=== PATIENT | male | born 1935 | race Caucasian/White ===

== ENCOUNTER → 2018-07-06 09:28 | Outpatient (CLI) | payer MEDICARE, OTHER, SELFPAY ==
--- NOTE | 2018-07-06 | DI.RAD.S_ITS ---
PROCEDURE: XR HIP W PEL IF DONE LT MIN 4V INDICATIONS: HIP PAIN TECHNIQUE: AP pelvis with lateral view(s) of the bilateral hip(s). COMPARISON: None. FINDINGS: Bones: No fractures or dislocations. Note is made of prior bilateral posterior fixation devices placed along the lower lumbosacral spine, spanning from L4-S1. Normal alignment established. At the hip joints bilaterally there is a mild degree of hip joint osteoarthritis without subluxation. Medial symphysis pubis shows moderate degenerative change. Pelvic ring appears intact. No suspicious bony lesions. Soft tissues: The visualized bowel gas pattern is normal. No suspicious soft tissue calcifications. IMPRESSION: No trauma, pelvis mild hip joint osteoarthritis is present bilaterally without subluxation. Dictated by: Talon Collier M.D. on 07/06/2018 at 10:06 Approved by: Talon Collier M.D. on 07/06/2018 at 10:07
== END ==
PROVIDERS: PCP Internal Medicine; Visit Provider Internal Medicine
DX: M16.0 Bilateral primary osteoarthritis of hip (principal); M25.551 Pain in right hip
CPT/HCPCS: 73522

== ENCOUNTER → 2019-01-16 07:20 | Outpatient (CLI) | payer MEDICARE, OTHER, SELFPAY ==
[2019-01-16 08:11] LABS: Add Manual Diff / Slide Review NO; Basophils Absolute Auto 0 /uL (0-100); Basophils Percent Auto 0.6 % (0-2); Eosinophils Absolute Auto 300 /uL (0-450); Eosinophils Percent Auto 5.3 % (2-4); Lymphocytes Absolute Auto 1900 /uL (1100-4500); Mean Corpuscular HGB Conc 33.3 % (30-36); Mean Corpuscular Hemoglobin 32.9 PG (26-34); Mean Corpuscular Volume 98.8 fL (80-100); Monocytes Absolute Auto 400 /uL (0-900); Neutrophils Absolute Auto 2800 /uL (1500-7000); Neutrophils Percent Auto 51.1 % (50-75); Platelet Count 294 X10^3/uL (150-400); Red Blood Cell Count 3.95 X10^6/uL (4.5-5.9); Red Cell Distribution Width 13.6 % (11.6-14.8); White Blood Cell Count 5.4 X10^3/uL (4.5-11.0)
[2019-01-16 08:36] LABS: Cholesterol 161 mg/dL (140-199); HDL Cholesterol 56 mg/dL (40-60); LDL Cholesterol Calculated 79 mg/dL (<100); Triglycerides 129 mg/dL (35-150)
[2019-01-16 09:11] LABS: Free T3, Triiodothyronine Free 3.27 pg/mL (2.77-5.27); Free T4, Direct Thyroxine 1.18 ng/dL (0.78-2.19)
[2019-01-16 09:24] LABS: Thyroid Stimulating Hormone 0.03 uIU/mL (0.47-4.68)
[2019-01-16 13:26] LABS: Alanine Aminotransferase 28 IU/L (21-72); Albumin 4.5 g/dL (3.5-5.0); Albumin Globulin Ratio 1.5 (1.0-2.8); Alkaline Phosphatase 49 U/L (38-126); Aspartate Aminotransferase 34 IU/L (17-59); Bilirubin Total 0.6 mg/dL (0.2-1.3); Blood Urea Nitrogen 25 mg/dL (9-20); Calcium 9.4 mg/dL (8.4-10.2); Carbon Dioxide 28 mmol/L (22-32); Chloride 103 mmol/L (98-107); Estimated Glomerular Filt Rate > 60.0 mL/min (>60); Globulin 3.1 g/dL (1.7-4.1); Glucose 84 mg/dL (80-110); HEMOLYSIS < 15 (0-50); Potassium 4.8 mmol/L (3.4-5.1); Sodium 139 mmol/L (137-145); Total Protein 7.6 g/dL (6.3-8.2)
== END ==
PROVIDERS: PCP Internal Medicine; Visit Provider Internal Medicine
DX: E78.00 Pure hypercholesterolemia, unspecified (principal); I10 Essential (primary) hypertension; E03.9 Hypothyroidism, unspecified; K22.70 Barrett's esophagus without dysplasia
CPT/HCPCS: 36415; 80053; 80061; 84439; 84443; 84481; 85025

== ENCOUNTER → 2019-09-10 10:28 | Outpatient (CLI) | payer MEDICARE, OTHER, SELFPAY ==
[2019-09-10 12:02] LABS: Alanine Aminotransferase 18 IU/L (21-72); Albumin 4.1 g/dL (3.5-5.0); Albumin Globulin Ratio 1.3 (1.0-2.8); Alkaline Phosphatase 49 U/L (38-126); Aspartate Aminotransferase 29 IU/L (17-59); BUN Creatinine Ratio 23.3 (6-22); Bilirubin Total 0.9 mg/dL (0.2-1.3); Blood Urea Nitrogen 28 mg/dL (9-20); Calcium 9.3 mg/dL (8.4-10.2); Carbon Dioxide 27 mmol/L (22-32); Chloride 101 mmol/L (98-107); Cholesterol 141 mg/dL (140-199); Estimated Glomerular Filt Rate 57.8 mL/min (>60); Globulin 3.1 g/dL (1.7-4.1); Glucose 70 mg/dL (80-110); HDL Cholesterol 38 mg/dL (40-60); HEMOLYSIS < 15 (0-50); LDL Cholesterol Calculated 82 mg/dL (<100); Sodium 134 mmol/L (137-145); Total Protein 7.2 g/dL (6.3-8.2); Triglycerides 106 mg/dL (35-150)
== END ==
PROVIDERS: PCP Internal Medicine; Visit Provider Internal Medicine
DX: E78.00 Pure hypercholesterolemia, unspecified (principal); I10 Essential (primary) hypertension
CPT/HCPCS: 36415; 80053; 80061

== ENCOUNTER 2019-12-23 13:45 | Outpatient (RCR) | payer MEDICARE, OTHER, SELFPAY ==
--- NOTE | 2019-11-29 14:30 | PT.OPPOC ---
Physical, Occupational & Speech Therapy At [facility] Current Diagnoses Unilateral primary osteoarthritis, left knee (11/29/19) Stiffness of left knee, not elsewhere classified (11/29/19) Other abnormalities of gait and mobility (11/29/19) Presence of unspecified artificial knee joint (11/29/19) Visit Care Team Role Provider Type Marino Gallegos MD Attending Provider Physician Primary Care Provider Specialty: Internal Medicine Address: [address] [place] [address], [facility] Email: [email or web address] Plan Of Care PT-OP-T Assessment and Plan Start: 11/29/19 15:22 Freq: Status: Active Protocol: Document 11/29/19 13:45 DCW (Rec: 11/29/19 15:56 DCW [id number]) Physical Therapy Assessment Rehab Potential Rehabilitation Potential Excellent Evaluation Complexity Number of Personal Factors/Comorbidities 1-2 Number of Body Systems Impaired 1-2 Clinical Presentation at Evaluation Stable Impairments Impairments Activity Tolerance,Functional Mobility,Integument,Pain,ROM, Soft Tissue Mobility,Strength Goals Three Impairment Pt post-surgical edema limits ROM Short Term Goal (STG) Pt left knee circumfrential measurements equal to right STG Duration 12/30/19 Half-Way Goal (LTG) Left knee ROM 0?-120? LTG Duration 01/28/20 Two Impairment Pt ambulates ~6 minutes at a time with a SPC Fixture Repairer Fabricator Goal (LTG) Pt to ambulate community distances for 20 minutes without the use of an assistive device LTG Duration 01/28/20 One Impairment Pt does not have an appropriate home exercise program Short Term Goal (STG) Pt to be independent and compliant with an appropriate HEP STG Duration 12/30/19 Assessment Summary Assessment Pt presents 3 days s/p left TKA. Pt is already doing exceptionally well with gait, ROM, strength, and balance. Skilled therapy should focus on improving ROM and strength, as well as reducing dependency on an assistive device. Pt shows appropriate gait pattern, no instances of toe drop, or problems with foot clearance or philippe difficulty. May benefit from modalities focused on pain and edema control. Physical Therapy Plan Frequency and Duration Frequency of Treatment 2x/Week Duration of Treatment 10 weeks Plan of Care Start Date 11/29/19 Plan of Care End Date 02/07/20 Therapeutic Interventions Therapeutic Interventions Balance Training,Gait Training ,Home Exercise Program,Joint Mobilizations,Manual Therapy, Neuromuscular Re-education, Patient/Caregiver Education, Self-Care/Home Management,Soft Tissue Mobilization, Therapeutic Exercises Modalities Cold Pack/Ice Massage,Electric Stimulation,Hot Packs, Ultrasound Next Visit Focus/Plan Next Note Type Treatment Note Next Visit Plan ROM, strengthening, gait/ assistive device training, Plan of Care Dates Plan of Care Start Date 11/29/19 Plan of Care End Date 02/07/20 Electronically Signed by: Kahlil Patel, PT 11/29/19 [id number] Please Sign and Return: I have reviewed this Plan of Care and certify that the skilled therapy services above are required to meet the patient?s needs. Physician Signature Date Printed Name and Credentials Clinical Instructor Signature Printed Name and Credentials
--- NOTE | 2019-11-29 14:30 | PT.OIE ---
Current Diagnoses Unilateral primary osteoarthritis, left knee (11/29/19) Stiffness of left knee, not elsewhere classified (11/29/19) Other abnormalities of gait and mobility (11/29/19) Presence of unspecified artificial knee joint (11/29/19) Visit Care Team Role Provider Type Marino Gallegos MD Attending Provider Physician Primary Care Provider Specialty: Internal Medicine Address: [address] [place] [address], [facility] Email: [email or web address] Physical Therapy Initial Evaluation PT-OP-A Visit Information Start: 11/29/19 15:22 Freq: Status: Active Protocol: Document 11/29/19 13:45 DCW (Rec: 11/29/19 15:40 DCW [id number]) Out-Patient Physical Therapy Visit Information Visit Information Visit Type Initial Evaluation Visit Start Time 13:45 Visit Stop Time 14:30 Total Visit Minutes 45 Visit Number 1 Number of CENTRAL STORES ATTENDANT Visits 0 Evaluation Information Evaluation Date 11/29/19 PT-OP-B Current Condition Start: 11/29/19 15:22 Freq: Status: Active Protocol: Document 11/29/19 13:45 DCW (Rec: 11/29/19 15:40 DCW [id number]) Current Condition History of Current Condition Onset Date 11/26/19 Current Complaints s/p L TKA History of Current Condition Pt is an 84 year old male three days s/p L TKA. Pt underwent surgical intervention after failure of conservative treatment. 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 Pt has been performing his HEP, and has been walking around quite a bit. Pt has already advanced from his FWW to a SPC. Notes he has two stairs to get into his garage, doesn't need to use them, but has anyway, and does not have any difficulty with them. Treatment Goals Patient/Caregiver Goals Get the left one healed up enough that I can get my right one done in the fall. PT-OP-C Subjective Start: 11/29/19 15:22 Freq: Status: Active Protocol: Document 11/29/19 13:45 DCW (Rec: 11/29/19 15:40 DCW [id number]) OP-PT Subjective Patient Comments Patient Comments It has been feeling good, but gets a little stiff when I sit down too long. Patient Reported Progress Improving Patient Questionnaires Lower Extremity Functional Scale LEFS Score 36/80 = 45% OP-PT Pain Assessment Pain Assessment Grid Paper Pain Assessment Grid Completed Yes Location Left Knee Intensity 7 Scale Used Numeric (1 - 10) PT-OP-E Functional Tests Start: 11/29/19 15:22 Freq: Status: Active Protocol: Document 11/29/19 13:45 DCW (Rec: 11/29/19 15:40 DCW [id number]) Functional Tests 6 Minute Walk Test Distance 910 Device Used SPC Comments 2.53 ft/sec PT-OP-F Manual Assessment Start: 11/29/19 15:22 Freq: Status: Active Protocol: Document 11/29/19 13:45 DCW (Rec: 11/29/19 15:40 DCW [id number]) Manual Assessments Joint Mobility Assessment Joint Mobility Assessment Moderate joint effusion PT-OP-J Posture/Palpation/Skin Start: 11/29/19 15:40 Freq: Status: Active Protocol: Document 11/29/19 13:45 DCW (Rec: 11/29/19 15:56 DCW [id number]) Skin Assessment Circumference Measurement 3 Location 10 cm inferior L joint line Measurement (Centimeters) 43.3 Comments 10 cm inferior R joint line= 40.6 2 Location 10 cm superior L joint line Measurement (Centimeters) 47.4 Comments 10 cm superior R joint line = 44.0 1 Location L knee Joint line Measurement (Centimeters) 45.6 Comments R knee joint line = 40.9 cm PT-OP-K Range of Motion Start: 11/29/19 15:22 Freq: Status: Active Protocol: Document 11/29/19 13:45 DCW (Rec: 11/29/19 15:40 DCW [id number]) Knee Goniometric Range of Motion Knee Right Patient Position Supine Flexion Active (degrees) 124 Flexion Passive (degrees) 132 Extension Active (degrees) 0 Extension Passive (degrees) 0 Left Patient Position Supine Flexion Active (degrees) 99 Flexion Passive (degrees) 102 Extension Active (degrees) 14 Extension Passive (degrees) 11 Knee ROM Limitations Knee ROM Limitations Muscle Weakness,Pain,Swelling PT-OP-M Strength Start: 11/29/19 15:22 Freq: Status: Active Protocol: Document 11/29/19 13:45 DCW (Rec: 11/29/19 15:40 DCW [id number]) Knee Strength Knee Manual Muscle Testing Right Flexion (S2) 4 Good Extension (L3) 4 Good Left Flexion (S2) 4+ Good+ Extension (L3) 4 Good PT-OP-Q Treatments Start: 11/29/19 15:22 Freq: Status: Active Protocol: Document 11/29/19 13:45 DCW (Rec: 11/29/19 15:40 DCW [id number]) Cardio Equipment Recumbent Bicycle Duration (Minutes) 5 Resistance 0 Seat Position 3 PT-OP-T Assessment and Plan Start: 11/29/19 15:22 Freq: Status: Active Protocol: Document 11/29/19 13:45 DCW (Rec: 11/29/19 15:56 DCW [id number]) Physical Therapy Assessment Rehab Potential Rehabilitation Potential Excellent Evaluation Complexity Number of Personal Factors/Comorbidities 1-2 Number of Body Systems Impaired 1-2 Clinical Presentation at Evaluation Stable Impairments Impairments Activity Tolerance,Functional Mobility,Integument,Pain,ROM, Soft Tissue Mobility,Strength Goals Three Impairment Pt post-surgical edema limits ROM Short Term Goal (STG) Pt left knee circumfrential measurements equal to right STG Duration 12/30/19 Fabric Worker Supervisor Goal (LTG) Left knee ROM 0?-120? LTG Duration 01/28/20 Two Impairment Pt ambulates ~6 minutes at a time with a SPC Correction Goal (LTG) Pt to ambulate community distances for 20 minutes without the use of an assistive device LTG Duration 01/28/20 One Impairment Pt does not have an appropriate home exercise program Short Term Goal (STG) Pt to be independent and compliant with an appropriate HEP STG Duration 12/30/19 Assessment Summary Assessment Pt presents 3 days s/p left TKA. Pt is already doing exceptionally well with gait, ROM, strength, and balance. Skilled therapy should focus on improving ROM and strength, as well as reducing dependency on an assistive device. Pt shows appropriate gait pattern, no instances of toe drop, or problems with foot clearance or philippe difficulty. May benefit from modalities focused on pain and edema control. Physical Therapy Plan Frequency and Duration Frequency of Treatment 2x/Week Duration of Treatment 10 weeks Plan of Care Start Date 11/29/19 Plan of Care End Date 02/07/20 Therapeutic Interventions Therapeutic Interventions Balance Training,Gait Training ,Home Exercise Program,Joint Mobilizations,Manual Therapy, Neuromuscular Re-education, Patient/Caregiver Education, Self-Care/Home Management,Soft Tissue Mobilization, Therapeutic Exercises Modalities Cold Pack/Ice Massage,Electric Stimulation,Hot Packs, Ultrasound Next Visit Focus/Plan Next Note Type Treatment Note Next Visit Plan ROM, strengthening, gait/ assistive device training,
--- NOTE | 2019-12-02 14:25 | PT.OTN ---
Current Diagnoses Unilateral primary osteoarthritis, left knee (12/02/19) Stiffness of left knee, not elsewhere classified (12/02/19) Other abnormalities of gait and mobility (12/02/19) Presence of unspecified artificial knee joint (12/02/19) Physical Therapy Treatment Note PT-OP-A Visit Information Start: 11/29/19 15:22 Freq: Status: Active Protocol: Document 12/02/19 13:45 DCW (Rec: 12/02/19 14:25 DCW [id number]) Out-Patient Physical Therapy Visit Information Visit Information Visit Type Treatment Note Visit Start Time 13:45 Visit Stop Time 14:30 Total Visit Minutes 45 Visit Number 2 Number of KEYSMITH Visits 0 Evaluation Information Evaluation Date 11/29/19 PT-OP-B Current Condition Start: 11/29/19 15:22 Freq: Status: Active Protocol: Document 11/29/19 13:45 DCW (Rec: 11/29/19 15:40 DCW [id number]) Current Condition History of Current Condition Onset Date 11/26/19 Current Complaints s/p L TKA History of Current Condition Pt is an 84 year old male three days s/p L TKA. Pt underwent surgical intervention after failure of conservative treatment. 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 Pt has been performing his HEP, and has been walking around quite a bit. Pt has already advanced from his FWW to a SPC. Notes he has two stairs to get into his garage, doesn't need to use them, but has anyway, and does not have any difficulty with them. Treatment Goals Patient/Caregiver Goals Get the left one healed up enough that I can get my right one done in the fall. PT-OP-C Subjective Start: 11/29/19 15:22 Freq: Status: Active Protocol: Document 12/02/19 13:45 DCW (Rec: 12/02/19 14:25 DCW [id number]) OP-PT Subjective Patient Comments Patient Comments Pt reports that he has been feeling more sore recently, believes that his swelling has been worse, which is limiting his ROM, but overall is still doing well. PT-OP-E Functional Tests Start: 11/29/19 15:22 Freq: Status: Active Protocol: Document 11/29/19 13:45 DCW (Rec: 11/29/19 15:40 DCW [id number]) Functional Tests 6 Minute Walk Test Distance 910 Device Used SPC Comments 2.53 ft/sec PT-OP-F Manual Assessment Start: 11/29/19 15:22 Freq: Status: Active Protocol: Document 11/29/19 13:45 DCW (Rec: 11/29/19 15:40 DCW [id number]) Manual Assessments Joint Mobility Assessment Joint Mobility Assessment Moderate joint effusion PT-OP-J Posture/Palpation/Skin Start: 11/29/19 15:40 Freq: Status: Active Protocol: Document 11/29/19 13:45 DCW (Rec: 11/29/19 15:56 DCW [id number]) Skin Assessment Circumference Measurement 3 Location 10 cm inferior L joint line Measurement (Centimeters) 43.3 Comments 10 cm inferior R joint line= 40.6 2 Location 10 cm superior L joint line Measurement (Centimeters) 47.4 Comments 10 cm superior R joint line = 44.0 1 Location L knee Joint line Measurement (Centimeters) 45.6 Comments R knee joint line = 40.9 cm PT-OP-K Range of Motion Start: 11/29/19 15:22 Freq: Status: Active Protocol: Document 11/29/19 13:45 DCW (Rec: 11/29/19 15:40 DCW [id number]) Knee Goniometric Range of Motion Knee Right Patient Position Supine Flexion Active (degrees) 124 Flexion Passive (degrees) 132 Extension Active (degrees) 0 Extension Passive (degrees) 0 Left Patient Position Supine Flexion Active (degrees) 99 Flexion Passive (degrees) 102 Extension Active (degrees) 14 Extension Passive (degrees) 11 Knee ROM Limitations Knee ROM Limitations Muscle Weakness,Pain,Swelling PT-OP-M Strength Start: 11/29/19 15:22 Freq: Status: Active Protocol: Document 11/29/19 13:45 DCW (Rec: 11/29/19 15:40 DCW [id number]) Knee Strength Knee Manual Muscle Testing Right Flexion (S2) 4 Good Extension (L3) 4 Good Left Flexion (S2) 4+ Good+ Extension (L3) 4 Good PT-OP-Q Treatments Start: 11/29/19 15:22 Freq: Status: Active Protocol: Document 12/02/19 13:45 DCW (Rec: 12/02/19 14:25 DCW [id number]) Cardio Equipment Recumbent Bicycle Duration (Minutes) 5 Resistance 0 Seat Position 3 Other multiple full rotations forward/backward Gym Equipment Shuttle Recovery Unilateral Squats Resistance 37# Bilateral Squats Resistance 75# Therapeutic Exercises Supine Exercises 2 Supine Exercise Name SLR Side bilateral Resistance 2# 1 Supine Exercise Name SAQ Side left Resistance 2# Standing Exercises 3 Standing Exercise Name Step Flexion stretch Side left Reps/Minutes 10 hold x10 2 Standing Exercise Name Hip Extension Side bilateral Resistance Lv 2 Equipment Used T-band 1 Standing Exercise Name TKE Side left Resistance Lv 2 Equipment Used T-band Other Exercises 1 Other Exercise Name Resisted side-stepping Resistance Yellow Equipment Used T-band PT-OP-T Assessment and Plan Start: 11/29/19 15:22 Freq: Status: Active Protocol: Document 12/02/19 13:45 DCW (Rec: 12/02/19 14:25 DCW [id number]) Physical Therapy Assessment Impairments Impairments Activity Tolerance,Functional Mobility,Integument,Pain,ROM, Soft Tissue Mobility,Strength Goals Three Impairment Pt post-surgical edema limits ROM Short Term Goal (STG) Pt left knee circumfrential measurements equal to right STG Duration 12/30/19 Security Services Manager Goal (LTG) Left knee ROM 0?-120? LTG Duration 01/28/20 Two Impairment Pt ambulates ~6 minutes at a time with a SPC Mcfp Goal (LTG) Pt to ambulate community distances for 20 minutes without the use of an assistive device LTG Duration 01/28/20 One Impairment Pt does not have an appropriate home exercise program Short Term Goal (STG) Pt to be independent and compliant with an appropriate HEP STG Duration 12/30/19 Assessment Summary Assessment Pt still doing well today, although noticeably more sore and swollen coming in to the clinic today. Pt tolerated new exercises well, but did note some increased soreness using leg press. Physical Therapy Plan Frequency and Duration Frequency of Treatment 2x/Week Duration of Treatment 10 weeks Plan of Care Start Date 11/29/19 Plan of Care End Date 02/07/20 Therapeutic Interventions Therapeutic Interventions Balance Training,Gait Training ,Home Exercise Program,Joint Mobilizations,Manual Therapy, Neuromuscular Re-education, Patient/Caregiver Education, Self-Care/Home Management,Soft Tissue Mobilization, Therapeutic Exercises Modalities Cold Pack/Ice Massage,Electric Stimulation,Hot Packs, Ultrasound Next Visit Focus/Plan Next Note Type Treatment Note Next Visit Plan ROM, strengthening, gait/ assistive device training,
--- NOTE | 2019-12-09 14:25 | PT.OTN ---
Current Diagnoses Unilateral primary osteoarthritis, left knee (12/09/19) Stiffness of left knee, not elsewhere classified (12/09/19) Other abnormalities of gait and mobility (12/09/19) Presence of unspecified artificial knee joint (12/09/19) Physical Therapy Treatment Note PT-OP-A Visit Information Start: 11/29/19 15:22 Freq: Status: Active Protocol: Document 12/09/19 13:45 DCW (Rec: 12/09/19 14:25 DCW [id number]) Out-Patient Physical Therapy Visit Information Visit Information Visit Type Treatment Note Visit Start Time 13:45 Visit Stop Time 14:35 Total Visit Minutes 50 Visit Number 3 Number of PACKAGE YARNS DRYING MACHINE OPERATOR Visits 0 Evaluation Information Evaluation Date 11/29/19 PT-OP-B Current Condition Start: 11/29/19 15:22 Freq: Status: Active Protocol: Document 11/29/19 13:45 DCW (Rec: 11/29/19 15:40 DCW [id number]) Current Condition History of Current Condition Onset Date 11/26/19 Current Complaints s/p L TKA History of Current Condition Pt is an 84 year old male three days s/p L TKA. Pt underwent surgical intervention after failure of conservative treatment. 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 Pt has been performing his HEP, and has been walking around quite a bit. Pt has already advanced from his FWW to a SPC. Notes he has two stairs to get into his garage, doesn't need to use them, but has anyway, and does not have any difficulty with them. Treatment Goals Patient/Caregiver Goals Get the left one healed up enough that I can get my right one done in the fall. PT-OP-C Subjective Start: 11/29/19 15:22 Freq: Status: Active Protocol: Document 12/09/19 13:45 DCW (Rec: 12/09/19 14:25 DCW [id number]) OP-PT Subjective Patient Comments Patient Comments I'm doing alright today. I had a bit of a relapse yesterday. I picked up something I probably shouldn't have, and carried it farther than I probably should have. I was pretty sore afterward. PT-OP-E Functional Tests Start: 11/29/19 15:22 Freq: Status: Active Protocol: Document 11/29/19 13:45 DCW (Rec: 11/29/19 15:40 DCW [id number]) Functional Tests 6 Minute Walk Test Distance 910 Device Used SPC Comments 2.53 ft/sec PT-OP-F Manual Assessment Start: 11/29/19 15:22 Freq: Status: Active Protocol: Document 11/29/19 13:45 DCW (Rec: 11/29/19 15:40 DCW [id number]) Manual Assessments Joint Mobility Assessment Joint Mobility Assessment Moderate joint effusion PT-OP-J Posture/Palpation/Skin Start: 11/29/19 15:40 Freq: Status: Active Protocol: Document 11/29/19 13:45 DCW (Rec: 11/29/19 15:56 DCW [id number]) Skin Assessment Circumference Measurement 3 Location 10 cm inferior L joint line Measurement (Centimeters) 43.3 Comments 10 cm inferior R joint line= 40.6 2 Location 10 cm superior L joint line Measurement (Centimeters) 47.4 Comments 10 cm superior R joint line = 44.0 1 Location L knee Joint line Measurement (Centimeters) 45.6 Comments R knee joint line = 40.9 cm PT-OP-K Range of Motion Start: 11/29/19 15:22 Freq: Status: Active Protocol: Document 11/29/19 13:45 DCW (Rec: 11/29/19 15:40 DCW [id number]) Knee Goniometric Range of Motion Knee Right Patient Position Supine Flexion Active (degrees) 124 Flexion Passive (degrees) 132 Extension Active (degrees) 0 Extension Passive (degrees) 0 Left Patient Position Supine Flexion Active (degrees) 99 Flexion Passive (degrees) 102 Extension Active (degrees) 14 Extension Passive (degrees) 11 Knee ROM Limitations Knee ROM Limitations Muscle Weakness,Pain,Swelling PT-OP-M Strength Start: 11/29/19 15:22 Freq: Status: Active Protocol: Document 11/29/19 13:45 DCW (Rec: 11/29/19 15:40 DCW [id number]) Knee Strength Knee Manual Muscle Testing Right Flexion (S2) 4 Good Extension (L3) 4 Good Left Flexion (S2) 4+ Good+ Extension (L3) 4 Good PT-OP-Q Treatments Start: 11/29/19 15:22 Freq: Status: Active Protocol: Document 12/09/19 13:45 DCW (Rec: 12/09/19 14:25 DCW [id number]) Cardio Equipment Recumbent Bicycle Duration (Minutes) 5 Resistance 2 Seat Position 3 Gym Equipment Shuttle Recovery Unilateral Squats Resistance 37# Bilateral Squats Resistance 87# Therapeutic Exercises Supine Exercises 4 Supine Exercise Name Bridging 3 Supine Exercise Name Knee extension stretch Side left Resistance 5# 2 Supine Exercise Name SLR Side bilateral Resistance 3# 1 Supine Exercise Name SAQ Side left Resistance 5# Sitting Exercises 2 Sitting Exercise Name Hamstring curls Side bilateral Resistance Lv 2 Equipment Used T-band 1 Sitting Exercise Name LAQ Side bilateral Resistance 5# Standing Exercises 3 Standing Exercise Name Step Flexion stretch Side left Reps/Minutes 10 hold x10 2 Standing Exercise Name Hip Extension Side bilateral Resistance Yellow Equipment Used T-band 1 Standing Exercise Name TKE Side left Resistance Lv 3 Equipment Used T-band Other Exercises 1 Other Exercise Name Resisted side-stepping Resistance Yellow Equipment Used T-band Manual Therapy Treatment Other Other Manual Treatments PROM Flexion/Extension PT-OP-T Assessment and Plan Start: 11/29/19 15:22 Freq: Status: Active Protocol: Document 12/09/19 13:45 DCW (Rec: 12/09/19 14:25 DCW [id number]) Physical Therapy Assessment Impairments Impairments Activity Tolerance,Functional Mobility,Integument,Pain,ROM, Soft Tissue Mobility,Strength Goals Three Impairment Pt post-surgical edema limits ROM Short Term Goal (STG) Pt left knee circumfrential measurements equal to right STG Duration 12/30/19 Skilled Nursing Goal (LTG) Left knee ROM 0?-120? LTG Duration 01/28/20 Two Impairment Pt ambulates ~6 minutes at a time with a SPC Skilled Nursing Goal (LTG) Pt to ambulate community distances for 20 minutes without the use of an assistive device LTG Duration 01/28/20 One Impairment Pt does not have an appropriate home exercise program Short Term Goal (STG) Pt to be independent and compliant with an appropriate HEP STG Duration 12/30/19 Assessment Summary Assessment Pt continuing to progress well , improved ROM, flexion increased from 102->110. Physical Therapy Plan Frequency and Duration Frequency of Treatment 2x/Week Duration of Treatment 10 weeks Plan of Care Start Date 11/29/19 Plan of Care End Date 02/07/20 Therapeutic Interventions Therapeutic Interventions Balance Training,Gait Training ,Home Exercise Program,Joint Mobilizations,Manual Therapy, Neuromuscular Re-education, Patient/Caregiver Education, Self-Care/Home Management,Soft Tissue Mobilization, Therapeutic Exercises Modalities Cold Pack/Ice Massage,Electric Stimulation,Hot Packs, Ultrasound Next Visit Focus/Plan Next Note Type Treatment Note Next Visit Plan ROM, strengthening, gait/ assistive device training,
--- NOTE | 2019-12-11 14:37 | PT.OTN ---
Current Diagnoses Unilateral primary osteoarthritis, left knee (12/11/19) Stiffness of left knee, not elsewhere classified (12/11/19) Other abnormalities of gait and mobility (12/11/19) Presence of unspecified artificial knee joint (12/11/19) Physical Therapy Treatment Note PT-OP-A Visit Information Start: 11/29/19 15:22 Freq: Status: Active Protocol: Document 12/11/19 13:45 DCW (Rec: 12/11/19 14:36 DCW [id number]) Out-Patient Physical Therapy Visit Information Visit Information Visit Type Treatment Note Visit Start Time 13:45 Visit Stop Time 14:35 Total Visit Minutes 50 Visit Number 3 Number of GUILLOTINE OPERATOR Visits 0 Evaluation Information Evaluation Date 11/29/19 PT-OP-B Current Condition Start: 11/29/19 15:22 Freq: Status: Active Protocol: Document 11/29/19 13:45 DCW (Rec: 11/29/19 15:40 DCW [id number]) Current Condition History of Current Condition Onset Date 11/26/19 Current Complaints s/p L TKA History of Current Condition Pt is an 84 year old male three days s/p L TKA. Pt underwent surgical intervention after failure of conservative treatment. 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 Pt has been performing his HEP, and has been walking around quite a bit. Pt has already advanced from his FWW to a SPC. Notes he has two stairs to get into his garage, doesn't need to use them, but has anyway, and does not have any difficulty with them. Treatment Goals Patient/Caregiver Goals Get the left one healed up enough that I can get my right one done in the fall. PT-OP-C Subjective Start: 11/29/19 15:22 Freq: Status: Active Protocol: Document 12/11/19 13:45 DCW (Rec: 12/11/19 14:36 DCW [id number]) OP-PT Subjective Patient Comments Patient Comments Pt reports his knee has been pretty sore since last Monday, right under the knee cap. Pt thinks he may have strainded something. PT-OP-E Functional Tests Start: 11/29/19 15:22 Freq: Status: Active Protocol: Document 11/29/19 13:45 DCW (Rec: 11/29/19 15:40 DCW [id number]) Functional Tests 6 Minute Walk Test Distance 910 Device Used SPC Comments 2.53 ft/sec PT-OP-F Manual Assessment Start: 11/29/19 15:22 Freq: Status: Active Protocol: Document 11/29/19 13:45 DCW (Rec: 11/29/19 15:40 DCW [id number]) Manual Assessments Joint Mobility Assessment Joint Mobility Assessment Moderate joint effusion PT-OP-J Posture/Palpation/Skin Start: 11/29/19 15:40 Freq: Status: Active Protocol: Document 11/29/19 13:45 DCW (Rec: 11/29/19 15:56 DCW [id number]) Skin Assessment Circumference Measurement 3 Location 10 cm inferior L joint line Measurement (Centimeters) 43.3 Comments 10 cm inferior R joint line= 40.6 2 Location 10 cm superior L joint line Measurement (Centimeters) 47.4 Comments 10 cm superior R joint line = 44.0 1 Location L knee Joint line Measurement (Centimeters) 45.6 Comments R knee joint line = 40.9 cm PT-OP-K Range of Motion Start: 11/29/19 15:22 Freq: Status: Active Protocol: Document 11/29/19 13:45 DCW (Rec: 11/29/19 15:40 DCW [id number]) Knee Goniometric Range of Motion Knee Right Patient Position Supine Flexion Active (degrees) 124 Flexion Passive (degrees) 132 Extension Active (degrees) 0 Extension Passive (degrees) 0 Left Patient Position Supine Flexion Active (degrees) 99 Flexion Passive (degrees) 102 Extension Active (degrees) 14 Extension Passive (degrees) 11 Knee ROM Limitations Knee ROM Limitations Muscle Weakness,Pain,Swelling PT-OP-M Strength Start: 11/29/19 15:22 Freq: Status: Active Protocol: Document 11/29/19 13:45 DCW (Rec: 11/29/19 15:40 DCW [id number]) Knee Strength Knee Manual Muscle Testing Right Flexion (S2) 4 Good Extension (L3) 4 Good Left Flexion (S2) 4+ Good+ Extension (L3) 4 Good PT-OP-Q Treatments Start: 11/29/19 15:22 Freq: Status: Active Protocol: Document 12/11/19 13:45 DCW (Rec: 12/11/19 14:36 DCW [id number]) Cardio Equipment Recumbent Bicycle Duration (Minutes) 5 Resistance 3 Seat Position 3 Gym Equipment Shuttle Recovery Unilateral Squats Resistance 50# Bilateral Squats Resistance 87# Therapeutic Ball Resisted hip flexion Exercise Details Resisted hip/knee flexion with foot on ball Ball Size/Color Blue - 45 cm Lv 3 T-band Body Position Supine Therapeutic Exercises Supine Exercises 3 Supine Exercise Name Knee extension stretch Side left Resistance 5# 2 Supine Exercise Name SLR Side bilateral Resistance 5# Sitting Exercises 2 Sitting Exercise Name Hamstring curls Side bilateral Resistance Lv 2 Equipment Used T-band 1 Sitting Exercise Name LAQ Side bilateral Resistance 5# Standing Exercises 4 Standing Exercise Name Step-ups Equipment Used 6 step, railing 3 Standing Exercise Name Step Flexion stretch Side left Reps/Minutes 10 hold x10 2 Standing Exercise Name Hip Extension Side bilateral Resistance Yellow Equipment Used T-band Other Exercises 1 Other Exercise Name Resisted side-stepping Resistance Yellow Equipment Used T-band Manual Therapy Treatment Other Other Manual Treatments PROM Flexion/Extension PT-OP-R Modalities Start: 11/29/19 15:22 Freq: Status: Active Protocol: Document 12/11/19 13:45 DCW (Rec: 12/11/19 14:37 DCW [id number]) Hot Pack/Cold Pack Treatment Cold Pack Location L knee Patient Position Hooklying Treatment Duration (minutes) 10 Patient Tolerance Good PT-OP-T Assessment and Plan Start: 11/29/19 15:22 Freq: Status: Active Protocol: Document 12/11/19 13:45 DCW (Rec: 12/11/19 14:36 DCW [id number]) Physical Therapy Assessment Impairments Impairments Activity Tolerance,Functional Mobility,Integument,Pain,ROM, Soft Tissue Mobility,Strength Goals Three Impairment Pt post-surgical edema limits ROM Short Term Goal (STG) Pt left knee circumfrential measurements equal to right STG Duration 12/30/19 Personal Lines Advisor Goal (LTG) Left knee ROM 0?-120? LTG Duration 01/28/20 Two Impairment Pt ambulates ~6 minutes at a time with a SPC Penitentiary Goal (LTG) Pt to ambulate community distances for 20 minutes without the use of an assistive device LTG Duration 01/28/20 One Impairment Pt does not have an appropriate home exercise program Short Term Goal (STG) Pt to be independent and compliant with an appropriate HEP STG Duration 12/30/19 Assessment Summary Assessment Pt showing advancement with ROM and strength, motivated to increase HEP. Pt notes he is planning to try to schedule a TKA for his R knee in June. Physical Therapy Plan Frequency and Duration Frequency of Treatment 2x/Week Duration of Treatment 10 weeks Plan of Care Start Date 11/29/19 Plan of Care End Date 02/07/20 Therapeutic Interventions Therapeutic Interventions Balance Training,Gait Training ,Home Exercise Program,Joint Mobilizations,Manual Therapy, Neuromuscular Re-education, Patient/Caregiver Education, Self-Care/Home Management,Soft Tissue Mobilization, Therapeutic Exercises Modalities Cold Pack/Ice Massage,Electric Stimulation,Hot Packs, Ultrasound Next Visit Focus/Plan Next Note Type Treatment Note Next Visit Plan ROM, strengthening, gait/ assistive device training,
--- NOTE | 2019-12-16 14:27 | PT.OTN ---
Current Diagnoses Unilateral primary osteoarthritis, left knee (12/16/19) Stiffness of left knee, not elsewhere classified (12/16/19) Other abnormalities of gait and mobility (12/16/19) Presence of unspecified artificial knee joint (12/16/19) Physical Therapy Treatment Note PT-OP-A Visit Information Start: 11/29/19 15:22 Freq: Status: Active Protocol: Document 12/16/19 13:45 DCW (Rec: 12/16/19 14:26 DCW [id number]) Out-Patient Physical Therapy Visit Information Visit Information Visit Type Treatment Note Visit Start Time 13:45 Visit Stop Time 14:35 Total Visit Minutes 50 Visit Number 5 Number of TEAM OTR TRUCK DRIVER Visits 0 Evaluation Information Evaluation Date 11/29/19 PT-OP-B Current Condition Start: 11/29/19 15:22 Freq: Status: Active Protocol: Document 11/29/19 13:45 DCW (Rec: 11/29/19 15:40 DCW [id number]) Current Condition History of Current Condition Onset Date 11/26/19 Current Complaints s/p L TKA History of Current Condition Pt is an 84 year old male three days s/p L TKA. Pt underwent surgical intervention after failure of conservative treatment. 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 Pt has been performing his HEP, and has been walking around quite a bit. Pt has already advanced from his FWW to a SPC. Notes he has two stairs to get into his garage, doesn't need to use them, but has anyway, and does not have any difficulty with them. Treatment Goals Patient/Caregiver Goals Get the left one healed up enough that I can get my right one done in the fall. PT-OP-C Subjective Start: 11/29/19 15:22 Freq: Status: Active Protocol: Document 12/16/19 13:45 DCW (Rec: 12/16/19 14:26 DCW [id number]) OP-PT Subjective Patient Comments Patient Comments I feel great. I walked the two and a half mile loop around [place]. My knees are a little sore after that, but I've really been working them hard. PT-OP-E Functional Tests Start: 11/29/19 15:22 Freq: Status: Active Protocol: Document 11/29/19 13:45 DCW (Rec: 11/29/19 15:40 DCW [id number]) Functional Tests 6 Minute Walk Test Distance 910 Device Used SPC Comments 2.53 ft/sec PT-OP-F Manual Assessment Start: 11/29/19 15:22 Freq: Status: Active Protocol: Document 11/29/19 13:45 DCW (Rec: 11/29/19 15:40 DCW [id number]) Manual Assessments Joint Mobility Assessment Joint Mobility Assessment Moderate joint effusion PT-OP-J Posture/Palpation/Skin Start: 11/29/19 15:40 Freq: Status: Active Protocol: Document 11/29/19 13:45 DCW (Rec: 11/29/19 15:56 DCW [id number]) Skin Assessment Circumference Measurement 3 Location 10 cm inferior L joint line Measurement (Centimeters) 43.3 Comments 10 cm inferior R joint line= 40.6 2 Location 10 cm superior L joint line Measurement (Centimeters) 47.4 Comments 10 cm superior R joint line = 44.0 1 Location L knee Joint line Measurement (Centimeters) 45.6 Comments R knee joint line = 40.9 cm PT-OP-K Range of Motion Start: 11/29/19 15:22 Freq: Status: Active Protocol: Document 11/29/19 13:45 DCW (Rec: 11/29/19 15:40 DCW [id number]) Knee Goniometric Range of Motion Knee Right Patient Position Supine Flexion Active (degrees) 124 Flexion Passive (degrees) 132 Extension Active (degrees) 0 Extension Passive (degrees) 0 Left Patient Position Supine Flexion Active (degrees) 99 Flexion Passive (degrees) 102 Extension Active (degrees) 14 Extension Passive (degrees) 11 Knee ROM Limitations Knee ROM Limitations Muscle Weakness,Pain,Swelling PT-OP-M Strength Start: 11/29/19 15:22 Freq: Status: Active Protocol: Document 11/29/19 13:45 DCW (Rec: 11/29/19 15:40 DCW [id number]) Knee Strength Knee Manual Muscle Testing Right Flexion (S2) 4 Good Extension (L3) 4 Good Left Flexion (S2) 4+ Good+ Extension (L3) 4 Good PT-OP-Q Treatments Start: 01/10/20 15:22 Freq: Status: Active Protocol: Document 12/16/19 13:45 DCW (Rec: 12/16/19 14:26 DCW [id number]) Cardio Equipment Recumbent Bicycle Duration (Minutes) 5 Resistance 4 Seat Position 3 Gym Equipment Shuttle Recovery Unilateral Squats Resistance 50# Bilateral Squats Resistance 100# Therapeutic Exercises Supine Exercises 3 Supine Exercise Name Knee extension stretch Side left Resistance 5# 2 Supine Exercise Name SLR Side bilateral Resistance 5# 1 Supine Exercise Name SAQ Side left Resistance 5# Sitting Exercises 2 Sitting Exercise Name Hamstring curls Side bilateral Resistance Lv 3 Equipment Used T-band 1 Sitting Exercise Name LAQ Side bilateral Resistance 5# Standing Exercises 4 Standing Exercise Name Step-ups/step-downs Equipment Used 6 step, railing 3 Standing Exercise Name Step Flexion stretch Side left Reps/Minutes 10 hold x10 2 Standing Exercise Name Hip Extension Side bilateral Resistance Yellow Equipment Used T-band Other Exercises 1 Other Exercise Name Resisted side-stepping Resistance Green Equipment Used T-band Manual Therapy Treatment Joint Mobilizations 1 Joint Left knee Direction P->A Grade III Other Other Manual Treatments PROM Flexion/Extension PT-OP-R Modalities Start: 11/29/19 15:22 Freq: Status: Active Protocol: Document 12/16/19 13:45 DCW (Rec: 12/16/19 14:26 DCW [id number]) Hot Pack/Cold Pack Treatment Cold Pack Location L knee Patient Position Hooklying Treatment Duration (minutes) 10 Patient Tolerance Good PT-OP-T Assessment and Plan Start: 11/29/19 15:22 Freq: Status: Active Protocol: Document 12/16/19 13:45 DCW (Rec: 12/16/19 14:26 DCW [id number]) Physical Therapy Assessment Impairments Impairments Activity Tolerance,Functional Mobility,Integument,Pain,ROM, Soft Tissue Mobility,Strength Goals Three Impairment Pt post-surgical edema limits ROM Short Term Goal (STG) Pt left knee circumfrential measurements equal to right STG Duration 12/30/19 Systems Navigator Goal (LTG) Left knee ROM 0?-120? LTG Duration 01/28/20 Two Impairment Pt ambulates ~6 minutes at a time with a SPC Systems Navigator Goal (LTG) Pt to ambulate community distances for 20 minutes without the use of an assistive device LTG Duration 01/28/20 One Impairment Pt does not have an appropriate home exercise program Short Term Goal (STG) Pt to be independent and compliant with an appropriate HEP STG Duration 12/30/19 Assessment Summary Assessment Pt improving his community ambulation and activity tolerance, getting up to 2.5 miles this morning. Pt has decreased pain response, and should continue to progress well with continued therapy. Physical Therapy Plan Frequency and Duration Frequency of Treatment 2x/Week Duration of Treatment 10 weeks Plan of Care Start Date 11/29/19 Plan of Care End Date 02/07/20 Therapeutic Interventions Therapeutic Interventions Balance Training,Gait Training ,Home Exercise Program,Joint Mobilizations,Manual Therapy, Neuromuscular Re-education, Patient/Caregiver Education, Self-Care/Home Management,Soft Tissue Mobilization, Therapeutic Exercises Modalities Cold Pack/Ice Massage,Electric Stimulation,Hot Packs, Ultrasound Next Visit Focus/Plan Next Note Type Treatment Note Next Visit Plan ROM, strengthening, gait training,
--- NOTE | 2019-12-18 14:35 | PT.OTN ---
Current Diagnoses Unilateral primary osteoarthritis, left knee (12/18/19) Stiffness of left knee, not elsewhere classified (12/18/19) Other abnormalities of gait and mobility (12/18/19) Presence of unspecified artificial knee joint (12/18/19) Physical Therapy Treatment Note PT-OP-A Visit Information Start: 11/29/19 15:22 Freq: Status: Active Protocol: Document 12/18/19 13:45 DCW (Rec: 12/18/19 14:35 DCW [id number]) Out-Patient Physical Therapy Visit Information Visit Information Visit Type Treatment Note Visit Start Time 13:45 Visit Stop Time 14:35 Total Visit Minutes 50 Visit Number 6 Number of INTERMEDIATE CARD TENDER Visits 0 Evaluation Information Evaluation Date 11/29/19 PT-OP-B Current Condition Start: 11/29/19 15:22 Freq: Status: Active Protocol: Document 11/29/19 13:45 DCW (Rec: 11/29/19 15:40 DCW [id number]) Current Condition History of Current Condition Onset Date 11/26/19 Current Complaints s/p L TKA History of Current Condition Pt is an 84 year old male three days s/p L TKA. Pt underwent surgical intervention after failure of conservative treatment. 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 Pt has been performing his HEP, and has been walking around quite a bit. Pt has already advanced from his FWW to a SPC. Notes he has two stairs to get into his garage, doesn't need to use them, but has anyway, and does not have any difficulty with them. Treatment Goals Patient/Caregiver Goals Get the left one healed up enough that I can get my right one done in the fall. PT-OP-C Subjective Start: 11/29/19 15:22 Freq: Status: Active Protocol: Document 12/18/19 13:45 DCW (Rec: 12/18/19 14:35 DCW [id number]) OP-PT Subjective Patient Comments Patient Comments Pt reports he has been having some left hip pain since his appointment Monday. Unsure of the cause, but thinks it may have been from the le ress Monday during therapy. PT-OP-E Functional Tests Start: 11/29/19 15:22 Freq: Status: Active Protocol: Document 11/29/19 13:45 DCW (Rec: 11/29/19 15:40 DCW [id number]) Functional Tests 6 Minute Walk Test Distance 910 Device Used SPC Comments 2.53 ft/sec PT-OP-F Manual Assessment Start: 11/29/19 15:22 Freq: Status: Active Protocol: Document 11/29/19 13:45 DCW (Rec: 11/29/19 15:40 DCW [id number]) Manual Assessments Joint Mobility Assessment Joint Mobility Assessment Moderate joint effusion PT-OP-J Posture/Palpation/Skin Start: 11/29/19 15:40 Freq: Status: Active Protocol: Document 11/29/19 13:45 DCW (Rec: 11/29/19 15:56 DCW [id number]) Skin Assessment Circumference Measurement 3 Location 10 cm inferior L joint line Measurement (Centimeters) 43.3 Comments 10 cm inferior R joint line= 40.6 2 Location 10 cm superior L joint line Measurement (Centimeters) 47.4 Comments 10 cm superior R joint line = 44.0 1 Location L knee Joint line Measurement (Centimeters) 45.6 Comments R knee joint line = 40.9 cm PT-OP-K Range of Motion Start: 11/29/19 15:22 Freq: Status: Active Protocol: Document 11/29/19 13:45 DCW (Rec: 11/29/19 15:40 DCW [id number]) Knee Goniometric Range of Motion Knee Right Patient Position Supine Flexion Active (degrees) 124 Flexion Passive (degrees) 132 Extension Active (degrees) 0 Extension Passive (degrees) 0 Left Patient Position Supine Flexion Active (degrees) 99 Flexion Passive (degrees) 102 Extension Active (degrees) 14 Extension Passive (degrees) 11 Knee ROM Limitations Knee ROM Limitations Muscle Weakness,Pain,Swelling PT-OP-M Strength Start: 11/29/19 15:22 Freq: Status: Active Protocol: Document 11/29/19 13:45 DCW (Rec: 11/29/19 15:40 DCW [id number]) Knee Strength Knee Manual Muscle Testing Right Flexion (S2) 4 Good Extension (L3) 4 Good Left Flexion (S2) 4+ Good+ Extension (L3) 4 Good PT-OP-Q Treatments Start: 01/10/20 15:22 Freq: Status: Active Protocol: Document 12/18/19 13:45 DCW (Rec: 12/18/19 14:35 DCW [id number]) Cardio Equipment Recumbent Bicycle Duration (Minutes) 5 Resistance 4 Seat Position 3 Gym Equipment Shuttle Recovery Unilateral Squats Resistance 50# Reps/Time Stopped L d/t knee pain Bilateral Squats Resistance 75# Therapeutic Exercises Supine Exercises 4 Supine Exercise Name Piriformis Stretch Side left Comments Fig-4, [id number] shoulder 3 Supine Exercise Name Knee extension stretch Side left Standing Exercises 3 Standing Exercise Name Step Flexion stretch Side left Reps/Minutes 10 hold x10 2 Standing Exercise Name Hip Extension Side bilateral Resistance Yellow Equipment Used T-band Other Exercises 1 Other Exercise Name Resisted fwd amb, side- stepping Resistance Green Equipment Used T-band Manual Therapy Treatment Joint Mobilizations 1 Joint Left knee Direction P->A Grade III Other Other Manual Treatments PROM Flexion/Extension PT-OP-R Modalities Start: 11/29/19 15:22 Freq: Status: Active Protocol: Document 12/18/19 13:45 DCW (Rec: 12/18/19 14:35 DCW [id number]) Hot Pack/Cold Pack Treatment Cold Pack Location L knee Patient Position Hooklying Treatment Duration (minutes) 10 Patient Tolerance Good PT-OP-T Assessment and Plan Start: 11/29/19 15:22 Freq: Status: Active Protocol: Document 12/18/19 13:45 DCW (Rec: 12/18/19 14:35 DCW [id number]) Physical Therapy Assessment Impairments Impairments Activity Tolerance,Functional Mobility,Integument,Pain,ROM, Soft Tissue Mobility,Strength Goals Three Impairment Pt post-surgical edema limits ROM Short Term Goal (STG) Pt left knee circumfrential measurements equal to right STG Duration 12/30/19 Snf Goal (LTG) Left knee ROM 0?-120? LTG Duration 01/28/20 Two Impairment Pt ambulates ~6 minutes at a time with a SPC Manager Track Goal (LTG) Pt to ambulate community distances for 20 minutes without the use of an assistive device LTG Duration 01/28/20 One Impairment Pt does not have an appropriate home exercise program Short Term Goal (STG) Pt to be independent and compliant with an appropriate HEP STG Duration 12/30/19 Assessment Summary Assessment Took it a little easier in therapy today due to pt's reported left hip and lateral knee pain. Pt felt much better following gentle hip stretching, tolerated activities with lowered resistance. Physical Therapy Plan Frequency and Duration Frequency of Treatment 2x/Week Duration of Treatment 10 weeks Plan of Care Start Date 11/29/19 Plan of Care End Date 02/07/20 Therapeutic Interventions Therapeutic Interventions Balance Training,Gait Training ,Home Exercise Program,Joint Mobilizations,Manual Therapy, Neuromuscular Re-education, Patient/Caregiver Education, Self-Care/Home Management,Soft Tissue Mobilization, Therapeutic Exercises Modalities Cold Pack/Ice Massage,Electric Stimulation,Hot Packs, Ultrasound Next Visit Focus/Plan Next Note Type Treatment Note Next Visit Plan ROM, strengthening, gait training,
--- NOTE | 2019-12-23 14:21 | PT.OTN ---
Current Diagnoses Unilateral primary osteoarthritis, left knee (12/23/19) Stiffness of left knee, not elsewhere classified (12/23/19) Other abnormalities of gait and mobility (12/23/19) Presence of unspecified artificial knee joint (12/23/19) Physical Therapy Treatment Note PT-OP-A Visit Information Start: 11/29/19 15:22 Freq: Status: Active Protocol: Document 12/23/19 13:45 DCW (Rec: 12/23/19 14:18 DCW [id number]) Out-Patient Physical Therapy Visit Information Visit Information Visit Type Discharge Summary Visit Start Time 13:45 Visit Stop Time 14:15 Total Visit Minutes 30 Visit Number 7 Number of FINANCIAL SYSTEMS ADMINISTRATOR Visits 0 Evaluation Information Evaluation Date 11/29/19 PT-OP-B Current Condition Start: 11/29/19 15:22 Freq: Status: Active Protocol: Document 11/29/19 13:45 DCW (Rec: 11/29/19 15:40 DCW [id number]) Current Condition History of Current Condition Onset Date 11/26/19 Current Complaints s/p L TKA History of Current Condition Pt is an 84 year old male three days s/p L TKA. Pt underwent surgical intervention after failure of conservative treatment. 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 Pt has been performing his HEP, and has been walking around quite a bit. Pt has already advanced from his FWW to a SPC. Notes he has two stairs to get into his garage, doesn't need to use them, but has anyway, and does not have any difficulty with them. Treatment Goals Patient/Caregiver Goals Get the left one healed up enough that I can get my right one done in the fall. 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 Pt notes that unfortunately, this means that he will be too bust for the next six weeks to attend therapy, and requests discharge at this time. PT-OP-E Functional Tests Start: 11/29/19 15:22 Freq: Status: Active Protocol: Document 12/23/19 13:45 DCW (Rec: 12/23/19 14:13 DCW [id number]) Functional Tests 6 Minute Walk Test Distance 1455 Device Used none Comments 4.04 ft/sec PT-OP-F Manual Assessment Start: 11/29/19 15:22 Freq: Status: Active Protocol: Document 12/23/19 13:45 DCW (Rec: 12/23/19 14:13 DCW [id number]) Manual Assessments Joint Mobility Assessment Joint Mobility Assessment Joint effusion WNL PT-OP-J Posture/Palpation/Skin Start: 11/29/19 15:40 Freq: Status: Active Protocol: Document 12/23/19 13:45 DCW (Rec: 12/23/19 14:13 DCW [id number]) Skin Assessment Circumference Measurement 3 Location 10 cm inferior L joint line Measurement (Centimeters) 37.9 Comments 10 cm inferior R joint line= 40.6 2 Location 10 cm superior L joint line Measurement (Centimeters) 43.6 Comments 10 cm superior R joint line = 44.0 1 Location L knee Joint line Measurement (Centimeters) 41.1 Comments R knee joint line = 40.9 cm PT-OP-K Range of Motion Start: 11/29/19 15:22 Freq: Status: Active Protocol: Document 12/23/19 13:45 DCW (Rec: 12/23/19 14:13 DCW [id number]) Knee Goniometric Range of Motion Knee Left Patient Position Supine Flexion Active (degrees) 119 Flexion Passive (degrees) 122 Extension Active (degrees) 2 Extension Passive (degrees) 0 PT-OP-M Strength Start: 11/29/19 15:22 Freq: Status: Active Protocol: Document 12/23/19 13:45 DCW (Rec: 12/23/19 14:13 DCW [id number]) Knee Strength Knee Manual Muscle Testing Right Flexion (S2) 4 Good Extension (L3) 4 Good Left Flexion (S2) 5 Normal Extension (L3) 5 Normal PT-OP-Q Treatments Start: 11/29/19 15:22 Freq: Status: Active Protocol: Document 12/23/19 13:45 DCW (Rec: 12/23/19 14:18 DCW [id number]) Cardio Equipment Recumbent Bicycle Duration (Minutes) 5 Resistance 4 Seat Position 3 Manual Therapy Treatment Other Other Manual Treatments Testing: ROM, MMT, 6MWT, Circumfrential measurements PT-OP-R Modalities Start: 11/29/19 15:22 Freq: Status: Active Protocol: Document 12/18/19 13:45 DCW (Rec: 12/18/19 14:35 DCW [id number]) Hot Pack/Cold Pack Treatment Cold Pack Location L knee Patient Position Hooklying Treatment Duration (minutes) 10 Patient Tolerance Good PT-OP-T Assessment and Plan Start: 11/29/19 15:22 Freq: Status: Active Protocol: Document 12/23/19 13:45 DCW (Rec: 12/23/19 14:21 DCW [id number]) Physical Therapy Assessment Impairments Impairments Activity Tolerance,Functional Mobility,Integument,Pain,ROM, Soft Tissue Mobility,Strength Goals Three Impairment Pt post-surgical edema limits ROM Short Term Goal (STG) Pt left knee circumfrential measurements equal to right STG Duration Met Manager Plan Goal (LTG) Left knee ROM 0?-120? LTG Duration 01/28/20 - Close, 2-119 AROM Two Impairment Pt ambulates ~6 minutes at a time with a SPC Fpc Goal (LTG) Pt to ambulate community distances for 20 minutes without the use of an assistive device LTG Duration Met One Impairment Pt does not have an appropriate home exercise program Short Term Goal (STG) Pt to be independent and compliant with an appropriate HEP STG Duration Met Progress Towards Goals Progress Towards Goals Progressing Toward Goals,Goals Met Assessment Summary Assessment Pt goals largely met, only 2 degrees lacking extension and 1 degree lacking flexion from goal. Pt requests discharge at this time due to change in work schedule. Pt doing very well, will likely adjust to independent HEP with no issues . Pt planning to return to therapy following a R TKA, whenever this happens to be. Physical Therapy Plan Frequency and Duration Frequency of Treatment 2x/Week Duration of Treatment 10 weeks Plan of Care Start Date 11/29/19 Plan of Care End Date 02/07/20 Therapeutic Interventions Therapeutic Interventions Balance Training,Gait Training ,Home Exercise Program,Joint Mobilizations,Manual Therapy, Neuromuscular Re-education, Patient/Caregiver Education, Self-Care/Home Management,Soft Tissue Mobilization, Therapeutic Exercises Modalities Cold Pack/Ice Massage,Electric Stimulation,Hot Packs, Ultrasound Discharge Physical Therapy Discharge Reasons Patient Request Next Visit Focus/Plan Next Note Type Discharge Summary
== END 2019-12-25 13:39 ==
LOC: PHYS 13:45
PROVIDERS: PCP Internal Medicine; Visit Provider Internal Medicine
DX: M17.12 Unilateral primary osteoarthritis, left knee (principal); Z96.659 Presence of unspecified artificial knee joint; M25.662 Stiffness of left knee, not elsewhere classified; R26.89 Other abnormalities of gait and mobility
CPT/HCPCS: 97110; 97140; 97161

== ENCOUNTER → 2020-01-23 07:24 | Outpatient (CLI) | payer MEDICARE, OTHER, SELFPAY ==
[2020-01-23 08:17] LABS: Add Manual Diff / Slide Review NO; Basophils Absolute Auto 100 /uL (0-100); Basophils Percent Auto 1.4 % (0-2); Eosinophils Absolute Auto 300 /uL (0-450); Eosinophils Percent Auto 4.2 % (2-4); Hematocrit 35.2 % (41-53); Hemoglobin 12.3 g/dL (13.5-17.5); Lymphocytes Absolute Auto 1700 /uL (1100-4500); Lymphocytes Percent Auto 26.7 % (25-40); Mean Corpuscular HGB Conc 34.9 % (30-36); Mean Corpuscular Hemoglobin 33.3 PG (26-34); Mean Corpuscular Volume 95.5 fL (80-100); Monocytes Absolute Auto 400 /uL (0-900); Monocytes Percent Auto 6.1 % (3-14); Neutrophils Absolute Auto 3800 /uL (1500-7000); Neutrophils Percent Auto 61.6 % (50-75); Platelet Count 331 X10^3/uL (150-400); Red Blood Cell Count 3.68 X10^6/uL (4.5-5.9); Red Cell Distribution Width 14.3 % (11.6-14.8); White Blood Cell Count 6.2 X10^3/uL (4.5-11.0)
[2020-01-23 08:30] LABS: Alanine Aminotransferase 18 IU/L (<50); Albumin 4.4 g/dL (3.5-5.0); Albumin Globulin Ratio 1.4 (1.0-2.8); Alkaline Phosphatase 59 U/L (38-126); Aspartate Aminotransferase 34 IU/L (17-59); BUN Creatinine Ratio 28.8 (6-22); Bilirubin Total 0.6 mg/dL (0.2-1.3); Blood Urea Nitrogen 23 mg/dL (9-20); Calcium 9.7 mg/dL (8.4-10.2); Carbon Dioxide 28 mmol/L (22-32); Chloride 101 mmol/L (98-107); Estimated Glomerular Filt Rate > 60.0 mL/min (>60); Globulin 3.1 g/dL (1.7-4.1); Glucose 91 mg/dL (80-110); HEMOLYSIS < 15 (0-50); Potassium 4.8 mmol/L (3.4-5.1); Sodium 139 mmol/L (137-145); Total Protein 7.5 g/dL (6.3-8.2)
[2020-01-23 08:59] LABS: TSH w/ Reflex to FT4 0.08 uIU/mL (0.47-4.68)
[2020-01-23 10:01] LABS: Free T4, Direct Thyroxine 1.35 ng/dL (0.78-2.19)
== END ==
PROVIDERS: PCP Internal Medicine; Referring Provider Internal Medicine; Visit Provider Internal Medicine
DX: E03.9 Hypothyroidism, unspecified (principal); K22.70 Barrett's esophagus without dysplasia; I70.8 Atherosclerosis of other arteries
CPT/HCPCS: 36415; 80053; 84439; 84443; 85025

== ENCOUNTER → 2020-01-27 14:02 | Outpatient (CLI) | payer MEDICARE, OTHER, SELFPAY | PROVIDERS: PCP Internal Medicine; Referring Provider Internal Medicine; Visit Provider Internal Medicine | DX: M85.852 Other specified disorders of bone density and structure, left thigh (principal); E07.9 Disorder of thyroid, unspecified | CPT/HCPCS: 77080 ==

== ENCOUNTER → 2020-03-09 07:24 | Outpatient (CLI) | payer MEDICARE, OTHER, SELFPAY ==
[2020-03-09 09:21] LABS: Add Manual Diff / Slide Review NO; Basophils Absolute Auto 0 /uL (0-100); Basophils Percent Auto 0.5 % (0-2); Eosinophils Absolute Auto 300 /uL (0-450); Eosinophils Percent Auto 4.5 % (2-4); Hematocrit 36.4 % (41-53); Hemoglobin 12.3 g/dL (13.5-17.5); Lymphocytes Absolute Auto 2000 /uL (1100-4500); Lymphocytes Percent Auto 36.6 % (25-40); Mean Corpuscular HGB Conc 33.7 % (30-36); Mean Corpuscular Hemoglobin 32.6 PG (26-34); Mean Corpuscular Volume 96.6 fL (80-100); Monocytes Absolute Auto 500 /uL (0-900); Monocytes Percent Auto 8.3 % (3-14); Neutrophils Absolute Auto 2800 /uL (1500-7000); Neutrophils Percent Auto 50.1 % (50-75); Platelet Count 293 X10^3/uL (150-400); Red Blood Cell Count 3.77 X10^6/uL (4.5-5.9); Red Cell Distribution Width 14.5 % (11.6-14.8); White Blood Cell Count 5.5 X10^3/uL (4.5-11.0)
[2020-03-09 09:56] LABS: Alanine Aminotransferase 19 IU/L (<50); Albumin 4.3 g/dL (3.5-5.0); Albumin Globulin Ratio 1.4 (1.0-2.8); Alkaline Phosphatase 48 U/L (38-126); Aspartate Aminotransferase 35 IU/L (17-59); BUN Creatinine Ratio 33.3 (6-22); Bilirubin Total 0.6 mg/dL (0.2-1.3); Blood Urea Nitrogen 34 mg/dL (9-20); Calcium 9.5 mg/dL (8.4-10.2); Carbon Dioxide 28 mmol/L (22-32); Chloride 104 mmol/L (98-107); Cholesterol 190 mg/dL (140-199); Estimated Glomerular Filt Rate > 60.0 mL/min (>60); Globulin 3.1 g/dL (1.7-4.1); Glucose 77 mg/dL (80-110); HDL Cholesterol 49 mg/dL (40-60); HEMOLYSIS < 15 (0-50); LDL Cholesterol Calculated 121 mg/dL (<100); Potassium 4.9 mmol/L (3.4-5.1); Sodium 138 mmol/L (137-145); Total Protein 7.4 g/dL (6.3-8.2); Triglycerides 98 mg/dL (35-150)
== END ==
PROVIDERS: PCP Internal Medicine; Referring Provider Internal Medicine Cardiovascular Disease; Visit Provider Internal Medicine Cardiovascular Disease
DX: I42.9 Cardiomyopathy, unspecified (principal); I10 Essential (primary) hypertension; I44.1 Atrioventricular block, second degree; E78.5 Hyperlipidemia, unspecified; E03.9 Hypothyroidism, unspecified; I49.5 Sick sinus syndrome
CPT/HCPCS: 36415; 80053; 80061; 84439; 84443; 85025

== ENCOUNTER → 2020-03-15 08:59 | Outpatient (CLI) | payer MEDICARE, OTHER, SELFPAY ==
[2020-03-16 03:21] LABS: COVID19 Sendout Not Detected (Not Detect)
== END ==
PROVIDERS: PCP Internal Medicine; Visit Provider Registered Nurse
DX: Z01.812 Encounter for preprocedural laboratory examination (principal)
CPT/HCPCS: 87635

== ENCOUNTER 2020-05-18 10:30 | Outpatient (RCR) | payer MEDICARE, OTHER, SELFPAY ==
--- NOTE | 2020-04-22 10:30 | PT.OIE ---
Current Diagnoses Pain in right knee (04/22/20) Pain in left knee (04/22/20) Stiffness of right hip, not elsewhere classified (04/22/20) Weakness (04/22/20) Strain of left quadriceps muscle, fascia and tendon, subsequent encounter (04/22/20) Past Medical History (Last Updated 12/08/19 @ 18:54 by INDY Henson) Fatigue (Chronic) Obstructive sleep apnea (Chronic) Pacemaker (Acute) Restless legs syndrome (RLS) (Suspected) Snoring (Chronic) Past Surgical History (Last Updated 12/08/19 @ 18:50 by INDY Henson) History of total left knee replacement (TKR) (Acute) Visit Care Team Role Provider Type Marino Gallegos MD Primary Care Provider Physician Specialty: Internal Medicine Address: [address] [place] [address], [facility] Email: [email or web address] Dar Suazo MD Attending Provider Non-Staff Referring Provider Specialty: Orthopedics Address: [address] [place] [address], [facility] Email: Physical Therapy Initial Evaluation PT-OP-A Visit Information Start: 04/24/20 11:11 Freq: Status: Active Protocol: Document 04/22/20 09:45 DCW (Rec: 04/24/20 11:54 [facility] [id number]) Out-Patient Physical Therapy Visit Information Visit Information Visit Type Initial Evaluation Visit Start Time 09:45 Visit Stop Time 10:30 Total Visit Minutes 45 Visit Number 1 Number of CUP SETTER LOCKSTITCH Visits 0 Evaluation Information Evaluation Date 04/22/20 PT-OP-B Current Condition Start: 04/24/20 11:11 Freq: Status: Active Protocol: Document 04/22/20 09:45 DCW (Rec: 04/24/20 11:54 [facility] [id number]) Current Condition History of Current Condition Onset Date 01/01/20 Current Complaints Left knee pain, right hip pain , deconditioning, weakness, fatigue History of Current Condition Pt is an 84 year old male presenting to skilled PT four month s/p fall onto his left knee. Pt had previously been seen at this clinic in November and February of this year following a L TKA, and pt responded very well to therapy , and was incredibly happy with his level of function. Unfortunately, 9 days after discharge, pt caught his foot on a shelving unit at a grocery store, tripped, and fell, which resulted in a patella fracture and required a surgical debridement of the quad tendon to remove a bone chip. Pt notes that now he has done pretty much no exercise for the last 15 weeks, but recently returned to walking the [place] (2 miles) with his . Pt had previously been doing this in ~42 minutes, however this morning was the first time he has been able to do it in under an hour since his fall. Pt also reports that either from the fall, the lack of exercise, or the change in his gait pattern, his posterior right hip has been spasming, which makes his right leg feel like it's shorter, and this also affects his ability to walk. Prior Treatments and Tests PT following TKA Nov-Dec 2019 Surgical debridement of Quadricep tendon 03/11/20 Treatment Goals Patient/Caregiver Goals Pt's goal is to strengthen his legs and loosen up his back PT-OP-C Subjective Start: 04/24/20 11:11 Freq: Status: Active Protocol: Document 04/22/20 09:45 DCW (Rec: 04/24/20 11:54 DCW [id number]) OP-PT Subjective Patient Comments Patient Comments My hates walking with me right now, because if it's not my knee slowing us down, it's my back tightening up. I carry a cane with me just so I can use it to try to loosen up my back while I walk. Patient Reported Progress Improving PT-OP-D Balance Start: 04/24/20 11:11 Freq: Status: Active Protocol: Document 04/22/20 09:45 DCW (Rec: 04/24/20 11:54 DCW [id number]) Balance Tests Single Limb Standing Single Limb- Right 3 seconds Single Limb- Left 2 seconds PT-OP-E Functional Tests Start: 04/24/20 11:11 Freq: Status: Active Protocol: Document 04/22/20 09:45 DCW (Rec: 04/24/20 11:54 DCW [id number]) Functional Tests 6 Minute Walk Test Distance 1192 Device Used none Comments 3.31 ft/sec PT-OP-F Manual Assessment Start: 04/24/20 11:11 Freq: Status: Active Protocol: Document 04/22/20 09:45 DCW (Rec: 04/24/20 11:54 DCW [id number]) Manual Assessments Soft Tissue Assessment Soft Tissue Mobility Assessment Edema and tenderness 2/4: pain with wincing along lateral L knee. 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 PT-OP-K Range of Motion Start: 04/24/20 11:54 Freq: Status: Active Protocol: Document 04/22/20 09:45 DCW (Rec: 04/24/20 11:55 DCW [id number]) Knee Goniometric Range of Motion Knee Right Patient Position Supine Flexion Active (degrees) 123 Extension Active (degrees) 0 Left Patient Position Supine Flexion Active (degrees) 124 Extension Active (degrees) 4 PT-OP-M Strength Start: 04/24/20 11:11 Freq: Status: Active Protocol: Document 04/22/20 09:45 DCW (Rec: 04/24/20 11:54 DCW [id number]) Hip Strength Hip Manual Muscle Testing Right Flexion (L2) 4 Good Abduction 4 Good Adduction 4 Good Left Flexion (L2) 4 Good Abduction 4 Good Adduction 4 Good Knee Strength Knee Manual Muscle Testing Right Flexion (S2) 4+ Good+ Extension (L3) 4+ Good+ Left Flexion (S2) 4- Good- Extension (L3) 4- Good- Comments Pain with resisted extension PT-OP-Q Treatments Start: 04/24/20 11:11 Freq: Status: Active Protocol: Document 04/22/20 09:45 DCW (Rec: 04/24/20 11:54 DCW [id number]) Gym Equipment Shuttle Recovery Unilateral Squats Resistance 50# Shuttle Recovery Platform Stable Reps/Time Stopped R d/t knee pain Bilateral Squats Resistance 100# Shuttle Recovery Platform Stable PT-OP-T Assessment and Plan Start: 04/24/20 11:11 Freq: Status: Active Protocol: Document 04/22/20 09:45 DCW (Rec: 04/24/20 11:54 DCW [id number]) Physical Therapy Assessment Rehab Potential Rehabilitation Potential Good Evaluation Complexity Number of Personal Factors/Comorbidities 1-2 Number of Body Systems Impaired 3 Clinical Presentation at Evaluation Stable Impairments Impairments Activity Tolerance,Balance, Functional Activities, Functional Mobility,Gait,Pain, ROM,Strength Goals Four Impairment 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 Snf Goal (LTG) Pt to present with no mechanical leg length discrepancy LTG Duration 06/22/20 Three Impairment Pt demonstrates poor SLS (2 seconds L, 3 seconds R) Snf Goal (LTG) Pt to perform SLS for 10 seconds bilaterally LTG Duration 06/22/20 Two Impairment Pt walks [place] loop in 1 hour Snf Goal (LTG) Pt to ambulate around [place] loop in 45 minutes LTG Duration 06/22/20 One Impairment Pt does not have an appropriate home exercise program Short Term Goal (STG) Pt to be independent and compliant with an appropriate HEP STG Duration 05/22/20 Assessment Summary Assessment Pt presents 15 weeks s/p fall onto left knee, which resulted in a patellar fracture and required surgical debriedment of the left quadricep tendon. Pt displays mild loss of ROM, left knee weakness, decreased activity tolerance, pain and hypertonia in right low back, and a mechanical LLD. Skilled physical therapy should be helpful in addressing these functional limitations, and should focus on improving strength, ROM, and mobility of his knee, as well as using STM and manual therapy to address the dysfunction of his right QL. Pt should also benefit from balance training, and work on activity tolerance to achieve his goal of walking the [place] loop in the same amount of time he used to be able to do it, which was ~42 minutes. Physical Therapy Plan Frequency and Duration Frequency of Treatment 2x/Week Duration of Treatment 10 weeks Plan of Care Start Date 04/22/20 Plan of Care End Date 07/01/20 Therapeutic Interventions Therapeutic Interventions Aquatic Therapy,Balance Training,Gait Training,Home Exercise Program,Joint Mobilizations,Manual Therapy, Neuromuscular Re-education, Patient/Caregiver Education, Self-Care/Home Management,Soft Tissue Mobilization, Therapeutic Exercises, Vestibular Rehabilitation Modalities Cold Pack/Ice Massage,Electric Stimulation,Hot Packs, Ultrasound Next Visit Focus/Plan Next Note Type Treatment Note Next Visit Plan STM to R QL, flexibility, ROM, strengthening of left knee
--- NOTE | 2020-04-22 10:30 | PT.OPPOC ---
Physical, Occupational & Speech Therapy At [facility] Current Diagnoses Pain in right knee (04/22/20) Pain in left knee (04/22/20) Stiffness of right hip, not elsewhere classified (04/22/20) Weakness (04/22/20) Strain of left quadriceps muscle, fascia and tendon, subsequent encounter (04/22/20) Visit Care Team Role Provider Type Marino Gallegos MD Primary Care Provider Physician Specialty: Internal Medicine Address: [address] [place] [address], [facility] Email: [email or web address] Dar Suazo MD Attending Provider Non-Staff Referring Provider Specialty: Orthopedics Address: [address] [place] [address], [facility] Email: Plan Of Care PT-OP-T Assessment and Plan Start: 04/24/20 11:11 Freq: Status: Active Protocol: Document 04/22/20 09:45 DCW (Rec: 04/24/20 11:54 DCW [id number]) Physical Therapy Assessment Rehab Potential Rehabilitation Potential Good Evaluation Complexity Number of Personal Factors/Comorbidities 1-2 Number of Body Systems Impaired 3 Clinical Presentation at Evaluation Stable Impairments Impairments Activity Tolerance,Balance, Functional Activities, Functional Mobility,Gait,Pain, ROM,Strength Goals Four Impairment 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 in 45 minutes LTG Duration 06/22/20 One Impairment Pt does not have an appropriate home exercise program Short Term Goal (STG) Pt to be independent and compliant with an appropriate HEP STG Duration 05/22/20 Assessment Summary Assessment Pt presents 15 weeks s/p fall onto left knee, which resulted in a patellar fracture and required surgical debriedment of the left quadricep tendon. Pt displays mild loss of ROM, left knee weakness, decreased activity tolerance, pain and hypertonia in right low back, and a mechanical LLD. Skilled thysical therapy should be helpful in addressing these functional limitations, and should focus on improving strength, ROM, and mobility of his knee, as well as using STM and manual therapy to address the dysfunction of his right QL. Pt should also benefit from balance training, and work on activity tolerance to achieve his goal of walking the [employer] loop in the same amount of time he used to be able to do it, which was ~42 minutes. Physical Therapy Plan Frequency and Duration Frequency of Treatment 2x/Week Duration of Treatment 10 weeks Plan of Care Start Date 04/22/20 Plan of Care End Date 07/01/20 Therapeutic Interventions Therapeutic Interventions Aquatic Therapy,Balance Training,Gait Training,Home Exercise Program,Joint Mobilizations,Manual Therapy, Neuromuscular Re-education, Patient/Caregiver Education, Self-Care/Home Management,Soft Tissue Mobilization, Therapeutic Exercises, Vestibular Rehabilitation Modalities Cold Pack/Ice Massage,Electric Stimulation,Hot Packs, Ultrasound Next Visit Focus/Plan Next Note Type Treatment Note Next Visit Plan STM to R QL, flexibility, ROM, strengthening of left knee Plan of Care Dates Plan of Care Start Date 04/22/20 Plan of Care End Date 07/01/20 Electronically Signed by: Kahlil Patel, PT 04/24/20 5172 Please Sign and Return: I have reviewed this Plan of Care and certify that the skilled therapy services above are required to meet the patient?s needs. Physician Signature Date Printed Name and Credentials Clinical Instructor Signature Printed Name and Credentials
--- NOTE | 2020-04-27 17:27 | PT.OTN ---
Current Diagnoses Pain in right knee (04/27/20) Pain in left knee (04/27/20) Stiffness of right hip, not elsewhere classified (04/27/20) Weakness (04/27/20) Strain of left quadriceps muscle, fascia and tendon, subsequent encounter (04/27/20) Physical Therapy Treatment Note PT-OP-A Visit Information Start: 04/24/20 11:11 Freq: Status: Active Protocol: Document 04/27/20 16:45 DCW (Rec: 04/27/20 17:27 DCW [id number]) Out-Patient Physical Therapy Visit Information Visit Information Visit Type Treatment Note Visit Start Time 16:45 Visit Stop Time 17:25 Total Visit Minutes 40 Visit Number 2 Number of ENDOSCOPY TECH Visits 0 Evaluation Information Evaluation Date 04/22/20 PT-OP-B Current Condition Start: 04/24/20 11:11 Freq: Status: Active Protocol: Document 04/22/20 09:45 DCW (Rec: 04/24/20 11:54 DCW [id number]) Current Condition History of Current Condition Onset Date 01/01/20 Current Complaints Left knee pain, right hip pain , deconditioning, weakness, fatigue History of Current Condition Pt is an 84 year old male presenting to skilled PT four month s/p fall onto his left knee. Pt had previously been seen at this clinic in November and December of this year following a L TKA, and pt responded very well to therapy , and was incredibly happy with his level of function. Unfortunately, 9 days after discharge, pt caught his foot on a shelving unit at a grocery store, tripped, and fell, which resulted in a patella fracture and required a surgical debridement of the quad tendon to remove a bone chip. Pt notes that now he has done pretty much no exercise for the last 15 weeks, but recently returned to walking the [employer] (2 miles) with his . Pt had previously been doing this in ~42 minutes, however this morning was the first time he has been able to do it in under an hour since his fall. Pt also reports that either from the fall, the lack of exercise, or the change in his gait pattern, his posterior right hip has been spasming, which makes his right leg feel like it's shorter, and this also affects his ability to walk. Prior Treatments and Tests PT following TKA Nov-Dec 2019 Surgical debridement of Quadricep tendon 03/11/20 Treatment Goals Patient/Caregiver Goals Pt's goal is to strengthen his legs and loosen up his back PT-OP-C Subjective Start: 04/24/20 11:11 Freq: Status: Active Protocol: Document 04/27/20 16:45 DCW (Rec: 04/27/20 17:27 DCW [id number]) OP-PT Subjective Patient Comments Patient Comments I feel better today than I have since my fall. I set a new personal best time around [facility] (since injury) of 54 minutes. PT-OP-D Balance Start: 04/24/20 11:11 Freq: Status: Active Protocol: Document 04/22/20 09:45 DCW (Rec: 04/24/20 11:54 DCW [id number]) Balance Tests Single Limb Standing Single Limb- Right 3 seconds Single Limb- Left 2 seconds PT-OP-E Functional Tests Start: 04/24/20 11:11 Freq: Status: Active Protocol: Document 04/22/20 09:45 DCW (Rec: 04/24/20 11:54 DCW [id number]) Functional Tests 6 Minute Walk Test Distance 1192 Device Used none Comments 3.31 ft/sec PT-OP-F Manual Assessment Start: 04/24/20 11:11 Freq: Status: Active Protocol: Document 04/22/20 09:45 DCW (Rec: 04/24/20 11:54 DCW [id number]) Manual Assessments Soft Tissue Assessment Soft Tissue Mobility Assessment Edema and tenderness 2/4: pain with wincing along lateral L knee. 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 PT-OP-K Range of Motion Start: 04/24/20 11:54 Freq: Status: Active Protocol: Document 04/22/20 09:45 DCW (Rec: 04/24/20 11:55 DCW [id number]) Knee Goniometric Range of Motion Knee Right Patient Position Supine Flexion Active (degrees) 123 Extension Active (degrees) 0 Left Patient Position Supine Flexion Active (degrees) 124 Extension Active (degrees) 4 PT-OP-M Strength Start: 04/24/20 11:11 Freq: Status: Active Protocol: Document 04/22/20 09:45 DCW (Rec: 04/24/20 11:54 DCW [id number]) Hip Strength Hip Manual Muscle Testing Right Flexion (L2) 4 Good Abduction 4 Good Adduction 4 Good Left Flexion (L2) 4 Good Abduction 4 Good Adduction 4 Good Knee Strength Knee Manual Muscle Testing Right Flexion (S2) 4+ Good+ Extension (L3) 4+ Good+ Left Flexion (S2) 4- Good- Extension (L3) 4- Good- Comments Pain with resisted extension PT-OP-Q Treatments Start: 04/24/20 11:11 Freq: Status: Active Protocol: Document 04/27/20 16:45 DCW (Rec: 04/27/20 17:27 DCW [id number]) Cardio Equipment Recumbent Bicycle Duration (Minutes) 5 Resistance 5 Seat Position 5 Gym Equipment Cable Column (Body Solid) Leg Extension Details L Resistance 10# Reps/Time Stopped d/t pain Leg Curl Details L Resistance 30# Reps/Time x15 Shuttle Recovery Unilateral Squats Resistance 50# Shuttle Recovery Platform Stable Reps/Time x15 Bilateral Squats Resistance 100# Shuttle Recovery Platform Stable Reps/Time x15 Therapeutic Exercises Supine Exercises 3 Supine Exercise Name PROM knee extension stretch 2 Supine Exercise Name HS stretch 1 Supine Exercise Name PROM Knee flexion stretch Sitting Exercises 1 Sitting Exercise Name Seated forward flexion Manual Therapy Treatment Soft Tissue Mobilization 1 Body Location R QL Mobilization Type Sustained Pressure,Trigger Point Release Intensity/Depth Moderate Body Position Sidelying Joint Mobilizations 1 Joint Patellar mobilization Direction Superior<->Inferior Grade III PT-OP-T Assessment and Plan Start: 04/24/20 11:11 Freq: Status: Active Protocol: Document 04/27/20 16:45 DCW (Rec: 04/27/20 17:27 DCW [id number]) Physical Therapy Assessment Impairments Impairments Activity Tolerance,Balance, Functional Activities, Functional Mobility,Gait,Pain, ROM,Strength Goals Four Impairment 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 in 45 minutes LTG Duration 06/22/20 One Impairment Pt does not have an appropriate home exercise program Short Term Goal (STG) Pt to be independent and compliant with an appropriate HEP STG Duration 05/22/20 Assessment Summary Assessment Pt tolerated treatment very well today, already showing progress from last week's initial evaluation. Skilled PT should continue to work on decreasing tone of QL and improving knee mobility. 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 Physical Therapy Plan Frequency and Duration Frequency of Treatment 2x/Week Duration of Treatment 10 weeks Plan of Care Start Date 04/22/20 Plan of Care End Date 07/01/20 Therapeutic Interventions Therapeutic Interventions Aquatic Therapy,Balance Training,Gait Training,Home Exercise Program,Joint Mobilizations,Manual Therapy, Neuromuscular Re-education, Patient/Caregiver Education, Self-Care/Home Management,Soft Tissue Mobilization, Therapeutic Exercises, Vestibular Rehabilitation Modalities Cold Pack/Ice Massage,Electric Stimulation,Hot Packs, Ultrasound Next Visit Focus/Plan Next Note Type Treatment Note Next Visit Plan STM to R QL, flexibility, ROM, strengthening of left knee
--- NOTE | 2020-05-05 10:30 | PT.OTN ---
Current Diagnoses Pain in right knee (05/05/20) Pain in left knee (05/05/20) Stiffness of right hip, not elsewhere classified (05/05/20) Weakness (05/05/20) Strain of left quadriceps muscle, fascia and tendon, subsequent encounter (05/05/20) Physical Therapy Treatment Note PT-OP-A Visit Information Start: 04/24/20 11:11 Freq: Status: Active Protocol: Document 05/05/20 09:47 DCW (Rec: 05/05/20 10:29 DCW [id number]) Out-Patient Physical Therapy Visit Information Visit Information Visit Type Treatment Note Visit Start Time 09:47 Visit Stop Time 10:30 Total Visit Minutes 43 Visit Number 3 Number of CLIPPER OPERATOR Visits 0 Evaluation Information Evaluation Date 04/22/20 PT-OP-B Current Condition Start: 04/24/20 11:11 Freq: Status: Active Protocol: Document 04/22/20 09:45 DCW (Rec: 04/24/20 11:54 DCW [id number]) Current Condition History of Current Condition Onset Date 01/01/20 Current Complaints Left knee pain, right hip pain , deconditioning, weakness, fatigue History of Current Condition Pt is an 84 year old male presenting to skilled PT four month s/p fall onto his left knee. Pt had previously been seen at this clinic in November and December of this year following a L TKA, and pt responded very well to therapy , and was incredibly happy with his level of function. Unfortunately, 9 days after discharge, pt caught his foot on a shelving unit at a grocery store, tripped, and fell, which resulted in a patella fracture and required a surgical debridement of the quad tendon to remove a bone chip. Pt notes that now he has done pretty much no exercise for the last 15 weeks, but recently returned to walking the [employer] (2 miles) with his . Pt had previously been doing this in ~42 minutes, however this morning was the first time he has been able to do it in under an hour since his fall. Pt also reports that either from the fall, the lack of exercise, or the change in his gait pattern, his posterior right hip has been spasming, which makes his right leg feel like it's shorter, and this also affects his ability to walk. Prior Treatments and Tests PT following TKA Nov-Dec 2019 Surgical debridement of Quadricep tendon 03/11/20 Treatment Goals Patient/Caregiver Goals Pt's goal is to strengthen his legs and loosen up his back PT-OP-C Subjective Start: 04/24/20 11:11 Freq: Status: Active Protocol: Document 05/05/20 09:47 DCW (Rec: 05/05/20 10:29 DCW [id number]) OP-PT Subjective Patient Comments Patient Comments Pt notes both his knee and back have been feeling better, and he hasn't gotten any spasm walking since his last visit following the manual therapy. PT-OP-D Balance Start: 04/24/20 11:11 Freq: Status: Active Protocol: Document 04/22/20 09:45 DCW (Rec: 04/24/20 11:54 DCW [id number]) Balance Tests Single Limb Standing Single Limb- Right 3 seconds Single Limb- Left 2 seconds PT-OP-E Functional Tests Start: 04/24/20 11:11 Freq: Status: Active Protocol: Document 04/22/20 09:45 DCW (Rec: 04/24/20 11:54 DCW [id number]) Functional Tests 6 Minute Walk Test Distance 1192 Device Used none Comments 3.31 ft/sec PT-OP-F Manual Assessment Start: 04/24/20 11:11 Freq: Status: Active Protocol: Document 04/22/20 09:45 DCW (Rec: 04/24/20 11:54 DCW [id number]) Manual Assessments Soft Tissue Assessment Soft Tissue Mobility Assessment Edema and tenderness 2/4: pain with wincing along lateral L knee. 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 PT-OP-K Range of Motion Start: 04/24/20 11:54 Freq: Status: Active Protocol: Document 04/22/20 09:45 DCW (Rec: 04/24/20 11:55 DCW [id number]) Knee Goniometric Range of Motion Knee Right Patient Position Supine Flexion Active (degrees) 123 Extension Active (degrees) 0 Left Patient Position Supine Flexion Active (degrees) 124 Extension Active (degrees) 4 PT-OP-M Strength Start: 04/24/20 11:11 Freq: Status: Active Protocol: Document 04/22/20 09:45 DCW (Rec: 04/24/20 11:54 DCW [id number]) Hip Strength Hip Manual Muscle Testing Right Flexion (L2) 4 Good Abduction 4 Good Adduction 4 Good Left Flexion (L2) 4 Good Abduction 4 Good Adduction 4 Good Knee Strength Knee Manual Muscle Testing Right Flexion (S2) 4+ Good+ Extension (L3) 4+ Good+ Left Flexion (S2) 4- Good- Extension (L3) 4- Good- Comments Pain with resisted extension PT-OP-Q Treatments Start: 04/24/20 11:11 Freq: Status: Active Protocol: Document 05/05/20 09:47 DCW (Rec: 05/05/20 10:29 DCW [id number]) Cardio Equipment Recumbent Bicycle Duration (Minutes) 5 Resistance 6 Seat Position 5 Gym Equipment Shuttle Recovery Unilateral Squats Resistance 50# Shuttle Recovery Platform Stable Reps/Time x15 Bilateral Squats Details decreased weight secondary to R knee pain Resistance 87# Shuttle Recovery Platform Stable Reps/Time x15 Therapeutic Exercises Supine Exercises 3 Supine Exercise Name PROM knee extension stretch 2 Supine Exercise Name HS stretch 1 Supine Exercise Name PROM Knee flexion stretch Standing Exercises 1 Standing Exercise Name Step up/down Side bilateral Equipment Used 6 step Reps/Minutes x10 each Manual Therapy Treatment Soft Tissue Mobilization 1 Body Location R QL Mobilization Type Sustained Pressure,Trigger Point Release Intensity/Depth Moderate Body Position Sidelying Joint Mobilizations 1 Joint Patellar mobilization Direction Superior<->Inferior Grade III Neuro Re-Education Treatment Balance Activities 1 Details SLS Surface firm PT-OP-T Assessment and Plan Start: 04/24/20 11:11 Freq: Status: Active Protocol: Document 05/05/20 09:47 DCW (Rec: 05/05/20 10:29 VAW [id number]) Physical Therapy Assessment Goals Four Impairment 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 in 45 minutes LTG Duration 06/22/20 One Impairment Pt does not have an appropriate home exercise program Short Term Goal (STG) Pt to be independent and compliant with an appropriate HEP STG Duration 05/22/20 Assessment Summary Assessment Pt doing well, showing improvement in strength and ROM. Some increased complaints of knee pain today, almost exclusively on R side. Physical Therapy Plan Frequency and Duration Frequency of Treatment 2x/Week Duration of Treatment 10 weeks Plan of Care Start Date 04/22/20 Plan of Care End Date 07/01/20 Therapeutic Interventions Therapeutic Interventions Aquatic Therapy,Balance Training,Gait Training,Home Exercise Program,Joint Mobilizations,Manual Therapy, Neuromuscular Re-education, Patient/Caregiver Education, Self-Care/Home Management,Soft Tissue Mobilization, Therapeutic Exercises, Vestibular Rehabilitation Modalities Cold Pack/Ice Massage,Electric Stimulation,Hot Packs, Ultrasound Next Visit Focus/Plan Next Note Type Treatment Note Next Visit Plan STM to R QL, flexibility, ROM, strengthening of left knee
--- NOTE | 2020-05-11 14:49 | PT-OP ANOTE ---
Pt appeared to no show to his appointment today, therapist called to check in, and pt reported he requested a cancellation in response to the [employer] text last Monday.
--- NOTE | 2020-05-13 11:10 | PT.OTN ---
Current Diagnoses Pain in right knee (05/13/20) Pain in left knee (05/13/20) Stiffness of right hip, not elsewhere classified (05/13/20) Weakness (05/13/20) Strain of left quadriceps muscle, fascia and tendon, subsequent encounter (05/13/20) Physical Therapy Treatment Note PT-OP-A Visit Information Start: 04/24/20 11:11 Freq: Status: Active Protocol: Document 05/13/20 10:30 DCW (Rec: 05/13/20 11:10 DCW [id number]) Out-Patient Physical Therapy Visit Information Visit Information Visit Type Treatment Note Visit Start Time 10:30 Visit Stop Time 11:15 Total Visit Minutes 45 Visit Number 4 Number of BAGGAGE PORTER Visits 0 Evaluation Information Evaluation Date 04/22/20 PT-OP-B Current Condition Start: 04/24/20 11:11 Freq: Status: Active Protocol: Document 04/22/20 09:45 DCW (Rec: 04/24/20 11:54 DCW [id number]) Current Condition History of Current Condition Onset Date 01/01/20 Current Complaints Left knee pain, right hip pain , deconditioning, weakness, fatigue History of Current Condition Pt is an 84 year old male presenting to skilled PT four month s/p fall onto his left knee. Pt had previously been seen at this clinic in November and December of this year following a L TKA, and pt responded very well to therapy , and was incredibly happy with his level of function. Unfortunately, 9 days after discharge, pt caught his foot on a shelving unit at a grocery store, tripped, and fell, which resulted in a patella fracture and required a surgical debridement of the quad tendon to remove a bone chip. Pt notes that now he has done pretty much no exercise for the last 15 weeks, but recently returned to walking the [employer] (2 miles) with his . Pt had previously been doing this in ~42 minutes, however this morning was the first time he has been able to do it in under an hour since his fall. Pt also reports that either from the fall, the lack of exercise, or the change in his gait pattern, his posterior right hip has been spasming, which makes his right leg feel like it's shorter, and this also affects his ability to walk. Prior Treatments and Tests PT following TKA Nov-Dec 2019 Surgical debridement of Quadricep tendon 03/11/20 Treatment Goals Patient/Caregiver Goals Pt's goal is to strengthen his legs and loosen up his back PT-OP-C Subjective Start: 04/24/20 11:11 Freq: Status: Active Protocol: Document 05/13/20 10:30 DCW (Rec: 05/13/20 11:10 DCW [id number]) OP-PT Subjective Patient Comments Patient Comments I'm feeling pretty good today . I think I'm to the point where my right knee is the only thing limiting me. PT-OP-D Balance Start: 04/24/20 11:11 Freq: Status: Active Protocol: Document 04/22/20 09:45 DCW (Rec: 04/24/20 11:54 DCW [id number]) Balance Tests Single Limb Standing Single Limb- Right 3 seconds Single Limb- Left 2 seconds PT-OP-E Functional Tests Start: 04/24/20 11:11 Freq: Status: Active Protocol: Document 04/22/20 09:45 DCW (Rec: 04/24/20 11:54 DCW [id number]) Functional Tests 6 Minute Walk Test Distance 1192 Device Used none Comments 3.31 ft/sec PT-OP-F Manual Assessment Start: 04/24/20 11:11 Freq: Status: Active Protocol: Document 04/22/20 09:45 DCW (Rec: 04/24/20 11:54 DCW [id number]) Manual Assessments Soft Tissue Assessment Soft Tissue Mobility Assessment Edema and tenderness 2/4: pain with wincing along lateral L knee. 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 PT-OP-K Range of Motion Start: 04/24/20 11:54 Freq: Status: Active Protocol: Document 04/22/20 09:45 DCW (Rec: 04/24/20 11:55 DCW [id number]) Knee Goniometric Range of Motion Knee Right Patient Position Supine Flexion Active (degrees) 123 Extension Active (degrees) 0 Left Patient Position Supine Flexion Active (degrees) 124 Extension Active (degrees) 4 PT-OP-M Strength Start: 04/24/20 11:11 Freq: Status: Active Protocol: Document 04/22/20 09:45 DCW (Rec: 04/24/20 11:54 DCW [id number]) Hip Strength Hip Manual Muscle Testing Right Flexion (L2) 4 Good Abduction 4 Good Adduction 4 Good Left Flexion (L2) 4 Good Abduction 4 Good Adduction 4 Good Knee Strength Knee Manual Muscle Testing Right Flexion (S2) 4+ Good+ Extension (L3) 4+ Good+ Left Flexion (S2) 4- Good- Extension (L3) 4- Good- Comments Pain with resisted extension PT-OP-Q Treatments Start: 04/24/20 11:11 Freq: Status: Active Protocol: Document 05/13/20 10:30 DCW (Rec: 05/13/20 11:10 DCW [id number]) Cardio Equipment Recumbent Bicycle Duration (Minutes) 5 Resistance 8 Seat Position 5 Gym Equipment Shuttle Recovery Unilateral Squats Details L only Resistance 50# Shuttle Recovery Platform Stable Reps/Time x15 Bilateral Squats Resistance 87# Shuttle Recovery Platform Stable Reps/Time 2x15 Therapeutic Exercises Supine Exercises 1 Supine Exercise Name PROM Knee flexion stretch Standing Exercises 3 Standing Exercise Name BOSU lunge Side left 2 Standing Exercise Name Mini-squats Comments Limited by R knee pain Manual Therapy Treatment Soft Tissue Mobilization 1 Body Location R QL Mobilization Type Sustained Pressure,Trigger Point Release Intensity/Depth Moderate Body Position Sidelying Joint Mobilizations 1 Joint Patellar mobilization Direction Superior<->Inferior Grade III PT-OP-T Assessment and Plan Start: 04/24/20 11:11 Freq: Status: Active Protocol: Document 05/13/20 10:30 DCW (Rec: 05/13/20 11:10 DCW [id number]) Physical Therapy Assessment Impairments Impairments Activity Tolerance,Balance, Functional Activities, Functional Mobility,Gait,Pain, ROM,Strength Goals Four Impairment 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 Esthetician/Owner Goal (LTG) Pt to present with no mechanical leg length discrepancy LTG Duration 06/22/20 Three Impairment Pt demonstrates poor SLS (2 seconds L, 3 seconds R) Esthetician/Owner Goal (LTG) Pt to perform SLS for 10 seconds bilaterally LTG Duration 06/22/20 Two Impairment Pt walks [facility] in 1 hour Esthetician/Owner Goal (LTG) Pt to ambulate around [facility] in 45 minutes LTG Duration 06/22/20 One Impairment Pt does not have an appropriate home exercise program Short Term Goal (STG) Pt to be independent and compliant with an appropriate HEP STG Duration 05/22/20 Assessment Summary Assessment Pt continues to show improvement, has reduced his Luke loop to 52 minutes, down from 60 at the time of his eval. Pt mainly limited due to decreased activity tolerance, notes his legs both still feel weak. Physical Therapy Plan Frequency and Duration Frequency of Treatment 2x/Week Duration of Treatment 10 weeks Plan of Care Start Date 04/22/20 Plan of Care End Date 07/01/20 Therapeutic Interventions Therapeutic Interventions Aquatic Therapy,Balance Training,Gait Training,Home Exercise Program,Joint Mobilizations,Manual Therapy, Neuromuscular Re-education, Patient/Caregiver Education, Self-Care/Home Management,Soft Tissue Mobilization, Therapeutic Exercises, Vestibular Rehabilitation Modalities Cold Pack/Ice Massage,Electric Stimulation,Hot Packs, Ultrasound Next Visit Focus/Plan Next Note Type Treatment Note Next Visit Plan STM to R QL, flexibility, ROM, strengthening of left knee
--- NOTE | 2020-05-18 11:11 | PT.OTN ---
Current Diagnoses Pain in right knee (05/18/20) Pain in left knee (05/18/20) Stiffness of right hip, not elsewhere classified (05/18/20) Weakness (05/18/20) Strain of left quadriceps muscle, fascia and tendon, subsequent encounter (05/18/20) Physical Therapy Treatment Note PT-OP-A Visit Information Start: 04/24/20 11:11 Freq: Status: Active Protocol: Document 05/18/20 10:30 DCW (Rec: 05/18/20 11:08 DCW [id number]) Out-Patient Physical Therapy Visit Information Visit Information Visit Type Treatment Note Visit Start Time 10:30 Visit Stop Time 11:10 Total Visit Minutes 40 Visit Number 5 Number of PRODUCT SUPPORT ENGINEER Visits 0 Evaluation Information Evaluation Date 04/22/20 PT-OP-B Current Condition Start: 04/24/20 11:11 Freq: Status: Active Protocol: Document 04/22/20 09:45 DCW (Rec: 04/24/20 11:54 DCW [id number]) Current Condition History of Current Condition Onset Date 01/01/20 Current Complaints Left knee pain, right hip pain , deconditioning, weakness, fatigue History of Current Condition Pt is an 84 year old male presenting to skilled PT four month s/p fall onto his left knee. Pt had previously been seen at this clinic in November and December of this year following a L TKA, and pt responded very well to therapy , and was incredibly happy with his level of function. Unfortunately, 9 days after discharge, pt caught his foot on a shelving unit at a grocery store, tripped, and fell, which resulted in a patella fracture and required a surgical debridement of the quad tendon to remove a bone chip. Pt notes that now he has done pretty much no exercise for the last 15 weeks, but recently returned to walking the [place] (2 miles) with his . Pt had previously been doing this in ~42 minutes, however this morning was the first time he has been able to do it in under an hour since his fall. Pt also reports that either from the fall, the lack of exercise, or the change in his gait pattern, his posterior right hip has been spasming, which makes his right leg feel like it's shorter, and this also affects his ability to walk. Prior Treatments and Tests PT following TKA Nov-Dec 2019 Surgical debridement of Quadricep tendon 03/11/20 Treatment Goals Patient/Caregiver Goals Pt's goal is to strengthen his legs and loosen up his back PT-OP-C Subjective Start: 04/24/20 11:11 Freq: Status: Active Protocol: Document 05/18/20 10:30 DCW (Rec: 05/18/20 11:08 DCW [id number]) OP-PT Subjective Patient Comments Patient Comments I did [place] in 40 minutes, two days in a row, so I'm feeling great. The only thing I got going on now is my right knee. PT-OP-D Balance Start: 04/24/20 11:11 Freq: Status: Active Protocol: Document 04/22/20 09:45 DCW (Rec: 04/24/20 11:54 DCW [id number]) Balance Tests Single Limb Standing Single Limb- Right 3 seconds Single Limb- Left 2 seconds PT-OP-E Functional Tests Start: 04/24/20 11:11 Freq: Status: Active Protocol: Document 04/22/20 09:45 DCW (Rec: 04/24/20 11:54 DCW [id number]) Functional Tests 6 Minute Walk Test Distance 1192 Device Used none Comments 3.31 ft/sec PT-OP-F Manual Assessment Start: 04/24/20 11:11 Freq: Status: Active Protocol: Document 04/22/20 09:45 DCW (Rec: 04/24/20 11:54 DCW [id number]) Manual Assessments Soft Tissue Assessment Soft Tissue Mobility Assessment Edema and tenderness 2/4: pain with wincing along lateral L knee. 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 PT-OP-K Range of Motion Start: 04/24/20 11:54 Freq: Status: Active Protocol: Document 04/22/20 09:45 DCW (Rec: 04/24/20 11:55 DCW [id number]) Knee Goniometric Range of Motion Knee Right Patient Position Supine Flexion Active (degrees) 123 Extension Active (degrees) 0 Left Patient Position Supine Flexion Active (degrees) 124 Extension Active (degrees) 4 PT-OP-M Strength Start: 04/24/20 11:11 Freq: Status: Active Protocol: Document 04/22/20 09:45 DCW (Rec: 04/24/20 11:54 DCW [id number]) Hip Strength Hip Manual Muscle Testing Right Flexion (L2) 4 Good Abduction 4 Good Adduction 4 Good Left Flexion (L2) 4 Good Abduction 4 Good Adduction 4 Good Knee Strength Knee Manual Muscle Testing Right Flexion (S2) 4+ Good+ Extension (L3) 4+ Good+ Left Flexion (S2) 4- Good- Extension (L3) 4- Good- Comments Pain with resisted extension PT-OP-Q Treatments Start: 04/24/20 11:11 Freq: Status: Active Protocol: Document 05/18/20 10:30 DCW (Rec: 05/18/20 11:08 DCW [id number]) Cardio Equipment Recumbent Bicycle Duration (Minutes) 5 Resistance 6 Seat Position 5 Gym Equipment Shuttle Recovery Unilateral Squats Details L only Resistance 62# Shuttle Recovery Platform Stable Reps/Time x15 Bilateral Squats Resistance 87# Shuttle Recovery Platform Stable Reps/Time 2x15 Therapeutic Exercises Supine Exercises 3 Supine Exercise Name PROM knee extension stretch 1 Supine Exercise Name PROM Knee flexion stretch Standing Exercises 3 Standing Exercise Name BOSU lunge Side left 1 Standing Exercise Name Step up Side left Equipment Used 6 step Reps/Minutes x15 Manual Therapy Treatment Soft Tissue Mobilization 1 Body Location R QL Mobilization Type Sustained Pressure,Trigger Point Release Intensity/Depth Moderate Body Position Sidelying Joint Mobilizations 1 Joint Patellar mobilization Direction Superior<->Inferior Grade III Neuro Re-Education Treatment Balance Activities 1 Details SLS Surface firm Comments 10 sec R 12 sec L PT-OP-T Assessment and Plan Start: 04/24/20 11:11 Freq: Status: Active Protocol: Document 05/18/20 10:30 DCW (Rec: 05/18/20 11:08 DCW [id number]) Physical Therapy Assessment Impairments Impairments Activity Tolerance,Balance, Functional Activities, Functional Mobility,Gait,Pain, ROM,Strength Goals Four Impairment 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 [facility] Goal (LTG) Pt to present with no mechanical leg length discrepancy LTG Duration Met Three Impairment Pt demonstrates poor SLS (2 seconds L, 3 seconds R) Bag Machine Operator Helper Goal (LTG) Pt to perform SLS for 10 seconds bilaterally LTG Duration Met Two Impairment Pt walks [facility] in 1 hour [facility] Goal (LTG) Pt to ambulate around [facility] in 45 minutes LTG Duration Met - 40 minutes One Impairment Pt does not have an appropriate home exercise program Short Term Goal (STG) Pt to be independent and compliant with an appropriate HEP STG Duration Met Progress Towards Goals Progress Towards Goals Goals Met Assessment Summary Assessment Pt has met all goals at this time. Pt feeling good with current progress, feels biggest obstacle to improving at this time is waiting for R TKA. Pt should continue independent HEP, and is appropriate for discharge from skilled therapy. Physical Therapy Plan Frequency and Duration Frequency of Treatment 2x/Week Duration of Treatment 10 weeks Plan of Care Start Date 04/22/20 Plan of Care End Date 07/01/20 Therapeutic Interventions Therapeutic Interventions Aquatic Therapy,Balance Training,Gait Training,Home Exercise Program,Joint Mobilizations,Manual Therapy, Neuromuscular Re-education, Patient/Caregiver Education, Self-Care/Home Management,Soft Tissue Mobilization, Therapeutic Exercises, Vestibular Rehabilitation Modalities Cold Pack/Ice Massage,Electric Stimulation,Hot Packs, Ultrasound Discharge Physical Therapy Discharge Reasons Goals Met Next Visit Focus/Plan Next Note Type Discharge Summary
== END 2020-05-26 09:00 ==
LOC: PHYS 10:30
PROVIDERS: PCP Internal Medicine; Referring Provider Orthopaedic Surgery; Visit Provider Orthopaedic Surgery
DX: S76.112D Strain of left quadriceps muscle, fascia and tendon, subsequent encounter (principal); R53.1 Weakness; M25.562 Pain in left knee; M25.561 Pain in right knee; M25.651 Stiffness of right hip, not elsewhere classified
CPT/HCPCS: 97110; 97140; 97161

== ENCOUNTER → 2020-07-15 08:44 | Outpatient (CLI) | payer MEDICARE, OTHER, SELFPAY ==
[2020-07-15 09:52] LABS: Add Manual Diff / Slide Review NO; Basophils Absolute Auto 0 /uL (0-100); Basophils Percent Auto 0.5 % (0-2); Eosinophils Absolute Auto 300 /uL (0-450); Eosinophils Percent Auto 5.4 % (2-4); Hemoglobin 12.4 g/dL (13.5-17.5); Lymphocytes Absolute Auto 2400 /uL (1100-4500); Lymphocytes Percent Auto 38.4 % (25-40); Mean Corpuscular HGB Conc 33.5 % (30-36); Mean Corpuscular Hemoglobin 32.7 PG (26-34); Mean Corpuscular Volume 97.5 fL (80-100); Monocytes Absolute Auto 600 /uL (0-900); Monocytes Percent Auto 9.5 % (3-14); Neutrophils Absolute Auto 2900 /uL (1500-7000); Neutrophils Percent Auto 46.2 % (50-75); Platelet Count 278 X10^3/uL (150-400); White Blood Cell Count 6.3 X10^3/uL (4.5-11.0)
[2020-07-15 10:19] LABS: Alanine Aminotransferase 21 IU/L (<50); Albumin 4.4 g/dL (3.5-5.0); Albumin Globulin Ratio 1.6 (1.0-2.8); Alkaline Phosphatase 50 U/L (38-126); Aspartate Aminotransferase 32 IU/L (17-59); BUN Creatinine Ratio 23.8 (6-22); Bilirubin Total 0.7 mg/dL (0.2-1.3); Blood Urea Nitrogen 24 mg/dL (9-20); Calcium 9.8 mg/dL (8.4-10.2); Carbon Dioxide 29 mmol/L (22-32); Chloride 101 mmol/L (98-107); Cholesterol 170 mg/dL (140-199); Estimated Glomerular Filt Rate > 60.0 mL/min (>60); Globulin 2.7 g/dL (1.7-4.1); Glucose 83 mg/dL (80-110); HDL Cholesterol 58 mg/dL (40-60); HEMOLYSIS < 15 (0-50); LDL Cholesterol Calculated 79 mg/dL (<100); Potassium 5.4 mmol/L (3.4-5.1); Sodium 137 mmol/L (137-145); Total Protein 7.1 g/dL (6.3-8.2); Triglycerides 164 mg/dL (35-150)
[2020-07-15 10:42] LABS: Thyroid Stimulating Hormone 0.051 uIU/mL (0.47-4.68)
== END ==
PROVIDERS: PCP Internal Medicine; Referring Provider Internal Medicine; Visit Provider Internal Medicine
DX: E03.9 Hypothyroidism, unspecified (principal); I10 Essential (primary) hypertension; E78.00 Pure hypercholesterolemia, unspecified; D64.9 Anemia, unspecified
CPT/HCPCS: 36415; 80053; 80061; 84443; 85025

== ENCOUNTER → 2020-08-17 14:35 | Outpatient (CLI) | payer MEDICARE, OTHER, SELFPAY ==
[2020-08-17 16:42] LABS: BUN Creatinine Ratio 25.2 (6-22); Blood Urea Nitrogen 26 mg/dL (9-20); Calcium 9.2 mg/dL (8.4-10.2); Carbon Dioxide 28 mmol/L (22-32); Chloride 99 mmol/L (98-107); Estimated Glomerular Filt Rate > 60.0 mL/min (>60); Glucose 85 mg/dL (80-110); HEMOLYSIS < 15 (0-50); Potassium 4.9 mmol/L (3.4-5.1); Sodium 135 mmol/L (137-145)
[2020-08-17 16:55] LABS: Free T3, Triiodothyronine Free 3.24 pg/mL (2.77-5.27); Free T4, Direct Thyroxine 1.42 ng/dL (0.78-2.19)
[2020-08-17 17:08] LABS: Thyroid Stimulating Hormone 0.105 uIU/mL (0.47-4.68)
== END ==
PROVIDERS: PCP Internal Medicine; Referring Provider Internal Medicine; Visit Provider Internal Medicine
DX: I10 Essential (primary) hypertension (principal); E03.9 Hypothyroidism, unspecified
CPT/HCPCS: 36415; 80048; 84439; 84443; 84481

== ENCOUNTER → 2020-12-17 12:51 | Outpatient (CLI) | payer MEDICARE, OTHER, SELFPAY ==
[2020-12-17] MEDS: COVID-19 VACC #1, MRNA(MOD) 100 MCG/0.5 ML VIAL IM (12:58)
== END ==
PROVIDERS: PCP Internal Medicine; Visit Provider Internal Medicine
DX: Z23 Encounter for immunization (principal)
CPT/HCPCS: 0011A; 91301

== ENCOUNTER → 2021-01-14 12:40 | Outpatient (CLI) | payer MEDICARE, OTHER, SELFPAY ==
[2021-01-14] MEDS: COVID-19 VACC #2, MRNA(MOD) 100 MCG/0.5 ML VIAL IM (12:50)
== END ==
PROVIDERS: PCP Internal Medicine; Visit Provider Internal Medicine
DX: Z23 Encounter for immunization (principal)
CPT/HCPCS: 0012A; 91301

== ENCOUNTER → 2021-01-27 07:13 | Outpatient (CLI) | payer MEDICARE, OTHER, SELFPAY ==
[2021-01-27 08:26] LABS: Alanine Aminotransferase 17 IU/L (<50); Albumin 4.2 g/dL (3.5-5.0); Albumin Globulin Ratio 1.4 (1.0-2.8); Alkaline Phosphatase 46 U/L (38-126); Aspartate Aminotransferase 36 IU/L (17-59); BUN Creatinine Ratio 29.5 (6-22); Bilirubin Total 0.5 mg/dL (0.2-1.3); Bilirubin Unconjugated 0.5 mg/dL (0.0-1.1); Blood Urea Nitrogen 31 mg/dL (9-20); Calcium 9.5 mg/dL (8.4-10.2); Carbon Dioxide 30 mmol/L (22-32); Chloride 103 mmol/L (98-107); Cholesterol 175 mg/dL (140-199); Estimated Glomerular Filt Rate > 60.0 mL/min (>60); Globulin 3.1 g/dL (1.7-4.1); Glucose 87 mg/dL (80-110); HDL Cholesterol 45 mg/dL (40-60); HEMOLYSIS < 15 (0-50); LDL Cholesterol Calculated 109 mg/dL (<100); Sodium 138 mmol/L (137-145); Total Protein 7.3 g/dL (6.3-8.2); Triglycerides 106 mg/dL (35-150)
[2021-01-27 08:55] LABS: TSH w/ Reflex to FT4 0.07 uIU/mL (0.47-4.68)
[2021-01-27 09:23] LABS: Free T4, Direct Thyroxine 1.29 ng/dL (0.78-2.19)
== END ==
PROVIDERS: PCP Internal Medicine; Referring Provider Internal Medicine Cardiovascular Disease; Visit Provider Internal Medicine
DX: I10 Essential (primary) hypertension (principal); E03.9 Hypothyroidism, unspecified; E78.5 Hyperlipidemia, unspecified; I42.9 Cardiomyopathy, unspecified
CPT/HCPCS: 36415; 80048; 80061; 80076; 84439; 84443

== ENCOUNTER → 2021-04-16 06:58 | Outpatient (CLI) | payer MEDICARE, OTHER, SELFPAY ==
[2021-04-16 08:07] LABS: Blood Urea Nitrogen 32 mg/dL (9-20); Calcium 9.7 mg/dL (8.4-10.2); Carbon Dioxide 30 mmol/L (22-32); Chloride 103 mmol/L (98-107); Estimated Glomerular Filt Rate > 60.0 mL/min (>60); Glucose 84 mg/dL (80-110); HEMOLYSIS < 15 (0-50); Potassium 4.6 mmol/L (3.4-5.1); Sodium 138 mmol/L (137-145)
[2021-04-16 08:24] LABS: Prolactin 28.1 ng/mL (3.7-17.9)
[2021-04-16 08:35] LABS: Follicle Stimulating Hormone 2.68 mIU/mL; Free T4, Direct Thyroxine 1.21 ng/dL (0.78-2.19); Luteinizing Hormone 1.58 mIU/mL
[2021-04-16 08:37] LABS: Cortisol Random 15.4 ug/dL
[2021-04-16 08:41] LABS: Testosterone 79.3 ng/dL (71.8-623)
[2021-04-16 08:49] LABS: Thyroid Stimulating Hormone 0.343 uIU/mL (0.47-4.68)
[2021-04-20 12:33] LABS: IGF-1 46 ng/mL (40-194)
== END ==
PROVIDERS: PCP Internal Medicine; Referring Provider Neurological Surgery; Visit Provider Neurological Surgery
DX: D49.7 Neoplasm of unspecified behavior of endocrine glands and other parts of nervous system (principal)
CPT/HCPCS: 36415; 80048; 82533; 83001; 83002; 84146; 84305; 84403; 84439; 84443

== ENCOUNTER → 2021-07-02 14:13 | Outpatient (CLI) | payer MEDICARE, OTHER, SELFPAY ==
[2021-07-02 15:41] LABS: Add Manual Diff / Slide Review NO; Basophils Absolute Auto 0 /uL (0-100); Basophils Percent Auto 0.4 % (0-2); Eosinophils Absolute Auto 200 /uL (0-450); Eosinophils Percent Auto 2.3 % (2-4); Hematocrit 34.5 % (41-53); Hemoglobin 11.5 g/dL (13.5-17.5); Lymphocytes Absolute Auto 2200 /uL (1100-4500); Mean Corpuscular HGB Conc 33.5 % (30-36); Mean Corpuscular Hemoglobin 32.8 PG (26-34); Monocytes Absolute Auto 400 /uL (0-900); Monocytes Percent Auto 6.2 % (3-14); Neutrophils Absolute Auto 4200 /uL (1500-7000); Neutrophils Percent Auto 60.1 % (50-75); Platelet Count 292 X10^3/uL (150-400); Red Blood Cell Count 3.52 X10^6/uL (4.5-5.9); Red Cell Distribution Width 14.3 % (11.6-14.8)
[2021-07-02 15:55] LABS: BUN Creatinine Ratio 34.7 (6-22); Blood Urea Nitrogen 34 mg/dL (9-20); Calcium 9.5 mg/dL (8.4-10.2); Carbon Dioxide 27 mmol/L (22-32); Chloride 103 mmol/L (98-107); Estimated Glomerular Filt Rate > 60.0 mL/min (>60); Glucose 95 mg/dL (80-110); HEMOLYSIS < 15 (0-50); Potassium 4.5 mmol/L (3.4-5.1); Sodium 136 mmol/L (137-145)
== END ==
PROVIDERS: PCP Internal Medicine; Referring Provider Physician Assistant; Visit Provider Physician Assistant
DX: Z01.818 Encounter for other preprocedural examination (principal); R68.89 Other general symptoms and signs
CPT/HCPCS: 36415; 80048; 85025; 93005

== ENCOUNTER → 2021-09-06 08:13 | Outpatient (CLI) | payer MEDICARE, OTHER, SELFPAY ==
[2021-09-06 11:41] LABS: COVID-19 CEPHEID PCR (VTM/NP) Negative (Negative)
== END ==
PROVIDERS: PCP Internal Medicine; Visit Provider Physician Assistant
DX: Z20.822 Contact with and (suspected) exposure to COVID-19 (principal)
CPT/HCPCS: C9803; U0003

== ENCOUNTER 2021-09-30 14:30 | Outpatient (RCR) | payer MEDICARE, OTHER, SELFPAY ==
--- NOTE | 2021-09-10 15:29 | PT.OIE ---
Current Diagnoses Stiffness of right knee, not elsewhere classified (09/10/21) Muscle weakness (generalized) (09/10/21) Presence of right artificial knee joint (09/10/21) Past Medical History (Last Updated 12/08/19 @ 18:54 by INDY Henson) Fatigue History of total left knee replacement (TKR) Obstructive sleep apnea Pacemaker Restless legs syndrome (RLS) Snoring Past Surgical History (Last Updated 12/08/19 @ 18:50 by INDY Henson) History of total left knee replacement (TKR) Visit Care Team Role Provider Type Marino Gallegos MD Primary Care Provider Physician Specialty: Internal Medicine Address: [address] [place] [address], [facility] Email: [email or web address] Dar Suazo MD Attending Provider Non-Staff Referring Provider Specialty: Orthopedics Address: [address] [place] [address], [facility] Email: Physical Therapy Initial Evaluation PT-OP-A Visit Information Start: 09/10/21 15:09 Freq: Status: Active Protocol: Document 09/10/21 13:45 DCW (Rec: 09/10/21 15:28 DCW [id number]) Out-Patient Physical Therapy Visit Information Visit Information Visit Type Initial Evaluation Visit Start Time 13:45 Visit Stop Time 14:20 Total Visit Minutes 35 Visit Number 1 Number of MACHINE TRACER Visits 0 Evaluation Information Evaluation Date 09/10/21 PT-OP-B Current Condition Start: 09/10/21 15:09 Freq: Status: Active Protocol: Document 09/10/21 13:45 DCW (Rec: 09/10/21 15:28 DCW [id number]) Current Condition History of Current Condition Onset Date 09/07/21 Current Complaints s/p R TKA History of Current Condition Pt is an 85 year old male presenting three day s/p R TKA . Pt reports he is having minimal pain, at most 4/10, and is walking well with his FWW. Pt notes he has been performing his post-op HEP regularly since getting home. Pt has no real concerns, feels his left leg has gotten weak after prior rehab at this facility last year following a TKA in November 2019, and then a fractured patella following a fall in April 2020. Notes he has not been able to exercise his left knee due to right knee pain, but is now looking forward to getting both legs stronger. PT-OP-C Subjective Start: 09/10/21 15:09 Freq: Status: Active Protocol: Document 09/10/21 13:45 DCW (Rec: 09/10/21 15:28 DCW [id number]) OP-PT Subjective Patient Comments Patient Comments I actually think I'm doing pretty good for just waking up in the recovery room 72 hours ago. Patient Reported Progress Improving PT-OP-E Functional Tests Start: 09/10/21 15:09 Freq: Status: Active Protocol: Document 09/10/21 13:45 DCW (Rec: 09/10/21 15:28 DCW [id number]) Functional Tests 6 Minute Walk Test Distance 1030' Device Used FWW Comments 2.86 ft/sec PT-OP-J Posture/Palpation/Skin Start: 09/10/21 15:09 Freq: Status: Active Protocol: Document 09/10/21 13:45 DCW (Rec: 09/10/21 15:28 DCW [id number]) Skin Assessment Circumference Measurement 3 Location 10 cm superior to R joint line Measurement (Centimeters) 49.4 Comments L = 39.5 2 Location R joint line Measurement (Centimeters) 47.5 Comments L = 40.6 1 Location 10 cm inferior to R joint line Measurement (Centimeters) 41.9 Comments L = 36.6 PT-OP-K Range of Motion Start: 09/10/21 15:09 Freq: Status: Active Protocol: Document 09/10/21 13:45 DCW (Rec: 09/10/21 15:28 DCW [id number]) Knee Goniometric Range of Motion Knee Right Patient Position Supine Flexion Active (degrees) 96 Extension Active (degrees) 8 Left Patient Position Supine Flexion Active (degrees) 124 Extension Active (degrees) 2 PT-OP-M Strength Start: 09/10/21 15:09 Freq: Status: Active Protocol: Document 09/10/21 13:45 DCW (Rec: 09/10/21 15:28 DCW [id number]) Knee Strength Knee Manual Muscle Testing Left Flexion (S2) 4+ Good+ Extension (L3) 4 Good Right Flexion (S2) 4- Good- Extension (L3) 4- Good- PT-OP-Q Treatments Start: 09/10/21 15:09 Freq: Status: Active Protocol: Document 09/10/21 13:45 DCW (Rec: 09/10/21 15:28 DCW [id number]) Cardio Equipment Recumbent Bicycle Duration (Minutes) 6 Resistance 0 Seat Position 4 Therapeutic Exercises Sitting Exercises 1 Sitting Exercise Name Ankle pumps Side bilateral PT-OP-T Assessment and Plan Start: 09/10/21 15:09 Freq: Status: Active Protocol: Document 09/10/21 13:45 DCW (Rec: 09/10/21 15:28 DCW [id number]) Physical Therapy Assessment Rehab Potential Rehabilitation Potential Excellent Evaluation Complexity Number of Personal Factors/Comorbidities 1-2 Number of Body Systems Impaired 1-2 Clinical Presentation at Evaluation Stable Impairments Impairments Edema,Functional Activities, Functional Mobility,Gait, Integument,Pain,ROM,Soft Tissue Mobility,Strength Goals Three Impairment Pt requires FWW during gait for safety and stability Foreign Service Teacher Goal (LTG) Pt to demonstrate ability to ambulate at least 800' without an assistive device during a 6MWT to display independence and safety with community ambulation LTG Duration 11/10/21 Two Impairment Pt presents with limited right knee ROM Custodial Goal (LTG) Increase right knee ROM to 0- 120? to improve ability to ascend/descend steps LTG Duration 11/10/21 One Impairment Pt does not have an appropriate home exercise program Short Term Goal (STG) Pt to be independent and compliant with an appropriate HEP STG Duration 10/11/21 Assessment Summary Assessment Pt presents better than expected only three days s/p R TKA. Pt has already undergone L TKA in November of 2019, and did very well with recovery on that, until a fall resulting in a patella fracture. Pt demonstrates good knowledge of his functional limitations, and appears safe with his mobility. Pt presents with joint effusion, knee weakness, limited ROM, and increased reliance on his FWW during gait. Pt should benefit from skilled therapy focusing on improving mobility and strength to increase independence and return to prior level of function. Physical Therapy Plan Frequency and Duration Frequency of Treatment 2x/Week Duration of Treatment Two months Plan of Care Start Date 09/10/21 Plan of Care End Date 11/10/21 Therapeutic Interventions Therapeutic Interventions Aquatic Therapy,Gait Training, Home Exercise Program,Joint Mobilizations,Manual Therapy, Neuromuscular Re-education, Patient/Caregiver Education, Self-Care/Home Management,Soft Tissue Mobilization, Therapeutic Activities, Therapeutic Exercises Modalities Cold Pack/Ice Massage,Electric Stimulation,Hot Packs Next Visit Focus/Plan Next Note Type Treatment Note Next Visit Plan Knee ROM, strengthening, pain- control modalities as needed
--- NOTE | 2021-09-10 15:29 | PT.OPPOC ---
Physical, Occupational & Speech Therapy At [facility] Current Diagnoses Stiffness of right knee, not elsewhere classified (09/10/21) Muscle weakness (generalized) (09/10/21) Presence of right artificial knee joint (09/10/21) Visit Care Team Role Provider Type Marino Gallegos MD Primary Care Provider Physician Specialty: Internal Medicine Address: [address] [place] [address], [id number] Email: [email or web address] Dar Suazo MD Attending Provider Non-Staff Referring Provider Specialty: Orthopedics Address: [address] [place] [address], [id number] Email: Plan Of Care PT-OP-T Assessment and Plan Start: 09/10/21 15:09 Freq: Status: Active Protocol: Document 09/10/21 13:45 DCW (Rec: 09/10/21 15:28 DCW [id number]) Physical Therapy Assessment Rehab Potential Rehabilitation Potential Excellent Evaluation Complexity Number of Personal Factors/Comorbidities 1-2 Number of Body Systems Impaired 1-2 Clinical Presentation at Evaluation Stable Impairments Impairments Edema,Functional Activities, Functional Mobility,Gait, Integument,Pain,ROM,Soft Tissue Mobility,Strength Goals Three Impairment Pt requires FWW during gait for safety and stability Iron Miner Goal (LTG) Pt to demonstrate ability to ambulate at least 800' without an assistive device during a 6MWT to display independence and safety with community ambulation LTG Duration 11/10/21 Two Impairment Pt presents with limited right knee ROM Alf Goal (LTG) Increase right knee ROM to 0- 120? to improve ability to ascend/descend steps LTG Duration 11/10/21 One Impairment Pt does not have an appropriate home exercise program Short Term Goal (STG) Pt to be independent and compliant with an appropriate HEP STG Duration 10/11/21 Assessment Summary Assessment Pt presents better than expected only three days s/p R TKA. Pt has already undergone L TKA in November of 2019, and did very well with recovery on that, until a fall resulting in a patella fracture. Pt demonstrates good knowledge of his functional limitations, and appears safe with his mobility. Pt presents with joint effusion, knee weakness, limited ROM, and increased reliance on his FWW during gait. Pt should benefit from skilled therapy focusing on improving mobility and strength to increase independence and return to prior level of function. Physical Therapy Plan Frequency and Duration Frequency of Treatment 2x/Week Duration of Treatment Two months Plan of Care Start Date 09/10/21 Plan of Care End Date 11/10/21 Therapeutic Interventions Therapeutic Interventions Aquatic Therapy,Gait Training, Home Exercise Program,Joint Mobilizations,Manual Therapy, Neuromuscular Re-education, Patient/Caregiver Education, Self-Care/Home Management,Soft Tissue Mobilization, Therapeutic Activities, Therapeutic Exercises Modalities Cold Pack/Ice Massage,Electric Stimulation,Hot Packs Next Visit Focus/Plan Next Note Type Treatment Note Next Visit Plan Knee ROM, strengthening, pain- control modalities as needed Plan of Care Dates Plan of Care Start Date 09/10/21 Plan of Care End Date 11/10/21 Electronically Signed by: Kahlil Patel, PT 09/10/21 [id number] Please Sign and Return: I have reviewed this Plan of Care and certify that the skilled therapy services above are required to meet the patient?s needs. Physician Signature Date Printed Name and Credentials Clinical Instructor Signature Printed Name and Credentials
--- NOTE | 2021-09-13 15:24 | PT.OTN ---
Current Diagnoses Stiffness of right knee, not elsewhere classified (09/13/21) Muscle weakness (generalized) (09/13/21) Presence of right artificial knee joint (09/13/21) Physical Therapy Treatment Note PT-OP-A Visit Information Start: 09/10/21 15:09 Freq: Status: Active Protocol: Document 09/13/21 14:30 DCW (Rec: 09/13/21 15:24 DCW [id number]) Out-Patient Physical Therapy Visit Information Visit Information Visit Type Treatment Note Visit Start Time 14:30 Visit Stop Time 15:20 Total Visit Minutes 50 Visit Number 2 Number of BATH ATTENDANT Visits 0 Evaluation Information Evaluation Date 09/10/21 PT-OP-B Current Condition Start: 09/10/21 15:09 Freq: Status: Active Protocol: Document 09/10/21 13:45 DCW (Rec: 09/10/21 15:28 DCW [id number]) Current Condition History of Current Condition Onset Date 09/07/21 Current Complaints s/p R TKA History of Current Condition Pt is an 85 year old male presenting three day s/p R TKA . Pt reports he is having minimal pain, at most 4/10, and is walking well with his FWW. Pt notes he has been performing his post-op HEP regularly since getting home. Pt has no real concerns, feels his left leg has gotten weak after prior rehab at this facility last year following a TKA in November 2019, and then a fractured patella following a fall in April 2020. Notes he has not been able to exercise his left knee due to right knee pain, but is now looking forward to getting both legs stronger. PT-OP-C Subjective Start: 09/10/21 15:09 Freq: Status: Active Protocol: Document 09/13/21 14:30 DCW (Rec: 09/13/21 15:24 DCW [id number]) OP-PT Subjective Patient Comments Patient Comments It had been getting more and more sore, all the drugs from surgery have been wearing off, but it seems to be a bit better today, or I probably would have called out sick. PT-OP-E Functional Tests Start: 09/10/21 15:09 Freq: Status: Active Protocol: Document 09/10/21 13:45 DCW (Rec: 09/10/21 15:28 DCW [id number]) Functional Tests 6 Minute Walk Test Distance 1030' Device Used FWW Comments 2.86 ft/sec PT-OP-J Posture/Palpation/Skin Start: 09/10/21 15:09 Freq: Status: Active Protocol: Document 09/10/21 13:45 DCW (Rec: 09/10/21 15:28 DCW [id number]) Skin Assessment Circumference Measurement 3 Location 10 cm superior to R joint line Measurement (Centimeters) 49.4 Comments L = 39.5 2 Location R joint line Measurement (Centimeters) 47.5 Comments L = 40.6 1 Location 10 cm inferior to R joint line Measurement (Centimeters) 41.9 Comments L = 36.6 PT-OP-K Range of Motion Start: 09/10/21 15:09 Freq: Status: Active Protocol: Document 09/10/21 13:45 DCW (Rec: 09/10/21 15:28 DCW [id number]) Knee Goniometric Range of Motion Knee Right Patient Position Supine Flexion Active (degrees) 96 Extension Active (degrees) 8 Left Patient Position Supine Flexion Active (degrees) 124 Extension Active (degrees) 2 PT-OP-M Strength Start: 09/10/21 15:09 Freq: Status: Active Protocol: Document 09/10/21 13:45 DCW (Rec: 09/10/21 15:28 DCW [id number]) Knee Strength Knee Manual Muscle Testing Left Flexion (S2) 4+ Good+ Extension (L3) 4 Good Right Flexion (S2) 4- Good- Extension (L3) 4- Good- PT-OP-Q Treatments Start: 09/10/21 15:09 Freq: Status: Active Protocol: Document 09/13/21 14:30 DCW (Rec: 09/13/21 15:24 DCW [id number]) Cardio Equipment Recumbent Bicycle Duration (Minutes) 6 Resistance 0 Seat Position 4 Other a few full rotations both directions Gym Equipment Shuttle Recovery Bilateral Squats Resistance 75# Reps/Time Pause at max flexion Therapeutic Exercises Supine Exercises 3 Supine Exercise Name Extension stretch Side right 2 Supine Exercise Name Knee flexion /c strap Side right Equipment Used Blue 45 cm T-ball 1 Supine Exercise Name SAQ Side bilateral Resistance 4# Sitting Exercises 2 Sitting Exercise Name LAQ Side right Resistance 4# Standing Exercises 3 Standing Exercise Name Step-ups Side right Equipment Used 6 step 2 Standing Exercise Name Step flexion stretch Side right Equipment Used 6 step Reps/Minutes 10 hold 1 Standing Exercise Name TKE Side right Resistance Lv 1 PT-OP-R Modalities Start: 09/10/21 15:09 Freq: Status: Active Protocol: Document 09/13/21 14:30 DCW (Rec: 09/13/21 15:24 DCW [id number]) Hot Pack/Cold Pack Treatment Cold Pack Location R Knee Patient Position Hooklying Treatment Duration (minutes) 10 PT-OP-T Assessment and Plan Start: 09/10/21 15:09 Freq: Status: Active Protocol: Document 09/13/21 14:30 DCW (Rec: 09/13/21 15:24 DCW [id number]) Physical Therapy Assessment Impairments Impairments Edema,Functional Activities, Functional Mobility,Gait, Integument,Pain,ROM,Soft Tissue Mobility,Strength Goals Three Impairment Pt requires FWW during gait for safety and stability Hand Rigger Goal (LTG) Pt to demonstrate ability to ambulate at least 800' without an assistive device during a 6MWT to display independence and safety with community ambulation LTG Duration 11/10/21 Two Impairment Pt presents with limited right knee ROM Hand Rigger Goal (LTG) Increase right knee ROM to 0- 120? to improve ability to ascend/descend steps LTG Duration 11/10/21 One Impairment Pt does not have an appropriate home exercise program Short Term Goal (STG) Pt to be independent and compliant with an appropriate HEP STG Duration 10/11/21 Assessment Summary Assessment Pt tolerating treatment well today, noted some soreness with forced flexion, but did well overall with strength and mobility. Physical Therapy Plan Frequency and Duration Frequency of Treatment 2x/Week Duration of Treatment Two months Plan of Care Start Date 09/10/21 Plan of Care End Date 11/10/21 Therapeutic Interventions Therapeutic Interventions Aquatic Therapy,Gait Training, Home Exercise Program,Joint Mobilizations,Manual Therapy, Neuromuscular Re-education, Patient/Caregiver Education, Self-Care/Home Management,Soft Tissue Mobilization, Therapeutic Activities, Therapeutic Exercises Modalities Cold Pack/Ice Massage,Electric Stimulation,Hot Packs Next Visit Focus/Plan Next Note Type Treatment Note Next Visit Plan Knee ROM, strengthening, pain- control modalities as needed
--- NOTE | 2021-09-16 15:14 | PT.OTN ---
Current Diagnoses Stiffness of right knee, not elsewhere classified (09/16/21) Muscle weakness (generalized) (09/16/21) Presence of right artificial knee joint (09/16/21) Physical Therapy Treatment Note PT-OP-A Visit Information Start: 09/10/21 15:09 Freq: Status: Active Protocol: Document 09/16/21 14:30 DCW (Rec: 09/16/21 15:14 DCW [id number]) Out-Patient Physical Therapy Visit Information Visit Information Visit Type Treatment Note Visit Start Time 14:30 Visit Stop Time 15:15 Total Visit Minutes 45 Visit Number 3 Number of ASSOCIATE PARTNER Visits 0 Evaluation Information Evaluation Date 09/10/21 PT-OP-B Current Condition Start: 09/10/21 15:09 Freq: Status: Active Protocol: Document 09/10/21 13:45 DCW (Rec: 09/10/21 15:28 DCW [id number]) Current Condition History of Current Condition Onset Date 09/07/21 Current Complaints s/p R TKA History of Current Condition Pt is an 85 year old male presenting three day s/p R TKA . Pt reports he is having minimal pain, at most 4/10, and is walking well with his FWW. Pt notes he has been performing his post-op HEP regularly since getting home. Pt has no real concerns, feels his left leg has gotten weak after prior rehab at this facility last year following a TKA in November 2019, and then a fractured patella following a fall in April 2020. Notes he has not been able to exercise his left knee due to right knee pain, but is now looking forward to getting both legs stronger. PT-OP-C Subjective Start: 09/10/21 15:09 Freq: Status: Active Protocol: Document 09/16/21 14:30 DCW (Rec: 09/16/21 15:14 DCW [id number]) OP-PT Subjective Patient Comments Patient Comments Pt comes in today without any assistive device, states well I'm nine days out from surgery, I better be walking normally. PT-OP-E Functional Tests Start: 09/10/21 15:09 Freq: Status: Active Protocol: Document 09/10/21 13:45 DCW (Rec: 09/10/21 15:28 DCW [id number]) Functional Tests 6 Minute Walk Test Distance 1030' Device Used FWW Comments 2.86 ft/sec PT-OP-J Posture/Palpation/Skin Start: 09/10/21 15:09 Freq: Status: Active Protocol: Document 09/10/21 13:45 DCW (Rec: 09/10/21 15:28 DCW [id number]) Skin Assessment Circumference Measurement 3 Location 10 cm superior to R joint line Measurement (Centimeters) 49.4 Comments L = 39.5 2 Location R joint line Measurement (Centimeters) 47.5 Comments L = 40.6 1 Location 10 cm inferior to R joint line Measurement (Centimeters) 41.9 Comments L = 36.6 PT-OP-K Range of Motion Start: 09/10/21 15:09 Freq: Status: Active Protocol: Document 09/10/21 13:45 DCW (Rec: 09/10/21 15:28 DCW [id number]) Knee Goniometric Range of Motion Knee Right Patient Position Supine Flexion Active (degrees) 96 Extension Active (degrees) 8 Left Patient Position Supine Flexion Active (degrees) 124 Extension Active (degrees) 2 PT-OP-M Strength Start: 09/10/21 15:09 Freq: Status: Active Protocol: Document 09/10/21 13:45 DCW (Rec: 09/10/21 15:28 DCW [id number]) Knee Strength Knee Manual Muscle Testing Left Flexion (S2) 4+ Good+ Extension (L3) 4 Good Right Flexion (S2) 4- Good- Extension (L3) 4- Good- PT-OP-Q Treatments Start: 09/10/21 15:09 Freq: Status: Active Protocol: Document 09/16/21 14:30 DCW (Rec: 09/16/21 15:14 DCW [id number]) Cardio Equipment Recumbent Bicycle Duration (Minutes) 6 Resistance 0 Seat Position 4 Other a few full rotations both directions Gym Equipment Shuttle Recovery Unilateral Squats Resistance 37# Bilateral Squats Resistance 100# Reps/Time Pause at max flexion Therapeutic Exercises Supine Exercises 4 Supine Exercise Name SLR Side bilateral Resistance 5# 3 Supine Exercise Name Extension stretch Side right 2 Supine Exercise Name Knee flexion /c strap Side right Equipment Used Blue 45 cm T-ball 1 Supine Exercise Name SAQ Side bilateral Resistance 5# Sitting Exercises 2 Sitting Exercise Name LAQ Side right Resistance 5# Standing Exercises 4 Standing Exercise Name Hip Extension Side bilateral Resistance Yellow Equipment Used T-band 2 Standing Exercise Name Step flexion stretch Side right Equipment Used 6 step Reps/Minutes 10 hold 1 Standing Exercise Name TKE Side bilateral Resistance Lv 2 Other Exercises 1 Other Exercise Name Resisted Side-stepping PT-OP-R Modalities Start: 09/10/21 15:09 Freq: Status: Active Protocol: Document 09/13/21 14:30 DCW (Rec: 09/13/21 15:24 DCW [id number]) Hot Pack/Cold Pack Treatment Cold Pack Location R Knee Patient Position Hooklying Treatment Duration (minutes) 10 PT-OP-T Assessment and Plan Start: 09/10/21 15:09 Freq: Status: Active Protocol: Document 09/16/21 14:30 DCW (Rec: 09/16/21 15:14 DCW [id number]) Physical Therapy Assessment Impairments Impairments Edema,Functional Activities, Functional Mobility,Gait, Integument,Pain,ROM,Soft Tissue Mobility,Strength Goals Three Impairment Pt requires FWW during gait for safety and stability Music Adapter Goal (LTG) Pt to demonstrate ability to ambulate at least 800' without an assistive device during a 6MWT to display independence and safety with community ambulation LTG Duration 11/10/21 Two Impairment Pt presents with limited right knee ROM Senior Living Goal (LTG) Increase right knee ROM to 0- 120? to improve ability to ascend/descend steps LTG Duration 11/10/21 One Impairment Pt does not have an appropriate home exercise program Short Term Goal (STG) Pt to be independent and compliant with an appropriate HEP STG Duration 10/11/21 Assessment Summary Assessment Pt making significant post-op progress so far, PROM improved to 110 degrees flexion, doing well with gait even after stopping use of AD. Physical Therapy Plan Frequency and Duration Frequency of Treatment 2x/Week Duration of Treatment Two months Plan of Care Start Date 09/10/21 Plan of Care End Date 11/10/21 Therapeutic Interventions Therapeutic Interventions Aquatic Therapy,Gait Training, Home Exercise Program,Joint Mobilizations,Manual Therapy, Neuromuscular Re-education, Patient/Caregiver Education, Self-Care/Home Management,Soft Tissue Mobilization, Therapeutic Activities, Therapeutic Exercises Modalities Cold Pack/Ice Massage,Electric Stimulation,Hot Packs Next Visit Focus/Plan Next Note Type Treatment Note Next Visit Plan Knee ROM, strengthening, pain- control modalities as needed
--- NOTE | 2021-09-20 14:27 | PT.OTN ---
Current Diagnoses Stiffness of right knee, not elsewhere classified (09/20/21) Muscle weakness (generalized) (09/20/21) Presence of right artificial knee joint (09/20/21) Physical Therapy Treatment Note PT-OP-A Visit Information Start: 09/10/21 15:09 Freq: Status: Active Protocol: Document 09/20/21 13:45 DCW (Rec: 09/20/21 14:27 DCW [id number]) Out-Patient Physical Therapy Visit Information Visit Information Visit Type Treatment Note Visit Start Time 13:45 Visit Stop Time 14:30 Total Visit Minutes 45 Visit Number 4 Number of VEHICLE DETAILER Visits 0 Evaluation Information Evaluation Date 09/10/21 PT-OP-B Current Condition Start: 09/10/21 15:09 Freq: Status: Active Protocol: Document 09/10/21 13:45 DCW (Rec: 09/10/21 15:28 DCW [id number]) Current Condition History of Current Condition Onset Date 09/07/21 Current Complaints s/p R TKA History of Current Condition Pt is an 85 year old male presenting three day s/p R TKA . Pt reports he is having minimal pain, at most 4/10, and is walking well with his FWW. Pt notes he has been performing his post-op HEP regularly since getting home. Pt has no real concerns, feels his left leg has gotten weak after prior rehab at this facility last year following a TKA in November 2019, and then a fractured patella following a fall in April 2020. Notes he has not been able to exercise his left knee due to right knee pain, but is now looking forward to getting both legs stronger. PT-OP-C Subjective Start: 09/10/21 15:09 Freq: Status: Active Protocol: Document 09/20/21 13:45 DCW (Rec: 09/20/21 14:27 DCW [id number]) OP-PT Subjective Patient Comments Patient Comments I'm alright. I kind of had a rough weekend, everything way just kind of sore. PT-OP-E Functional Tests Start: 09/10/21 15:09 Freq: Status: Active Protocol: Document 09/10/21 13:45 DCW (Rec: 09/10/21 15:28 DCW [id number]) Functional Tests 6 Minute Walk Test Distance 1030' Device Used FWW Comments 2.86 ft/sec PT-OP-J Posture/Palpation/Skin Start: 09/10/21 15:09 Freq: Status: Active Protocol: Document 09/10/21 13:45 DCW (Rec: 09/10/21 15:28 DCW [id number]) Skin Assessment Circumference Measurement 3 Location 10 cm superior to R joint line Measurement (Centimeters) 49.4 Comments L = 39.5 2 Location R joint line Measurement (Centimeters) 47.5 Comments L = 40.6 1 Location 10 cm inferior to R joint line Measurement (Centimeters) 41.9 Comments L = 36.6 PT-OP-K Range of Motion Start: 09/10/21 15:09 Freq: Status: Active Protocol: Document 09/10/21 13:45 DCW (Rec: 09/10/21 15:28 DCW [id number]) Knee Goniometric Range of Motion Knee Right Patient Position Supine Flexion Active (degrees) 96 Extension Active (degrees) 8 Left Patient Position Supine Flexion Active (degrees) 124 Extension Active (degrees) 2 PT-OP-M Strength Start: 09/10/21 15:09 Freq: Status: Active Protocol: Document 09/10/21 13:45 DCW (Rec: 09/10/21 15:28 DCW [id number]) Knee Strength Knee Manual Muscle Testing Left Flexion (S2) 4+ Good+ Extension (L3) 4 Good Right Flexion (S2) 4- Good- Extension (L3) 4- Good- PT-OP-Q Treatments Start: 09/10/21 15:09 Freq: Status: Active Protocol: Document 09/20/21 13:45 DCW (Rec: 09/20/21 14:27 DCW [id number]) Cardio Equipment Recumbent Bicycle Duration (Minutes) 6 Resistance 0 Seat Position 4 Other full rotations both directions Gym Equipment Shuttle Recovery Unilateral Squats Resistance 37# Bilateral Squats Resistance 100# Reps/Time Pause at max flexion Therapeutic Exercises Supine Exercises 4 Supine Exercise Name SLR Side bilateral Resistance 5# 3 Supine Exercise Name Extension stretch Side right 2 Supine Exercise Name Knee flexion /c strap Side right Equipment Used Blue 45 cm T-ball 1 Supine Exercise Name SAQ Side bilateral Resistance 5# Sitting Exercises 2 Sitting Exercise Name LAQ Side right Resistance 5# Standing Exercises 4 Standing Exercise Name Hip Extension Side bilateral Resistance Yellow Equipment Used T-band 1 Standing Exercise Name TKE Side bilateral Resistance Lv 2 Other Exercises 1 Other Exercise Name Resisted Side-stepping Resistance Yellow Equipment Used T-band PT-OP-R Modalities Start: 09/10/21 15:09 Freq: Status: Active Protocol: Document 09/13/21 14:30 DCW (Rec: 09/13/21 15:24 DCW [id number]) Hot Pack/Cold Pack Treatment Cold Pack Location R Knee Patient Position Hooklying Treatment Duration (minutes) 10 PT-OP-T Assessment and Plan Start: 09/10/21 15:09 Freq: Status: Active Protocol: Document 09/20/21 13:45 DCW (Rec: 09/20/21 14:27 DCW [id number]) Physical Therapy Assessment Impairments Impairments Edema,Functional Activities, Functional Mobility,Gait, Integument,Pain,ROM,Soft Tissue Mobility,Strength Goals Three Impairment Pt requires FWW during gait for safety and stability Vending Machine Attendant Goal (LTG) Pt to demonstrate ability to ambulate at least 800' without an assistive device during a 6MWT to display independence and safety with community ambulation LTG Duration 11/10/21 Two Impairment Pt presents with limited right knee ROM Vending Machine Attendant Goal (LTG) Increase right knee ROM to 0- 120? to improve ability to ascend/descend steps LTG Duration 11/10/21 One Impairment Pt does not have an appropriate home exercise program Short Term Goal (STG) Pt to be independent and compliant with an appropriate HEP STG Duration 10/11/21 Assessment Summary Assessment Pt continues to improve, great ambulation today, improving ROM. Still clear weakness/ atrophy with bilateral quads. Physical Therapy Plan Frequency and Duration Frequency of Treatment 2x/Week Duration of Treatment Two months Plan of Care Start Date 09/10/21 Plan of Care End Date 11/10/21 Therapeutic Interventions Therapeutic Interventions Aquatic Therapy,Gait Training, Home Exercise Program,Joint Mobilizations,Manual Therapy, Neuromuscular Re-education, Patient/Caregiver Education, Self-Care/Home Management,Soft Tissue Mobilization, Therapeutic Activities, Therapeutic Exercises Modalities Cold Pack/Ice Massage,Electric Stimulation,Hot Packs Next Visit Focus/Plan Next Note Type Treatment Note Next Visit Plan Knee ROM, strengthening, pain- control modalities as needed
--- NOTE | 2021-09-23 15:17 | PT.OTN ---
Current Diagnoses Stiffness of right knee, not elsewhere classified (09/23/21) Muscle weakness (generalized) (09/23/21) Presence of right artificial knee joint (09/23/21) Physical Therapy Treatment Note PT-OP-A Visit Information Start: 09/10/21 15:09 Freq: Status: Active Protocol: Document 09/23/21 14:30 DCW (Rec: 09/23/21 15:16 DCW [id number]) Out-Patient Physical Therapy Visit Information Visit Information Visit Type Treatment Note Visit Start Time 14:30 Visit Stop Time 15:15 Total Visit Minutes 45 Visit Number 5 Number of SPRING MAKER Visits 0 Evaluation Information Evaluation Date 09/10/21 PT-OP-B Current Condition Start: 09/10/21 15:09 Freq: Status: Active Protocol: Document 09/10/21 13:45 DCW (Rec: 09/10/21 15:28 DCW [id number]) Current Condition History of Current Condition Onset Date 09/07/21 Current Complaints s/p R TKA History of Current Condition Pt is an 85 year old male presenting three day s/p R TKA . Pt reports he is having minimal pain, at most 4/10, and is walking well with his FWW. Pt notes he has been performing his post-op HEP regularly since getting home. Pt has no real concerns, feels his left leg has gotten weak after prior rehab at this facility last year following a TKA in November 2019, and then a fractured patella following a fall in April 2020. Notes he has not been able to exercise his left knee due to right knee pain, but is now looking forward to getting both legs stronger. PT-OP-C Subjective Start: 09/10/21 15:09 Freq: Status: Active Protocol: Document 09/23/21 14:30 DCW (Rec: 09/23/21 15:16 DCW [id number]) OP-PT Subjective Patient Comments Patient Comments Pt walking with improved gait pattern, notes minimal discomfort with gait. PT-OP-E Functional Tests Start: 09/10/21 15:09 Freq: Status: Active Protocol: Document 09/10/21 13:45 DCW (Rec: 09/10/21 15:28 DCW [id number]) Functional Tests 6 Minute Walk Test Distance 1030' Device Used FWW Comments 2.86 ft/sec PT-OP-J Posture/Palpation/Skin Start: 09/10/21 15:09 Freq: Status: Active Protocol: Document 09/10/21 13:45 DCW (Rec: 09/10/21 15:28 DCW [id number]) Skin Assessment Circumference Measurement 3 Location 10 cm superior to R joint line Measurement (Centimeters) 49.4 Comments L = 39.5 2 Location R joint line Measurement (Centimeters) 47.5 Comments L = 40.6 1 Location 10 cm inferior to R joint line Measurement (Centimeters) 41.9 Comments L = 36.6 PT-OP-K Range of Motion Start: 09/10/21 15:09 Freq: Status: Active Protocol: Document 09/10/21 13:45 DCW (Rec: 09/10/21 15:28 DCW [id number]) Knee Goniometric Range of Motion Knee Right Patient Position Supine Flexion Active (degrees) 96 Extension Active (degrees) 8 Left Patient Position Supine Flexion Active (degrees) 124 Extension Active (degrees) 2 PT-OP-M Strength Start: 09/10/21 15:09 Freq: Status: Active Protocol: Document 09/10/21 13:45 DCW (Rec: 09/10/21 15:28 DCW [id number]) Knee Strength Knee Manual Muscle Testing Left Flexion (S2) 4+ Good+ Extension (L3) 4 Good Right Flexion (S2) 4- Good- Extension (L3) 4- Good- PT-OP-Q Treatments Start: 09/10/21 15:09 Freq: Status: Active Protocol: Document 09/23/21 14:30 DCW (Rec: 09/23/21 15:16 DCW [id number]) Cardio Equipment Recumbent Bicycle Duration (Minutes) 6 Resistance 3 Seat Position 4 Gym Equipment Cable Column (Body Solid) Leg Extension Resistance 15# Leg Curl Resistance 25# Shuttle Recovery Unilateral Squats Resistance 50# Bilateral Squats Resistance 100# Reps/Time Pause at max flexion Therapeutic Exercises Supine Exercises 4 Supine Exercise Name SLR Side bilateral Resistance 5# 1 Supine Exercise Name SAQ Side bilateral Resistance 5# Sitting Exercises 2 Sitting Exercise Name LAQ Side right Resistance 5# Standing Exercises 4 Standing Exercise Name Hip Extension Side bilateral Resistance Green Equipment Used T-band 1 Standing Exercise Name TKE Side bilateral Resistance Lv 2 Other Exercises 1 Other Exercise Name Resisted Side-stepping Resistance Green Equipment Used T-band Manual Therapy Treatment Joint Mobilizations 1 Joint Patellar mobilization Direction Superior<->Inferior Grade III PT-OP-R Modalities Start: 09/10/21 15:09 Freq: Status: Active Protocol: Document 09/13/21 14:30 DCW (Rec: 09/13/21 15:24 DCW [id number]) Hot Pack/Cold Pack Treatment Cold Pack Location R Knee Patient Position Hooklying Treatment Duration (minutes) 10 PT-OP-T Assessment and Plan Start: 09/10/21 15:09 Freq: Status: Active Protocol: Document 09/23/21 14:30 DCW (Rec: 09/23/21 15:16 DCW [id number]) Physical Therapy Assessment Impairments Impairments Edema,Functional Activities, Functional Mobility,Gait, Integument,Pain,ROM,Soft Tissue Mobility,Strength Goals Three Impairment Pt requires FWW during gait for safety and stability Mcc Goal (LTG) Pt to demonstrate ability to ambulate at least 800' without an assistive device during a 6MWT to display independence and safety with community ambulation LTG Duration 11/10/21 Two Impairment Pt presents with limited right knee ROM Operation Supervisor Goal (LTG) Increase right knee ROM to 0- 120? to improve ability to ascend/descend steps LTG Duration 11/10/21 One Impairment Pt does not have an appropriate home exercise program Short Term Goal (STG) Pt to be independent and compliant with an appropriate HEP STG Duration 10/11/21 Assessment Summary Assessment Pt a bit more sore today in his right leg than what he has been, pt unsure what caused this increased pain. Physical Therapy Plan Frequency and Duration Frequency of Treatment 2x/Week Duration of Treatment Two months Plan of Care Start Date 09/10/21 Plan of Care End Date 11/10/21 Therapeutic Interventions Therapeutic Interventions Aquatic Therapy,Gait Training, Home Exercise Program,Joint Mobilizations,Manual Therapy, Neuromuscular Re-education, Patient/Caregiver Education, Self-Care/Home Management,Soft Tissue Mobilization, Therapeutic Activities, Therapeutic Exercises Modalities Cold Pack/Ice Massage,Electric Stimulation,Hot Packs Next Visit Focus/Plan Next Note Type Treatment Note Next Visit Plan Knee ROM, strengthening, pain- control modalities as needed
--- NOTE | 2021-09-27 15:52 | PT.OTN ---
Current Diagnoses Stiffness of right knee, not elsewhere classified (09/27/21) Muscle weakness (generalized) (09/27/21) Presence of right artificial knee joint (09/27/21) Physical Therapy Treatment Note PT-OP-A Visit Information Start: 09/10/21 15:09 Freq: Status: Active Protocol: Document 09/27/21 15:15 DCW (Rec: 09/27/21 15:52 DCW [id number]) Out-Patient Physical Therapy Visit Information Visit Information Visit Type Treatment Note Visit Note Pt requests shortened session today. Visit Start Time 15:15 Visit Stop Time 15:45 Total Visit Minutes 30 Visit Number 6 Number of SENIOR HUMAN RESOURCES REPRESENTATIVE Visits 0 Evaluation Information Evaluation Date 09/10/21 PT-OP-B Current Condition Start: 09/10/21 15:09 Freq: Status: Active Protocol: Document 09/10/21 13:45 DCW (Rec: 09/10/21 15:28 DCW [id number]) Current Condition History of Current Condition Onset Date 09/07/21 Current Complaints s/p R TKA History of Current Condition Pt is an 85 year old male presenting three day s/p R TKA . Pt reports he is having minimal pain, at most 4/10, and is walking well with his FWW. Pt notes he has been performing his post-op HEP regularly since getting home. Pt has no real concerns, feels his left leg has gotten weak after prior rehab at this facility last year following a TKA in November 2019, and then a fractured patella following a fall in April 2020. Notes he has not been able to exercise his left knee due to right knee pain, but is now looking forward to getting both legs stronger. PT-OP-C Subjective Start: 09/10/21 15:09 Freq: Status: Active Protocol: Document 09/27/21 15:15 DCW (Rec: 09/27/21 15:52 DCW [id number]) OP-PT Subjective Patient Comments Patient Comments I had to actually take a pain pill this morning, my leg was hurting me so bad. PT-OP-E Functional Tests Start: 09/10/21 15:09 Freq: Status: Active Protocol: Document 09/10/21 13:45 DCW (Rec: 09/10/21 15:28 DCW [id number]) Functional Tests 6 Minute Walk Test Distance 1030' Device Used FWW Comments 2.86 ft/sec PT-OP-J Posture/Palpation/Skin Start: 09/10/21 15:09 Freq: Status: Active Protocol: Document 09/10/21 13:45 DCW (Rec: 09/10/21 15:28 DCW [id number]) Skin Assessment Circumference Measurement 3 Location 10 cm superior to R joint line Measurement (Centimeters) 49.4 Comments L = 39.5 2 Location R joint line Measurement (Centimeters) 47.5 Comments L = 40.6 1 Location 10 cm inferior to R joint line Measurement (Centimeters) 41.9 Comments L = 36.6 PT-OP-K Range of Motion Start: 09/10/21 15:09 Freq: Status: Active Protocol: Document 09/10/21 13:45 DCW (Rec: 09/10/21 15:28 DCW [id number]) Knee Goniometric Range of Motion Knee Right Patient Position Supine Flexion Active (degrees) 96 Extension Active (degrees) 8 Left Patient Position Supine Flexion Active (degrees) 124 Extension Active (degrees) 2 PT-OP-M Strength Start: 09/10/21 15:09 Freq: Status: Active Protocol: Document 09/10/21 13:45 DCW (Rec: 09/10/21 15:28 DCW [id number]) Knee Strength Knee Manual Muscle Testing Left Flexion (S2) 4+ Good+ Extension (L3) 4 Good Right Flexion (S2) 4- Good- Extension (L3) 4- Good- PT-OP-Q Treatments Start: 09/10/21 15:09 Freq: Status: Active Protocol: Document 09/27/21 15:15 DCW (Rec: 09/27/21 15:52 DCW [id number]) Cardio Equipment Recumbent Bicycle Duration (Minutes) 6 Resistance 4 Seat Position 4 Gym Equipment Shuttle Recovery Unilateral Squats Resistance 50# Bilateral Squats Resistance 100# Reps/Time Pause at max flexion Therapeutic Exercises Sitting Exercises 2 Sitting Exercise Name LAQ Side bilateral Resistance 5# 1 Sitting Exercise Name Hamstring curl Side bilateral Resistance Lv 3 Equipment Used T-band Standing Exercises 1 Standing Exercise Name TKE Side bilateral Resistance Lv 2 Manual Therapy Treatment Joint Mobilizations 1 Joint Patellar mobilization Direction Superior<->Inferior Grade III PT-OP-R Modalities Start: 09/10/21 15:09 Freq: Status: Active Protocol: Document 09/13/21 14:30 DCW (Rec: 09/13/21 15:24 DCW [id number]) Hot Pack/Cold Pack Treatment Cold Pack Location R Knee Patient Position Hooklying Treatment Duration (minutes) 10 PT-OP-T Assessment and Plan Start: 09/10/21 15:09 Freq: Status: Active Protocol: Document 09/27/21 15:15 DCW (Rec: 09/27/21 15:52 DCW [id number]) Physical Therapy Assessment Impairments Impairments Edema,Functional Activities, Functional Mobility,Gait, Integument,Pain,ROM,Soft Tissue Mobility,Strength Goals Three Impairment Pt requires FWW during gait for safety and stability Outreach Consultant Goal (LTG) Pt to demonstrate ability to ambulate at least 800' without an assistive device during a 6MWT to display independence and safety with community ambulation LTG Duration 11/10/21 Two Impairment Pt presents with limited right knee ROM Mcfp Goal (LTG) Increase right knee ROM to 0- 120? to improve ability to ascend/descend steps LTG Duration 11/10/21 One Impairment Pt does not have an appropriate home exercise program Short Term Goal (STG) Pt to be independent and compliant with an appropriate HEP STG Duration 10/11/21 Assessment Summary Assessment Pt noting more limitations from his left leg than his right at this time. Physical Therapy Plan Frequency and Duration Frequency of Treatment 2x/Week Duration of Treatment Two months Plan of Care Start Date 09/10/21 Plan of Care End Date 11/10/21 Therapeutic Interventions Therapeutic Interventions Aquatic Therapy,Gait Training, Home Exercise Program,Joint Mobilizations,Manual Therapy, Neuromuscular Re-education, Patient/Caregiver Education, Self-Care/Home Management,Soft Tissue Mobilization, Therapeutic Activities, Therapeutic Exercises Modalities Cold Pack/Ice Massage,Electric Stimulation,Hot Packs Next Visit Focus/Plan Next Note Type Treatment Note Next Visit Plan Knee ROM, strengthening, pain- control modalities as needed
--- NOTE | 2021-09-30 15:18 | PT.OTN ---
Current Diagnoses Stiffness of right knee, not elsewhere classified (09/30/21) Muscle weakness (generalized) (09/30/21) Presence of right artificial knee joint (09/30/21) Physical Therapy Treatment Note PT-OP-A Visit Information Start: 09/10/21 15:09 Freq: Status: Active Protocol: Document 09/30/21 14:30 DCW (Rec: 09/30/21 15:18 DCW [id number]) Out-Patient Physical Therapy Visit Information Visit Information Visit Type Treatment Note Visit Start Time 14:30 Visit Stop Time 15:15 Total Visit Minutes 45 Visit Number 7 Number of JEWEL HOLE GAUGER Visits 0 Evaluation Information Evaluation Date 09/10/21 PT-OP-B Current Condition Start: 09/10/21 15:09 Freq: Status: Active Protocol: Document 09/10/21 13:45 DCW (Rec: 09/10/21 15:28 DCW [id number]) Current Condition History of Current Condition Onset Date 09/07/21 Current Complaints s/p R TKA History of Current Condition Pt is an 85 year old male presenting three day s/p R TKA . Pt reports he is having minimal pain, at most 4/10, and is walking well with his FWW. Pt notes he has been performing his post-op HEP regularly since getting home. Pt has no real concerns, feels his left leg has gotten weak after prior rehab at this facility last year following a TKA in November 2019, and then a fractured patella following a fall in April 2020. Notes he has not been able to exercise his left knee due to right knee pain, but is now looking forward to getting both legs stronger. 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 PT-OP-E Functional Tests Start: 09/10/21 15:09 Freq: Status: Active Protocol: Document 09/10/21 13:45 DCW (Rec: 09/10/21 15:28 DCW [id number]) Functional Tests 6 Minute Walk Test Distance 1030' Device Used FWW Comments 2.86 ft/sec PT-OP-J Posture/Palpation/Skin Start: 09/10/21 15:09 Freq: Status: Active Protocol: Document 09/10/21 13:45 DCW (Rec: 09/10/21 15:28 DCW [id number]) Skin Assessment Circumference Measurement 3 Location 10 cm superior to R joint line Measurement (Centimeters) 49.4 Comments L = 39.5 2 Location R joint line Measurement (Centimeters) 47.5 Comments L = 40.6 1 Location 10 cm inferior to R joint line Measurement (Centimeters) 41.9 Comments L = 36.6 PT-OP-K Range of Motion Start: 09/10/21 15:09 Freq: Status: Active Protocol: Document 09/10/21 13:45 DCW (Rec: 09/10/21 15:28 DCW [id number]) Knee Goniometric Range of Motion Knee Right Patient Position Supine Flexion Active (degrees) 96 Extension Active (degrees) 8 Left Patient Position Supine Flexion Active (degrees) 124 Extension Active (degrees) 2 PT-OP-M Strength Start: 09/10/21 15:09 Freq: Status: Active Protocol: Document 09/10/21 13:45 DCW (Rec: 09/10/21 15:28 DCW [id number]) Knee Strength Knee Manual Muscle Testing Left Flexion (S2) 4+ Good+ Extension (L3) 4 Good Right Flexion (S2) 4- Good- Extension (L3) 4- Good- PT-OP-Q Treatments Start: 09/10/21 15:09 Freq: Status: Active Protocol: Document 09/30/21 14:30 DCW (Rec: 09/30/21 15:18 DCW [id number]) Cardio Equipment Recumbent Bicycle Duration (Minutes) 6 Resistance 4 Seat Position 4 Gym Equipment Shuttle Recovery Unilateral Squats Resistance 50# Bilateral Squats Resistance 100# Reps/Time Pause at max flexion Therapeutic Exercises Sitting Exercises 2 Sitting Exercise Name LAQ Side bilateral Resistance 5# 1 Sitting Exercise Name Hamstring curl Side bilateral Resistance Lv 3 Equipment Used T-band Standing Exercises 4 Standing Exercise Name Hip Extension Side bilateral Resistance Green Equipment Used T-band Other Exercises 1 Other Exercise Name Resisted Side-stepping Resistance Green Equipment Used T-band PT-OP-R Modalities Start: 09/10/21 15:09 Freq: Status: Active Protocol: Document 09/13/21 14:30 DCW (Rec: 09/13/21 15:24 DCW [id number]) Hot Pack/Cold Pack Treatment Cold Pack Location R Knee Patient Position Hooklying Treatment Duration (minutes) 10 PT-OP-T Assessment and Plan Start: 09/10/21 15:09 Freq: Status: Active Protocol: Document 09/30/21 14:30 DCW (Rec: 09/30/21 15:18 DCW [id number]) Physical Therapy Assessment Impairments Impairments Edema,Functional Activities, Functional Mobility,Gait, Integument,Pain,ROM,Soft Tissue Mobility,Strength Goals Three Impairment Pt requires FWW during gait for safety and stability Sample Maker Original Goal (LTG) Pt to demonstrate ability to ambulate at least 800' without an assistive device during a 6MWT to display independence and safety with community ambulation LTG Duration 11/10/21 Two Impairment Pt presents with limited right knee ROM Sample Maker Original Goal (LTG) Increase right knee ROM to 0- 120? to improve ability to ascend/descend steps LTG Duration 11/10/21 One Impairment Pt does not have an appropriate home exercise program Short Term Goal (STG) Pt to be independent and compliant with an appropriate HEP STG Duration 10/11/21 Assessment Summary Assessment Pt at this time significantly more limited with his left leg following his patellar fracture earlier this year than he is limited by his recent right TKA. Physical Therapy Plan Frequency and Duration Frequency of Treatment 2x/Week Duration of Treatment Two months Plan of Care Start Date 09/10/21 Plan of Care End Date 11/10/21 Therapeutic Interventions Therapeutic Interventions Aquatic Therapy,Gait Training, Home Exercise Program,Joint Mobilizations,Manual Therapy, Neuromuscular Re-education, Patient/Caregiver Education, Self-Care/Home Management,Soft Tissue Mobilization, Therapeutic Activities, Therapeutic Exercises Modalities Cold Pack/Ice Massage,Electric Stimulation,Hot Packs Next Visit Focus/Plan Next Note Type Treatment Note Next Visit Plan Knee ROM, strengthening, pain- control modalities as needed
--- NOTE | 2021-10-04 12:00 | PT.OPDS ---
Current Diagnoses Stiffness of right knee, not elsewhere classified (09/30/21) Muscle weakness (generalized) (09/30/21) Presence of right artificial knee joint (09/30/21) Visit Care Team Role Provider Type Marino Gallegos MD Primary Care Provider Physician Specialty: Internal Medicine Address: [address] [place] [address], [id number] Email: [email or web address] Dar Suazo MD Attending Provider Non-Staff Referring Provider Specialty: Orthopedics Address: [address] [place] [address], [id number] Email: Visit Number Visit Number 7 Discharge Summary PT-OP-B Current Condition Start: 09/10/21 15:09 Freq: Status: Active Protocol: Document 09/10/21 13:45 DCW (Rec: 09/10/21 15:28 DCW [id number]) Current Condition History of Current Condition Onset Date 09/07/21 Current Complaints s/p R TKA History of Current Condition Pt is an 85 year old male presenting three day s/p R TKA . Pt reports he is having minimal pain, at most 4/10, and is walking well with his FWW. Pt notes he has been performing his post-op HEP regularly since getting home. Pt has no real concerns, feels his left leg has gotten weak after prior rehab at this facility last year following a TKA in November 2019, and then a fractured patella following a fall in April 2020. Notes he has not been able to exercise his left knee due to right knee pain, but is now looking forward to getting both legs stronger. 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 PT-OP-E Functional Tests Start: 09/10/21 15:09 Freq: Status: Active Protocol: Document 09/10/21 13:45 DCW (Rec: 09/10/21 15:28 DCW [id number]) Functional Tests 6 Minute Walk Test Distance 1030' Device Used FWW Comments 2.86 ft/sec PT-OP-J Posture/Palpation/Skin Start: 09/10/21 15:09 Freq: Status: Active Protocol: Document 09/10/21 13:45 DCW (Rec: 09/10/21 15:28 DCW [id number]) Skin Assessment Circumference Measurement 3 Location 10 cm superior to R joint line Measurement (Centimeters) 49.4 Comments L = 39.5 2 Location R joint line Measurement (Centimeters) 47.5 Comments L = 40.6 1 Location 10 cm inferior to R joint line Measurement (Centimeters) 41.9 Comments L = 36.6 PT-OP-K Range of Motion Start: 09/10/21 15:09 Freq: Status: Active Protocol: Document 09/10/21 13:45 DCW (Rec: 09/10/21 15:28 DCW [id number]) Knee Goniometric Range of Motion Knee Right Patient Position Supine Flexion Active (degrees) 96 Extension Active (degrees) 8 Left Patient Position Supine Flexion Active (degrees) 124 Extension Active (degrees) 2 PT-OP-M Strength Start: 09/10/21 15:09 Freq: Status: Active Protocol: Document 09/10/21 13:45 DCW (Rec: 09/10/21 15:28 DCW [id number]) Knee Strength Knee Manual Muscle Testing Left Flexion (S2) 4+ Good+ Extension (L3) 4 Good Right Flexion (S2) 4- Good- Extension (L3) 4- Good- PT-OP-T Assessment and Plan Start: 09/10/21 15:09 Freq: Status: Active Protocol: Document 10/04/21 11:59 DCW (Rec: 10/04/21 12:00 DCW [id number]) Physical Therapy Assessment Assessment Summary Assessment Pt phoned clinic to cancel his remaining appointments. Feels he is good to go. Pt will be discharged at this time. Physical Therapy Plan Discharge Physical Therapy Discharge Reasons Patient Request Next Visit Focus/Plan Next Note Type Discharge Summary
== END 2021-12-21 09:46 ==
LOC: PHYS 14:30
PROVIDERS: PCP Internal Medicine; Referring Provider Orthopaedic Surgery; Visit Provider Orthopaedic Surgery
DX: Z96.651 Presence of right artificial knee joint (principal); M25.661 Stiffness of right knee, not elsewhere classified; M62.81 Muscle weakness (generalized)
CPT/HCPCS: 97110; 97140; 97161

== ENCOUNTER 2021-10-14 15:24 | Observation (INO) | payer MEDICARE, OTHER, SELFPAY ==
[2021-10-14] VITALS (10 sets, daily range): BP systolic 136–188; BP diastolic 55–85; PULSE 54–84; RESP 10–20; TEMP 36.4–36.9; O2SAT 97–100; BMI 26.6
--- NOTE | 2021-10-14 15:41 | DI.CT.S_ITS ---
PROCEDURE: CT HEAD/BRAIN WO CON INDICATIONS: fell, hit head, on plavix TECHNIQUE: Noncontrast 4.5 mm thick angled axial sections acquired from the foramen magnum to the vertex, with coronal and sagittal reformats. For radiation dose reduction, the following was used: automated exposure control, adjustment of mA and/or kV according to patient size. COMPARISON: None. FINDINGS: Image quality: Excellent. CSF spaces: Basal cisterns are patent. No extra-axial fluid collections. Ventricles are normal in size and shape. Brain: No midline shift. No intracranial masses or hemorrhage. Rehman-white matter interface is normal. Skull and face: Calvarium and visualized facial bones are intact, without suspicious lesions. Intracranial vasculature atherosclerotic calcifications. Sinuses: Visualized sinuses and mastoids are clear. IMPRESSION: No acute intracranial abnormality Dictated by: Skyler Ferguson M.D. on 10/14/2021 at 16:25 Approved by: Skyler Ferguson M.D. on 10/14/2021 at 16:27
--- NOTE | 2021-10-14 15:41 | DI.RAD.S_ITS ---
PROCEDURE: XR KNEE RT 3V INDICATIONS: fell, complete wound dehiscence, R knee, surg 09/13 TECHNIQUE: 3 views of the knee were acquired. COMPARISON: None. FINDINGS: Bones: Three views of the right knee demonstrate postoperative changes of total right knee replacement. There is no perihardware lucency or perihardware fracture. Soft tissues: No joint effusion. No suspicious soft tissue calcifications. IMPRESSION: Postoperative changes of total right replacement without acute radiographic complication. Dictated by: Skyler Ferguson M.D. on 10/14/2021 at 16:23 Approved by: Skyler Ferguson M.D. on 10/14/2021 at 16:25
--- NOTE | 2021-10-14 15:46 | ED_ITS ---
HPI - General Adult General Chief complaint: Trauma Stated complaint: fell and hit his head deep cut on rt knee Time Seen by Provider: 10/14/21 15:25 History of Present Illness HPI narrative: 86-year-old gentleman with a history hypertension, currently on Plavix status post total knee replacement right side at the [facility] with Dr. Suazo 09/13/21 who was carrying a large flatter stumbled and fell forward. He hit his head there was no loss of consciousness. Has some minor abrasions to the thenar eminence bilaterally and his total knee replacement surgical incision is completely dehisced. There was a moderate amount of bleeding that was controlled with pressure. Currently a clot is completely in place with no active bleeding. He is complaining of minimal pain. There is no other injury or trauma. He notes no headache, shortness of breath, chest pain, palpitations in complaining of very minimal musculoskeletal pain. Related Data Previous Rx's Medication Instructions Recorded gabapentin 100 mg capsule 100 mg PO BEDTIME #120 cap 11/14/19 Allergies Allergy/AdvReac Type Severity Reaction Status Date / Time No Known Drug Allergies Allergy Verified 10/14/21 15:49 Review of Systems Review of Systems Narrative: Remainder of complete review of systems is otherwise unremarkable except for that included in the HPI. Patient History Medical History (Updated 10/14/21 @ 17:04 by Cass Fernandez MD) Fatigue Obstructive sleep apnea Pacemaker Restless legs syndrome (RLS) Snoring Surgical History (Updated 10/14/21 @ 15:51 by Cass Fernandez MD) History of total left knee replacement (TKR) History of total right knee replacement Family History Other Hypertension Social History marital status: lives independently: Yes caregiver/support person: No Smoking Status: Former smoker substance use type: does not use during the past year weight has: decreased > 10 lbs well-balanced diet: daily or most days caffeine: Yes Type(s) of exercise: walking Smoking Status: Former smoker Exam Narrative Exam Narrative: General: Healthy appearing, in no acute distress. Able to give a complete and coherent history. Well-nourished well-developed HEENT: Moist mucous membranes, normal sclera with reactive pupils, Neck: No JVD, supple, no tenderness to the cervical spine, trapezius muscles or occipital insertion sites. Respiratory: Lungs are clear to auscultation, no wheezing no rales no rhonchi. Full and symmetrical air movement Cardiac: Regular rate and rhythm no murmurs no bruits Abdomen: Soft, nontender, good bowel tones, no flank pain Spine: No tenderness along the thoracic or lumbar spine, no tenderness with manipulation of pelvic ring Skin: Warm and dry, no rashes Neurologic: Grossly neurologically intact with no obvious asymmetries or abnormalities Extremities: Right total knee replacement surgical wound from September 13 has completely dehisced. There is an adherent clot and bleeding is controlled. Neurovascularly intact distally. Minor abrasions to the palmar surfaces of both hands. Psych: Cooperative, appropriate insight and affect Initial Vital Signs Initial Vital Signs: Vital Signs Temperature 98.3 F 10/14/21 15:42 Pulse Rate 84 10/14/21 15:42 Respiratory Rate 19 10/14/21 15:42 Blood Pressure 136/67 10/14/21 15:42 Pulse Oximetry 98 10/14/21 15:42 Course Orders Ordered: ED Orders 10/14/21 15:41 CT head/brain wo con Stat XR knee RT 3V Stat 10/14/21 16:15 CBC Auto Diff [Complete Blood Count AUTO DIFF] Stat CMP [Comprehensive Metabolic Panel] Stat COVID19 - ADMIT ([employer] swab/PCR) Stat Type and Screen Stat Hydromorphone HCl (Hydromorphone 0.5 Mg Inj) 0.25 mg IV Q15MIN PRN PRN Reason: Pain, Last Admin: 10/14/21 17:10 Dose: 0.25 mg Documented by: JERRY Discontinued Medications Cefazolin Sodium/Dextrose (Cefazolin 2 Gm/20 Ml Syringe) 2 gm IV NOW ONE Stop: 10/14/21 15:42 Last Admin: 10/14/21 16:26 Dose: 2 gm Documented by: JERRY Vital Signs Vital signs: Vital Signs - 8 hr 10/14/21 15:42 10/14/21 16:53 10/14/21 17:44 Temperature 98.3 F Pulse Rate 84 60 61 Respiratory Rate 19 18 Blood Pressure 136/67 171/79 H 188/85 H Pulse Oximetry 98 99 100 Medical Decision Making Lab Data Lab results narrative: Comparison H&H from July 02, 2021 is 11.5 and 34.5 Mild increasing creatinine from 0.98 up to 1.4 Result diagrams: 10/14/21 16:15 10/14/21 16:15 Labs: Lab Results 10/14/21 10/14/21 10/14/21 Range/Units 16:15 16:15 16:15 WBC 5.7 (4.5-11.0) X10^3/uL RBC 3.20 L (4.5-5.9) X10^6/uL Hgb 10.5 L (13.5-17.5) g/dL Hct 30.6 L (41-53) % MCV 95.7 (80-100) fL MCH 32.9 (26-34) PG MCHC 34.4 (30-36) % RDW 13.5 (11.6-14.8) % Plt Count 273 (150-400) X10^3/uL Neut % (Auto) 60.7 (50-75) % Lymph % (Auto) 27.7 (25-40) % [place] % (Auto) 7.3 (3-14) % Eos % (Auto) 3.6 (2-4) % Baso % (Auto) 0.7 (0-2) % Neut # (Auto) 3500 (2115-7821) /uL Lymph # (Auto) 1600 (8192-1026) /uL [place] # (Auto) 400 (0-900) /uL Eos # (Auto) 200 (0-450) /uL Baso # (Auto) 0 (0-100) /uL Sodium 135 L (137-145) mmol/L Potassium 4.4 (3.4-5.1) mmol/L Chloride 103 (98-107) mmol/L Carbon Dioxide 24 (22-32) mmol/L BUN 39 H (9-20) mg/dL Creatinine 1.41 H (0.66-1.25) mg/dL Estimated GFR 47.7 L (>60) mL/min BUN/Creatinine Ratio 27.7 H (6-22) Glucose 105 (80-110) mg/dL Calcium 9.5 (8.4-10.2) mg/dL Total Bilirubin 0.4 (0.2-1.3) mg/dL AST 30 (17-59) IU/L ALT 16 (<50) IU/L Alkaline Phosphatase 58 (38-126) U/L Total Protein 6.7 (6.3-8.2) g/dL Albumin 4.2 (3.5-5.0) g/dL Globulin 2.5 (1.7-4.1) g/dL Albumin/Globulin Ratio 1.7 (1.0-2.8) SARS-CoV-2 (PCR) (Negative) Blood Type A Negative Antibody Screen Negative 10/14/21 Range/Units 16:15 WBC (4.5-11.0) X10^3/uL RBC (4.5-5.9) X10^6/uL Hgb (13.5-17.5) g/dL Hct (41-53) % MCV (80-100) fL MCH (26-34) PG MCHC (30-36) % RDW (11.6-14.8) % Plt Count (150-400) X10^3/uL Neut % (Auto) (50-75) % Lymph % (Auto) (25-40) % [place] % (Auto) (3-14) % Eos % (Auto) (2-4) % Baso % (Auto) (0-2) % Neut # (Auto) (9581-3105) /uL Lymph # (Auto) (3407-2347) /uL [place] # (Auto) (0-900) /uL Eos # (Auto) (0-450) /uL Baso # (Auto) (0-100) /uL Sodium (137-145) mmol/L Potassium (3.4-5.1) mmol/L Chloride (98-107) mmol/L Carbon Dioxide (22-32) mmol/L BUN (9-20) mg/dL Creatinine (0.66-1.25) mg/dL Estimated GFR (>60) mL/min BUN/Creatinine Ratio (6-22) Glucose (80-110) mg/dL Calcium (8.4-10.2) mg/dL Total Bilirubin (0.2-1.3) mg/dL AST (17-59) IU/L ALT (<50) IU/L Alkaline Phosphatase (38-126) U/L Total Protein (6.3-8.2) g/dL Albumin (3.5-5.0) g/dL Globulin (1.7-4.1) g/dL Albumin/Globulin Ratio (1.0-2.8) SARS-CoV-2 (PCR) Negative (Negative) Blood Type Antibody Screen Imaging Data CT scan - head: Radiologist's Impression: FINDINGS:? Image quality:? Excellent.? ? CSF spaces:? Basal cisterns are patent.? No extra-axial fluid collections.? Ventricles are normal in size and shape.? ? Brain:? No midline shift.? No intracranial masses or hemorrhage.? Rehman-white matter interface is normal.? ? Skull and face:? Calvarium and visualized facial bones are intact, without suspicious lesions.? Intracranial vasculature atherosclerotic calcifications. ? Sinuses:? Visualized sinuses and mastoids are clear.? ? IMPRESSION:? No acute intracranial abnormality ? ? Dictated by: Skyler Ferguson M.D. on 10/14/2021 at 16:25? ?? XR knee: Radiologist's Impression: FINDINGS:? ? Bones:? Three views of the right knee demonstrate postoperative changes of total right knee replacement.? There is no perihardware lucency or perihardware fracture. ? Soft tissues:? No joint effusion.? No suspicious soft tissue calcifications.? ? ? IMPRESSION:? Postoperative changes of total right replacement without acute radiographic complication. ? ? Dictated by: Skyler Ferguson M.D. on 10/14/2021 at 16:23? ?? MDM Narrative Medical decision making narrative: 86-year-old gentleman who stumbled [facility]. He did hit his head and head CT is unremarkable. Some minor abrasions to his hands. He completely dehisced his right knee wound from his total knee replacement 1 month ago. X-rays of the knee do not show any periprosthetic fractures are additional complications. Will review with Dr. Pinto, orthopedic surgeon. His last meal was at 10:00 a.m.. She will plan on taking him to the operating room this evening. Unless there is an for seen complications anticipation will be home after sterile closure of his right knee replacement wound. Discharge Plan Departure Patient Disposition: Admitted as Observation Clinical Impression: Dehiscence of operative wound, Fall, Abrasion of hand Admit Date/Time: 10/14/21 17:48 Admit Provider: Gaviota Whipple
[2021-10-14 16:26] LABS: Add Manual Diff / Slide Review NO; Basophils Absolute Auto 0 /uL (0-100); Basophils Percent Auto 0.7 % (0-2); Eosinophils Absolute Auto 200 /uL (0-450); Eosinophils Percent Auto 3.6 % (2-4); Hematocrit 30.6 % (41-53); Hemoglobin 10.5 g/dL (13.5-17.5); Lymphocytes Absolute Auto 1600 /uL (1100-4500); Lymphocytes Percent Auto 27.7 % (25-40); Mean Corpuscular HGB Conc 34.4 % (30-36); Mean Corpuscular Hemoglobin 32.9 PG (26-34); Mean Corpuscular Volume 95.7 fL (80-100); Monocytes Absolute Auto 400 /uL (0-900); Monocytes Percent Auto 7.3 % (3-14); Neutrophils Absolute Auto 3500 /uL (1500-7000); Neutrophils Percent Auto 60.7 % (50-75); Platelet Count 273 X10^3/uL (150-400); Red Cell Distribution Width 13.5 % (11.6-14.8); White Blood Cell Count 5.7 X10^3/uL (4.5-11.0)
[2021-10-14] MEDS: CEFAZOLIN 2 GM/20 ML SYRINGE IV (16:26)
[2021-10-14 16:44] LABS: Alanine Aminotransferase 16 IU/L (<50); Albumin 4.2 g/dL (3.5-5.0); Albumin Globulin Ratio 1.7 (1.0-2.8); Alkaline Phosphatase 58 U/L (38-126); Aspartate Aminotransferase 30 IU/L (17-59); BUN Creatinine Ratio 27.7 (6-22); Bilirubin Total 0.4 mg/dL (0.2-1.3); Blood Urea Nitrogen 39 mg/dL (9-20); Calcium 9.5 mg/dL (8.4-10.2); Carbon Dioxide 24 mmol/L (22-32); Chloride 103 mmol/L (98-107); Estimated Glomerular Filt Rate 47.7 mL/min (>60); Globulin 2.5 g/dL (1.7-4.1); Glucose 105 mg/dL (80-110); HEMOLYSIS < 15 (0-50); Potassium 4.4 mmol/L (3.4-5.1); Sodium 135 mmol/L (137-145); Total Protein 6.7 g/dL (6.3-8.2)
[2021-10-14] MEDS: HYDROMORPHONE 0.5 MG INJ 0.25 MG IV (17:10)
[2021-10-14 17:36] LABS: COVID19 - ADMIT (NP swab/PCR) Negative (Negative)
--- NOTE | 2021-10-14 18:00 | P.HP_ITS ---
History of Present Illness History of Present Illness Date Patient Seen: 10/14/21 Time Patient Seen: 18:00 Date of Onset of Symptoms: 10/14/21 Chief complaint: fell and hit his head deep cut on rt knee Narrative: Patient is an 86-year-old male with a history of a right total knee replacement done by Dr. Dar hazel at [facility] approximately 4 weeks ago. Patient has a history of subclavian steal syndrome and is on Plavix. Patient was walking today caring a plate of turkey when he fell directly on his right knee also hitting his head. He sustained dehiscence of his right knee wound the entire length of the incision. Has substantial bleeding. He was brought to [facility] ER where he was evaluated. CT of the head demonstrated no intracranial abnormality. He had a complete dehiscence of his total knee arthr oplasty incision and was indicated for operative washout debridement and closure. He received 2 g of Ancef in the emergency room. Last meal was 10:00 a.m. with only a small sip of fluid after that. Reports that pain and previously been controlled at home had a small pain prescription after his total knee and then had not required any additional medication. He has a planned follow-up with Dr. hazel this coming week. His is with him in the emergency room. She works at the hospital. Patient History Medical History Fatigue Obstructive sleep apnea Pacemaker Restless legs syndrome (RLS) Snoring Surgical History History of total left knee replacement (TKR) History of total right knee replacement Family & Social History Family History Other Hypertension Social History: lives independently Yes caregiver/support person No Safety & Behavioral: Feels Safe in Current Yes Environment Been Physically Hurt or No Threatened By a Person Tobacco & Substance use: Smoking Status Former smoker alcohol intake frequency 0-2 drinks per day Substance Use Type does not use Meds Home Medications and Allergies Home Medications Medication Instructions Recorded Confirmed Type gabapentin 100 mg capsule 100 mg PO BEDTIME #120 cap 11/14/19 03/15/20 Rx Allergies Allergy/AdvReac Type Severity Reaction Status Date / Time No Known Drug Allergies Allergy Verified 10/14/21 15:49 Review of Systems Review of Systems Narrative: Moderate pain. No fevers or chills. History of subclavian steal syndrome. No blood pressures in the right upper extremity states he had a history of a TIA after his blood pressure dropped too low Exam Vital Signs (past 8 hours): - 10/14/21 15:42 10/14/21 16:53 10/14/21 17:44 Temperature 98.3 F Pulse Rate 84 60 61 Respiratory Rate 19 18 Blood Pressure 136/67 171/79 H 188/85 H Pulse Oximetry 98 99 100 Oxygen Delivery Method Room Air Narrative Exam Narrative: Alert oriented male lying on the stretcher in the ER. Answers questions appropriately. Normocephalic atraumatic. Respiratory exam unlabored on room air. Lungs clear to auscultation. Heart regular rate. Moving bilateral upper extremities without limitation. Moves left lower extremity without limitation. Healed TKA scar. Right lower extremity is wrapped in an Umer wrap with a abdomin al pad demonstrates complete dehiscence of the length of the longitudinal TKA incision on the right knee with blood clot present. Only dehisced about a cm and half. Looks like there may be intact capsule and more of a superficial dehiscence however this is the entire length of the wound and there is substantial clot present. No gross exposure of implants on ER examination. Dorsiflexion plantar flexion of the ankle. Calf is soft. Objective Imaging Right knee x-ray: My impression: AP lateral and sunrise views of the right knee with expected position total knee arthroplasty gluten resurfacing of the patella. On the sunrise view there is a lucency you consistent with a defect in the soft tissues centered along the superior medial aspect of the patella consistent with known history of wound dehiscence Radiologist's impression: Impression postoperative changes right total knee replacement without acute radiographic complication. Labs Result Diagrams: 10/14/21 16:15 10/14/21 16:15 Labs: Laboratory Results - last 24 hr 10/14/21 10/14/21 10/14/21 16:15 16:15 16:15 WBC 5.7 RBC 3.20 L Hgb 10.5 L Hct 30.6 L MCV 95.7 MCH 32.9 MCHC 34.4 RDW 13.5 Plt Count 273 Neut % (Auto) 60.7 Lymph % (Auto) 27.7 [place] % (Auto) 7.3 Eos % (Auto) 3.6 Baso % (Auto) 0.7 Neut # (Auto) 3500 Lymph # (Auto) 1600 [place] # (Auto) 400 Eos # (Auto) 200 Baso # (Auto) 0 Sodium 135 L Potassium 4.4 Chloride 103 Carbon Dioxide 24 BUN 39 H Creatinine 1.41 H Estimated GFR 47.7 L BUN/Creatinine Ratio 27.7 H Glucose 105 Calcium 9.5 Total Bilirubin 0.4 AST 30 ALT 16 Alkaline Phosphatase 58 Total Protein 6.7 Albumin 4.2 Globulin 2.5 Albumin/Globulin Ratio 1.7 SARS-CoV-2 (PCR) Blood Type A Negative Antibody Screen Negative 10/14/21 16:15 WBC RBC Hgb Hct MCV MCH MCHC RDW Plt Count Neut % (Auto) Lymph % (Auto) [place] % (Auto) Eos % (Auto) Baso % (Auto) Neut # (Auto) Lymph # (Auto) [place] # (Auto) Eos # (Auto) Baso # (Auto) Sodium Potassium Chloride Carbon Dioxide BUN Creatinine Estimated GFR BUN/Creatinine Ratio Glucose Calcium Total Bilirubin AST ALT Alkaline Phosphatase Total Protein Albumin Globulin Albumin/Globulin Ratio SARS-CoV-2 (PCR) Negative Blood Type Antibody Screen Assessment & Plan Assessment and plan (1) Dehiscence of operative wound: Status: Acute (2) History of total right knee replacement: Problem details: 08/2021 Status: Acute Plan Recent history of right total knee replacement now with dehiscence of operative wound by Trauma. Complete dehiscence of operative incision with possible extension to traumatic arthrotomy. The patient is indicated for formal operative wound debridement and irrigation to reduce the risk of developing an infection. He has received IV antibiotics in the ER. Plan to OR for formal debridement repair and closure. And will discharge on empiric oral antibiotics. Will have follow-up with his operative surgeon within 1 week. Discussed risks for developing infection in the coming weeks and may require additional surgeries debridement poly exchange or revision if that happens. He understands and agrees with the plan. The risks and benefits of the procedure have been discussed with the patient even opportunity to ask questions. The risks of surgery include but are not limited to infection, wound dehiscence, persistence of pain, damage to nerves and blood vessels, need for additional procedures, DVT, PE, cardiopulmonary complications and . The patient expressed a thorough understanding of the risks and benefits of surgery and has elected to proceed. Consent was signed. COVID-19 COVID-19 status: Negative Result date/Date tested (Pos, Neg/Pending): 10/14/21 Time Spent With Patient Critical Care time: I spent a total of [] minutes of critical care time on this patient's care today; this time is exclusive of procedural time. Quality VTE Deep Vein Thrombosis/Pulmonary Embolism Present on Admission: No
[2021-10-14] MEDS: CEFAZOLIN 1 GM VIAL IV (18:45)
--- NOTE | 2021-10-14 18:51 | SUR.OPER ---
Supine on padded OR bed, head on pillow, arms secured on padded arm boards at <90 degrees abduction, legs uncrossed, safety belt at thigh, tapeover blanket over lower legs. Rolled blanmket placed under patient's right hip
[2021-10-14] MEDS: BUPIVACAINE 0.25% (PF) VIAL 30 ML INJ (18:56)
[2021-10-14] MEDS: EPINEPHrine 1 MG/ML 0.15 MG INJ (18:58)
--- NOTE | 2021-10-14 19:37 | PM.OP.1 ---
Operative Date/Time/Diagnoses Date of procedure: 10/14/21 Time of procedure: 19:39 Pre-op diagnosis: Surgical wound dehiscence right knee total knee arthroplasty wound Post-op diagnosis: same Procedure & Clinicians Procedure: Irrigation debridement and repair and layered closure wound dehiscence right knee, total knee incision dehiscence. 12 cm wound repair CPT code 31174 Same procedure as scheduled: Yes Indications: Patient is a 86-year-old male that underwent a right total knee replacement with Dr. Dar hazel down to [facility] approximately 4 weeks ago. He fell onto his right knee earlier today and sustained a complete wound dehiscence 12 cm in length. Only about 3 cm at the very proximal aspect of the incision remained intact. This was a complete dehiscence of the epidermis and dermal layers with exposed pre patella bursa. Patient was indicated for operative debridement exploration of the wound dehiscence and repair to reduce the risks of infection. The risks and benefits of the procedure have been discussed with the patient even opportunity to ask questions. The risks of surgery include but are not limited to infection, need for additional procedures, persistence of pain, damage to nerves and blood vessels, DVT, PE, cardiopulmonary complications and . The patient expressed a thorough understanding of the risks and benefits of surgery and has elected to proceed. Consent was signed. Surgeon: Gaviota Whipple Click Yes if Unassisted: Yes Anesthesia Type: General and Local Operative Notes Findings: Complete superficial wound dehiscence involving the epidermis and dermis exposure of the patella bursa. Retinacula and capsule were intact. No violation of the joint was demonstrated. There was a large degloved lateral patellar flap with blood clot. This was evacuated. Devitalized bursa was debrided and wound was debrided with a rongeur curette and irrigated with 6 L of saline and closed in a layered fashion. Closure Type: primary Specimen(s): none sent Estimated Blood Loss (mL): 20 Tourniquet time (min): 0 Procedure in detail: Patient was seen in the preoperative area the site of surgery was marked informed consent confirmed. He was brought back to the operating room by the anesthesia team positioned supine on operative table. General anesthetic was administered. All bony prominences well padded. An SCD was placed on the contralateral lower extremity. No tourniquet was used. A small ipsilateral thigh bump was used. The right lower extremities prepped and draped in the standard sterile fashion. Betadine was used for the open wound. The patient had received 2 g of Ancef 21st rise to the ER in timing was appropriate repeat the 2 g of Ancef preoperatively at the time of surgery. Formal time-out procedure was performed confirming the operative extremity, consent appropriate antibiotics. All were in agreement. Attention turned to the right lower extremity. The dehiscence measured 12 cm and was nearly the entire index incision except for less than 3 cm the very proximal aspect. This was complete full-thickness through the skin and the capsule was exposed but there was no violation of the arthrotomy on interrogation. Devitalized bursa and clot was removed from the wound. Wound was then thoroughly irrigated with 6 L of saline using pulsatile lavage. There were few small skin bleeders that were cauterized with Bovie cautery. Wound was then closed in a layered fashion with 2-0 PDS suture deep and 3-0 nylon suture in the skin. The knee was taken through range of motion to make sure that there were no gaps or further dehiscence of the wound with the stress. This remained intact. 20 cc of 0.25% Marcaine with epinephrine were injected for local anesthetic. An Aquacel dressing was then placed followed by Umer wrap. Drapes removed. The patient was woken from anesthesia and taken to recovery room in good condition. There no immediate complications from this procedure. All counts were correct. Complications: none Post-operative Condition: stable Disposition: PACU Plan for aftercare: Weightbear as tolerated. Aquacel dressing will remain in place. May shower with Aquacel dressing. Gentle range of motion as tolerated. Will provide prophylactic oral antibiotic prescription of cephalexin. Patient already has a follow-up appointment with his surgeon in 1 week which would be appropriate timing for a wound check. He has nylon sutures in place.
[2021-10-14] MEDS: OXYCODONE/ACETAMINOPHEN 5/325 TABLET 1 TAB PO (19:56)
--- NOTE | 2021-10-14 20:26 | SUR.PHASEII ---
Pt to PACU with Anesth and RN breathing unassisted on room air. Pt awoke easily, tolerated water then apple sauce and pain pill. Pt verbalized readiness for discharge. to bedside, discharge instructions removed. Pt discharged via WC to car, able to transfer self to car and sit independently.
== END 2021-10-14 20:12 | disposition home or self-care (01) ==
LOC: ED 17:04 → AC 17:49
PROVIDERS: Admitting Provider Orthopaedic Surgery Foot and Ankle Surgery; Emergency Provider Emergency Medicine; PCP Internal Medicine; Referring Provider Emergency Medicine; Visit Provider Orthopaedic Surgery Foot and Ankle Surgery
PROC: (CPT 13121; principal; 2021-10-14 18:15)
DX: T81.31XA Disruption of external operation (surgical) wound, not elsewhere classified, initial encounter (principal); Z96.651 Presence of right artificial knee joint; W01.10XA Fall on same level from slipping, tripping and stumbling with subsequent striking against unspecified object, initial encounter; Z79.01 Long term (current) use of anticoagulants; Z95.0 Presence of cardiac pacemaker; G45.8 Other transient cerebral ischemic attacks and related syndromes; G47.33 Obstructive sleep apnea (adult) (pediatric); G25.81 Restless legs syndrome; Z20.822 Contact with and (suspected) exposure to COVID-19
CPT/HCPCS: 13121; 13122; 36415; 70450; 73562; 80053; 85025; 86850; 86900; 86901; 87635; 96374; 99284; 99285; C9803; G0378; J0171; J0690; J1100; J1170; J2405; J2704; J3010

== ENCOUNTER 2022-01-20 14:30 | Outpatient (RCR) | payer MEDICARE, OTHER, SELFPAY ==
--- NOTE | 2021-12-29 17:06 | PT.OIE ---
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 Visit Care Team Role Provider Type Oscar Tompkins MD Attending Provider Physician Family Provider Primary Care Provider Referring Provider Specialty: Family Practice Address: [address] [place] [address] [place], [place], [facility] Email: [email or web address] Physical Therapy Initial Evaluation PT-OP-A Visit Information Start: 12/29/21 16:43 Freq: Status: Active Protocol: Document 12/29/21 15:25 DCW (Rec: 12/29/21 17:06 DC [id number]) Out-Patient Physical Therapy Visit Information Visit Information Visit Type Initial Evaluation Visit Start Time 15:25 Visit Stop Time 16:00 Total Visit Minutes 35 Visit Number 1 Number of RETAIL WORKER Visits 0 Evaluation Information Evaluation Date 12/29/21 PT-OP-B Current Condition Start: 12/29/21 16:43 Freq: Status: Active Protocol: Document 12/29/21 15:25 DCW (Rec: 12/29/21 17:06 DC [id number]) Current Condition History of Current Condition Onset Date 12 year history Current Complaints Low back and right leg pain History of Current Condition Pt is an 86 year old male very well known to this clinic reporting a multi-year history of low back and right leg pain. Pt reports that 11-12 years ago, he had a lumbar fusion, he believes he had four vertebrae fused, and ever since that time, he has had fairly consistent pain in his low back and into his right leg. Pt thinks that at the time, he was told that the fusion may have resulted in there not being enough space for his nerves to exit his back. Notes he currently gets back spasms if he walks more than 100 yards. Standing straight up causes pain, but he feels better with sitting. Has recently undergone bilateral TKAs, which he was seen here for PT after both surgeries. Treatment Goals Patient/Caregiver Goals Decrease radicular right leg pain PT-OP-C Subjective Start: 12/29/21 16:43 Freq: Status: Active Protocol: Document 12/29/21 15:25 DCW (Rec: 12/29/21 17:06 DCW [id number]) OP-PT Subjective Patient Comments Patient Comments I fell on my right knee around Thanksgiving, I was worried that I fractured my right knee cap like I did my left after my knee replacement , but it seems to be alright. Patient Reported Progress Same Patient Questionnaires Oswestry Low Back Index Oswestry Score 6/50 = 12% OP-PT Pain Assessment Pain Assessment Grid Paper Pain Assessment Grid Completed Yes Location Right Posterior Leg Intensity 7 Scale Used Numeric (0 - 10) Description Radiating Radiating Location Low back to foot PT-OP-F Manual Assessment Start: 12/29/21 16:43 Freq: Status: Active Protocol: Document 12/29/21 15:25 DCW (Rec: 12/29/21 17:06 DCW [id number]) Manual Assessments Soft Tissue Assessment Soft Tissue Mobility Assessment Moderate tone in right piriformis PT-OP-K Range of Motion Start: 12/29/21 16:43 Freq: Status: Active Protocol: Document 12/29/21 15:25 DCW (Rec: 12/29/21 17:06 DCW [id number]) Hip Goniometric Range of Motion Hip ROM Limitations Hip ROM Limitations Soft Tissue Tightness Comments Right hip PROM limited during SLR and with IR due to sof tissue tightness PT-OP-L Special Tests Start: 12/29/21 16:43 Freq: Status: Active Protocol: Document 12/29/21 15:25 DCW (Rec: 12/29/21 17:06 DCW [id number]) Special Tests Lumbar Spine Special Tests ELAINE Test Results Negative Straight Leg Raise Test Results Negative Slump Test Results Negative A-P Shearing Test Results Negative Hip Special Tests Piriformis Test Results R stiffness, mild soreness PT-OP-M Strength Start: 12/29/21 16:43 Freq: Status: Active Protocol: Document 12/29/21 15:25 DCW (Rec: 12/29/21 17:06 DCW [id number]) Hip Strength Hip Manual Muscle Testing Right Flexion (L2) 4 Good Abduction 4 Good Adduction 4 Good External Rotation 4 Good Internal Rotation 4 Good PT-OP-Q Treatments Start: 12/29/21 16:43 Freq: Status: Active Protocol: Document 12/29/21 15:25 DCW (Rec: 12/29/21 17:06 DC [id number]) Therapeutic Exercises Supine Exercises 1 Supine Exercise Name Piriformis stretch Side right Comments Fig-4, knee to opposite shoulder Sitting Exercises 1 Sitting Exercise Name Piriformis stretch Comments Seated figure-4 PT-OP-T Assessment and Plan Start: 12/29/21 16:43 Freq: Status: Active Protocol: Document 12/29/21 15:25 DCW (Rec: 12/29/21 17:06 [facility] [id number]) Physical Therapy Assessment Rehab Potential Rehabilitation Potential Fair Evaluation Complexity Number of Personal Factors/Comorbidities 1-2 Number of Body Systems Impaired 3 Clinical Presentation at Evaluation Unstable Impairments Impairments Functional Activities, Functional Mobility,Pain,Soft Tissue Mobility,Strength Goals Two Impairment Pt unable to ambulate more than 300 feet without back pain [facility]cf Goal (LTG) Pt to demonstrate ability to ambulate at least 800 feet during a 6 MWT without increased low back or leg pain LTG Duration 02/26/22 One Impairment Pt does not have an appropriate home exercise program Short Term Goal (STG) Pt to be independent and compliant with an appropriate HEP STG Duration 01/26/22 Assessment Summary Assessment Pt presents with signs and symptoms consistent with R LE nerve entrapment. Pt does have some signs of increased tone in right hamstring and piriformis, which, if addressed, my improve pt's quality of pain-free ambulation. Pt's medical history is an unfortunate complicating factor, and pain may be largely due to side- effects from prior lumbar surgical intervention. Unclear at this time how beneficial physical therapy will ultimately be, however focusing on general low back, core, and hip strengthening and decreasing tone may assist at least some with radicular pain. If there is no notable change, pt may need ot return to PCP for new options. Physical Therapy Plan Frequency and Duration Frequency of Treatment 2x/Week Duration of Treatment Two months Plan of Care Start Date 12/29/21 Plan of Care End Date 02/26/22 Therapeutic Interventions Therapeutic Interventions Aquatic Therapy,Home Exercise Program,Manual Therapy, Neuromuscular Re-education, Patient/Caregiver Education, Self-Care/Home Management,Soft Tissue Mobilization, Therapeutic Activities, Therapeutic Exercises Modalities Cold Pack/Ice Massage,Hot Packs Next Visit Focus/Plan Next Note Type Treatment Note Next Visit Plan Hip strengthening, flexibility , STM
--- NOTE | 2021-12-29 17:06 | PT.OPPOC ---
Physical, Occupational & Speech Therapy At [facility] Current Diagnoses Sciatica, right side (12/29/21) Lumbago with sciatica, right side (12/29/21) Visit Care Team Role Provider Type Oscar Tompkins MD Attending Provider Physician Family Provider Primary Care Provider Referring Provider Specialty: Family Practice Address: [facility] [place], [facility] Email: Plan Of Care PT-OP-T Assessment and Plan Start: 12/29/21 16:43 Freq: Status: Active Protocol: Document 12/29/21 15:25 DCW (Rec: 12/29/21 17:06 DCW [id number]) Physical Therapy Assessment Rehab Potential Rehabilitation Potential Fair Evaluation Complexity Number of Personal Factors/Comorbidities 1-2 Number of Body Systems Impaired 3 Clinical Presentation at Evaluation Unstable Impairments Impairments Functional Activities, Functional Mobility,Pain,Soft Tissue Mobility,Strength Goals Two Impairment Pt unable to ambulate more than 300 feet without back pain Ticket Worker Goal (LTG) Pt to demonstrate ability to ambulate at least 800 feet during a 6 MWT without increased low back or leg pain LTG Duration 02/26/22 One Impairment Pt does not have an appropriate home exercise program Short Term Goal (STG) Pt to be independent and compliant with an appropriate HEP STG Duration 01/26/22 Assessment Summary Assessment Pt presents with signs and symptoms consistent with R LE nerve entrapment. Pt does have some signs of increased tone in right hamstring and piriformis, which, if addressed, my improve pt's quality of pain-free ambulation. Pt's medical history is an unfortunate complicating factor, and pain may be largely due to side- effects from prior lumbar surgical intervention. Unclear at this time how beneficial physical therapy will ultimately be, however focusing on general low back, core, and hip strengthening and decreasing tone may assist at least some with radicular pain. If there is no notable change, pt may need ot return to PCP for new options. Physical Therapy Plan Frequency and Duration Frequency of Treatment 2x/Week Duration of Treatment Two months Plan of Care Start Date 12/29/21 Plan of Care End Date 02/26/22 Therapeutic Interventions Therapeutic Interventions Aquatic Therapy,Home Exercise Program,Manual Therapy, Neuromuscular Re-education, Patient/Caregiver Education, Self-Care/Home Management,Soft Tissue Mobilization, Therapeutic Activities, Therapeutic Exercises Modalities Cold Pack/Ice Massage,Hot Packs Next Visit Focus/Plan Next Note Type Treatment Note Next Visit Plan Hip strengthening, flexibility , STM Plan of Care Dates Plan of Care Start Date 12/29/21 Plan of Care End Date 02/26/22 Electronically Signed by: Kahlil Patel, PT 12/29/21 [id number] Please Sign and Return: I have reviewed this Plan of Care and certify that the skilled therapy services above are required to meet the patient?s needs. Physician Signature Date Printed Name and Credentials Clinical Instructor Signature Printed Name and Credentials
--- NOTE | 2022-01-04 15:20 | PT.OTN ---
Current Diagnoses Sciatica, right side (01/04/22) Lumbago with sciatica, right side (01/04/22) Physical Therapy Treatment Note PT-OP-A Visit Information Start: 12/29/21 16:43 Freq: Status: Active Protocol: Document 01/04/22 14:34 DCW (Rec: 01/04/22 15:20 DCW [id number]) Out-Patient Physical Therapy Visit Information Visit Information Visit Type Treatment Note Visit Start Time 14:34 Visit Stop Time 15:15 Total Visit Minutes 41 Visit Number 2 Number of GRANULATOR Visits 0 Evaluation Information Evaluation Date 12/29/21 PT-OP-B Current Condition Start: 12/29/21 16:43 Freq: Status: Active Protocol: Document 12/29/21 15:25 DCW (Rec: 12/29/21 17:06 DCW [id number]) Current Condition History of Current Condition Onset Date 12 year history Current Complaints Low back and right leg pain History of Current Condition Pt is an 86 year old male very well known to this clinic reporting a multi-year history of low back and right leg pain. Pt reports that 11-12 years ago, he had a lumbar fusion, he believes he had four vertebrae fused, and ever since that time, he has had fairly consistent pain in his low back and into his right leg. Pt thinks that at the time, he was told that the fusion may have resulted in there not being enough space for his nerves to exit his back. Notes he currently gets back spasmsif he walks more than 100 yards. Standing straight up causes pain, but he feels better with sitting. Has recently undergone bilateral TKAs, which he was seen here for PT after both surgeries. Treatment Goals Patient/Caregiver Goals Decrease radicular right leg pain PT-OP-C Subjective Start: 12/29/21 16:43 Freq: Status: Active Protocol: Document 01/04/22 14:34 DCW (Rec: 01/04/22 15:20 DCW [id number]) OP-PT Subjective Patient Comments Patient Comments Pt notes his back has still been bothering him, he had to go to [employer] this morning, and just walking around there about killed me. PT-OP-F Manual Assessment Start: 12/29/21 16:43 Freq: Status: Active Protocol: Document 12/29/21 15:25 DCW (Rec: 12/29/21 17:06 DCW [id number]) Manual Assessments Soft Tissue Assessment Soft Tissue Mobility Assessment Moderate tone in right piriformis PT-OP-K Range of Motion Start: 12/29/21 16:43 Freq: Status: Active Protocol: Document 12/29/21 15:25 DCW (Rec: 12/29/21 17:06 DCW [id number]) Hip Goniometric Range of Motion Hip ROM Limitations Hip ROM Limitations Soft Tissue Tightness Comments Right hip PROM limited during SLR and with IR due to sof ttissue tightness PT-OP-L Special Tests Start: 12/29/21 16:43 Freq: Status: Active Protocol: Document 12/29/21 15:25 DCW (Rec: 12/29/21 17:06 DCW [id number]) Special Tests Lumbar Spine Special Tests ELAINE Test Results Negative Straight Leg Raise Test Results Negative Slump Test Results Negative A-P Shearing Test Results Negative Hip Special Tests Piriformis Test Results R stiffness, mild soreness PT-OP-M Strength Start: 12/29/21 16:43 Freq: Status: Active Protocol: Document 12/29/21 15:25 DCW (Rec: 12/29/21 17:06 DCW [id number]) Hip Strength Hip Manual Muscle Testing Right Flexion (L2) 4 Good Abduction 4 Good Adduction 4 Good External Rotation 4 Good Internal Rotation 4 Good PT-OP-Q Treatments Start: 12/29/21 16:43 Freq: Status: Active Protocol: Document 01/04/22 14:34 DCW (Rec: 01/04/22 15:20 DCW [id number]) Therapeutic Exercises Supine Exercises 1 Supine Exercise Name Piriformis stretch Side right Comments knee to opposite shoulder Sitting Exercises 1 Sitting Exercise Name Piriformis stretch Comments Seated figure-4 Manual Therapy Treatment Soft Tissue Mobilization 1 Body Location QL, Piriformis bilateral Mobilization Type Strumming,Sustained Pressure Intensity/Depth Deep Body Position Sidelying PT-OP-T Assessment and Plan Start: 12/29/21 16:43 Freq: Status: Active Protocol: Document 01/04/22 14:34 DCW (Rec: 01/04/22 15:20 DCW [id number]) Physical Therapy Assessment Impairments Impairments Functional Activities, Functional Mobility,Pain,Soft Tissue Mobility,Strength Goals Two Impairment Pt unable to ambulate more than 300 feet without back pain Home Sales Service Professional Goal (LTG) Pt to demonstrate ability to ambulate at least 800 feet during a 6 MWT without increased low back or leg pain LTG Duration 02/26/22 One Impairment Pt does not have an appropriate home exercise program Short Term Goal (STG) Pt to be independent and compliant with an appropriate HEP STG Duration 01/26/22 Assessment Summary Assessment Focused today mostly on STM to decrease tone due to pt's increased soreness recently. Pt tolerated treatment fairly well. Physical Therapy Plan Frequency and Duration Frequency of Treatment 2x/Week Duration of Treatment Two months Plan of Care Start Date 12/29/21 Plan of Care End Date 02/26/22 Therapeutic Interventions Therapeutic Interventions Aquatic Therapy,Home Exercise Program,Manual Therapy, Neuromuscular Re-education, Patient/Caregiver Education, Self-Care/Home Management,Soft Tissue Mobilization, Therapeutic Activities, Therapeutic Exercises Modalities Cold Pack/Ice Massage,Hot Packs Next Visit Focus/Plan Next Note Type Treatment Note Next Visit Plan Hip strengthening, flexibility , STM
--- NOTE | 2022-01-06 15:56 | PT.OTN ---
Current Diagnoses Sciatica, right side (01/06/22) Lumbago with sciatica, right side (01/06/22) Physical Therapy Treatment Note PT-OP-A Visit Information Start: 12/29/21 16:43 Freq: Status: Active Protocol: Document 01/06/22 15:15 DCW (Rec: 01/06/22 15:56 DCW [id number]) Out-Patient Physical Therapy Visit Information Visit Information Visit Type Treatment Note Visit Start Time 15:15 Visit Stop Time 16:00 Total Visit Minutes 45 Visit Number 3 Number of LITIGATION LEGAL SECRETARY Visits 0 Evaluation Information Evaluation Date 12/29/21 PT-OP-B Current Condition Start: 12/29/21 16:43 Freq: Status: Active Protocol: Document 12/29/21 15:25 DCW (Rec: 12/29/21 17:06 DCW [id number]) Current Condition History of Current Condition Onset Date 12 year history Current Complaints Low back and right leg pain History of Current Condition Pt is an 86 year old male very well known to this clinic reporting a multi-year history of low back and right leg pain. Pt reports that 11-12 years ago, he had a lumbar fusion, he believes he had four vertebrae fused, and ever since that time, he has had fairly consistent pain in his low back and into his right leg. Pt thinks that at the time, he was told that the fusion may have resulted in there not being enough space for his nerves to exit his back. Notes he currently gets back spasmsif he walks more than 100 yards. Standing straight up causes pain, but he feels better with sitting. Has recently undergone bilateral TKAs, which he was seen here for PT after both surgeries. Treatment Goals Patient/Caregiver Goals Decrease radicular right leg pain PT-OP-C Subjective Start: 12/29/21 16:43 Freq: Status: Active Protocol: Document 01/06/22 15:15 DCW (Rec: 01/06/22 15:56 DCW [id number]) OP-PT Subjective Patient Comments Patient Comments I've felt better the past two days than what I have in a long time. PT-OP-F Manual Assessment Start: 12/29/21 16:43 Freq: Status: Active Protocol: Document 12/29/21 15:25 DCW (Rec: 12/29/21 17:06 DCW [id number]) Manual Assessments Soft Tissue Assessment Soft Tissue Mobility Assessment Moderate tone in right piriformis PT-OP-K Range of Motion Start: 12/29/21 16:43 Freq: Status: Active Protocol: Document 12/29/21 15:25 DCW (Rec: 12/29/21 17:06 DCW [id number]) Hip Goniometric Range of Motion Hip ROM Limitations Hip ROM Limitations Soft Tissue Tightness Comments Right hip PROM limited during SLR and with IR due to sof ttissue tightness PT-OP-L Special Tests Start: 12/29/21 16:43 Freq: Status: Active Protocol: Document 12/29/21 15:25 DCW (Rec: 12/29/21 17:06 DCW [id number]) Special Tests Lumbar Spine Special Tests ELAINE Test Results Negative Straight Leg Raise Test Results Negative Slump Test Results Negative A-P Shearing Test Results Negative Hip Special Tests Piriformis Test Results R stiffness, mild soreness PT-OP-M Strength Start: 12/29/21 16:43 Freq: Status: Active Protocol: Document 12/29/21 15:25 DCW (Rec: 12/29/21 17:06 DCW [id number]) Hip Strength Hip Manual Muscle Testing Right Flexion (L2) 4 Good Abduction 4 Good Adduction 4 Good External Rotation 4 Good Internal Rotation 4 Good PT-OP-Q Treatments Start: 12/29/21 16:43 Freq: Status: Active Protocol: Document 01/06/22 15:15 DCW (Rec: 01/06/22 15:56 DCW [id number]) Therapeutic Exercises Supine Exercises 1 Supine Exercise Name Piriformis stretch Side right Comments knee to opposite shoulder Manual Therapy Treatment Soft Tissue Mobilization 1 Body Location QL, Piriformis bilateral Mobilization Type Strumming,Sustained Pressure Intensity/Depth Deep Body Position Sidelying PT-OP-T Assessment and Plan Start: 12/29/21 16:43 Freq: Status: Active Protocol: Document 01/06/22 15:15 DCW (Rec: 01/06/22 15:56 DCW [id number]) Physical Therapy Assessment Impairments Impairments Functional Activities, Functional Mobility,Pain,Soft Tissue Mobility,Strength Goals Two Impairment Pt unable to ambulate more than 300 feet without back pain Snf Goal (LTG) Pt to demonstrate ability to ambulate at least 800 feet during a 6 MWT without increased low back or leg pain LTG Duration 02/26/22 One Impairment Pt does not have an appropriate home exercise program Short Term Goal (STG) Pt to be independent and compliant with an appropriate HEP STG Duration 01/26/22 Assessment Summary Assessment Pt already making good progress, noticeable decrease in tone along piriformis and QL. Physical Therapy Plan Frequency and Duration Frequency of Treatment 2x/Week Duration of Treatment Two months Plan of Care Start Date 12/29/21 Plan of Care End Date 02/26/22 Therapeutic Interventions Therapeutic Interventions Aquatic Therapy,Home Exercise Program,Manual Therapy, Neuromuscular Re-education, Patient/Caregiver Education, Self-Care/Home Management,Soft Tissue Mobilization, Therapeutic Activities, Therapeutic Exercises Modalities Cold Pack/Ice Massage,Hot Packs Next Visit Focus/Plan Next Note Type Treatment Note Next Visit Plan Hip strengthening, flexibility , STM
--- NOTE | 2022-01-11 15:13 | PT.OTN ---
Current Diagnoses Sciatica, right side (01/11/22) Lumbago with sciatica, right side (01/11/22) Physical Therapy Treatment Note PT-OP-A Visit Information Start: 12/29/21 16:43 Freq: Status: Active Protocol: Document 01/11/22 14:33 DCW (Rec: 01/11/22 15:13 DCW [id number]) Out-Patient Physical Therapy Visit Information Visit Information Visit Type Treatment Note Visit Start Time 14:33 Visit Stop Time 15:15 Total Visit Minutes 42 Visit Number 4 Number of SUPERVISOR LABOR GANG Visits 0 Evaluation Information Evaluation Date 12/29/21 PT-OP-B Current Condition Start: 12/29/21 16:43 Freq: Status: Active Protocol: Document 12/29/21 15:25 DCW (Rec: 12/29/21 17:06 DCW [id number]) Current Condition History of Current Condition Onset Date 12 year history Current Complaints Low back and right leg pain History of Current Condition Pt is an 86 year old male very well known to this clinic reporting a multi-year history of low back and right leg pain. Pt reports that 11-12 years ago, he had a lumbar fusion, he believes he had four vertebrae fused, and ever since that time, he has had fairly consistent pain in his low back and into his right leg. Pt thinks that at the time, he was told that the fusion may have resulted in there not being enough space for his nerves to exit his back. Notes he currently gets back spasmsif he walks more than 100 yards. Standing straight up causes pain, but he feels better with sitting. Has recently undergone bilateral TKAs, which he was seen here for PT after both surgeries. Treatment Goals Patient/Caregiver Goals Decrease radicular right leg pain PT-OP-C Subjective Start: 12/29/21 16:43 Freq: Status: Active Protocol: Document 01/11/22 14:33 DCW (Rec: 01/11/22 15:13 DCW [id number]) OP-PT Subjective Patient Comments Patient Comments Pt feeling pretty good recently, PT-OP-F Manual Assessment Start: 12/29/21 16:43 Freq: Status: Active Protocol: Document 12/29/21 15:25 DCW (Rec: 12/29/21 17:06 DCW [id number]) Manual Assessments Soft Tissue Assessment Soft Tissue Mobility Assessment Moderate tone in right piriformis PT-OP-K Range of Motion Start: 12/29/21 16:43 Freq: Status: Active Protocol: Document 12/29/21 15:25 DCW (Rec: 12/29/21 17:06 DCW [id number]) Hip Goniometric Range of Motion Hip ROM Limitations Hip ROM Limitations Soft Tissue Tightness Comments Right hip PROM limited during SLR and with IR due to sof ttissue tightness PT-OP-L Special Tests Start: 12/29/21 16:43 Freq: Status: Active Protocol: Document 12/29/21 15:25 DCW (Rec: 12/29/21 17:06 DCW [id number]) Special Tests Lumbar Spine Special Tests ELAINE Test Results Negative Straight Leg Raise Test Results Negative Slump Test Results Negative A-P Shearing Test Results Negative Hip Special Tests Piriformis Test Results R stiffness, mild soreness PT-OP-M Strength Start: 12/29/21 16:43 Freq: Status: Active Protocol: Document 12/29/21 15:25 DCW (Rec: 12/29/21 17:06 DCW [id number]) Hip Strength Hip Manual Muscle Testing Right Flexion (L2) 4 Good Abduction 4 Good Adduction 4 Good External Rotation 4 Good Internal Rotation 4 Good PT-OP-Q Treatments Start: 12/29/21 16:43 Freq: Status: Active Protocol: Document 01/11/22 14:33 DCW (Rec: 01/11/22 15:13 DCW [id number]) Gym Equipment Therapeutic Ball 1 Exercise Details LTR Ball Size/Color Red - 55 cm Body Position Supine Therapeutic Exercises Supine Exercises 2 Supine Exercise Name Hamstring stretch Side bilateral 1 Supine Exercise Name Piriformis stretch Side bilateral Comments knee to opposite shoulder Manual Therapy Treatment Soft Tissue Mobilization 1 Body Location QL, Piriformis bilateral Mobilization Type Strumming,Sustained Pressure Intensity/Depth Deep Body Position Sidelying PT-OP-T Assessment and Plan Start: 12/29/21 16:43 Freq: Status: Active Protocol: Document 01/11/22 14:33 DCW (Rec: 01/11/22 15:13 DCW [id number]) Physical Therapy Assessment Impairments Impairments Functional Activities, Functional Mobility,Pain,Soft Tissue Mobility,Strength Goals Two Impairment Pt unable to ambulate more than 300 feet without back pain Analytics Associate Goal (LTG) Pt to demonstrate ability to ambulate at least 800 feet during a 6 MWT without increased low back or leg pain LTG Duration 02/26/22 One Impairment Pt does not have an appropriate home exercise program Short Term Goal (STG) Pt to be independent and compliant with an appropriate HEP STG Duration 01/26/22 Assessment Summary Assessment Pt moving better today, much easier time getting on and off the plinth. Physical Therapy Plan Frequency and Duration Frequency of Treatment 2x/Week Duration of Treatment Two months Plan of Care Start Date 12/29/21 Plan of Care End Date 02/26/22 Therapeutic Interventions Therapeutic Interventions Aquatic Therapy,Home Exercise Program,Manual Therapy, Neuromuscular Re-education, Patient/Caregiver Education, Self-Care/Home Management,Soft Tissue Mobilization, Therapeutic Activities, Therapeutic Exercises Modalities Cold Pack/Ice Massage,Hot Packs Next Visit Focus/Plan Next Note Type Treatment Note Next Visit Plan Hip strengthening, flexibility , STM
--- NOTE | 2022-01-13 15:16 | PT.OTN ---
Current Diagnoses Sciatica, right side (01/13/22) Lumbago with sciatica, right side (01/13/22) Physical Therapy Treatment Note PT-OP-A Visit Information Start: 12/29/21 16:43 Freq: Status: Active Protocol: Document 01/13/22 14:32 DCW (Rec: 01/13/22 15:16 DCW [id number]) Out-Patient Physical Therapy Visit Information Visit Information Visit Type Treatment Note Visit Start Time 14:32 Visit Stop Time 15:15 Total Visit Minutes 43 Visit Number 5 Number of VETERINARY ANATOMIST Visits 0 Evaluation Information Evaluation Date 12/29/21 PT-OP-B Current Condition Start: 12/29/21 16:43 Freq: Status: Active Protocol: Document 12/29/21 15:25 DCW (Rec: 12/29/21 17:06 DCW [id number]) Current Condition History of Current Condition Onset Date 12 year history Current Complaints Low back and right leg pain History of Current Condition Pt is an 86 year old male very well known to this clinic reporting a multi-year history of low back and right leg pain. Pt reports that 11-12 years ago, he had a lumbar fusion, he believes he had four vertebrae fused, and ever since that time, he has had fairly consistent pain in his low back and into his right leg. Pt thinks that at the time, he was told that the fusion may have resulted in there not being enough space for his nerves to exit his back. Notes he currently gets back spasmsif he walks more than 100 yards. Standing straight up causes pain, but he feels better with sitting. Has recently undergone bilateral TKAs, which he was seen here for PT after both surgeries. Treatment Goals Patient/Caregiver Goals Decrease radicular right leg pain PT-OP-C Subjective Start: 12/29/21 16:43 Freq: Status: Active Protocol: Document 01/13/22 14:32 DCW (Rec: 01/13/22 15:16 DCW [id number]) OP-PT Subjective Patient Comments Patient Comments Pt notes he was sore through his hamstrings the day after his last appointment. PT-OP-F Manual Assessment Start: 12/29/21 16:43 Freq: Status: Active Protocol: Document 12/29/21 15:25 DCW (Rec: 12/29/21 17:06 DCW [id number]) Manual Assessments Soft Tissue Assessment Soft Tissue Mobility Assessment Moderate tone in right piriformis PT-OP-K Range of Motion Start: 12/29/21 16:43 Freq: Status: Active Protocol: Document 12/29/21 15:25 DCW (Rec: 12/29/21 17:06 DCW [id number]) Hip Goniometric Range of Motion Hip ROM Limitations Hip ROM Limitations Soft Tissue Tightness Comments Right hip PROM limited during SLR and with IR due to sof ttissue tightness PT-OP-L Special Tests Start: 12/29/21 16:43 Freq: Status: Active Protocol: Document 12/29/21 15:25 DCW (Rec: 12/29/21 17:06 DCW [id number]) Special Tests Lumbar Spine Special Tests ELAINE Test Results Negative Straight Leg Raise Test Results Negative Slump Test Results Negative A-P Shearing Test Results Negative Hip Special Tests Piriformis Test Results R stiffness, mild soreness PT-OP-M Strength Start: 12/29/21 16:43 Freq: Status: Active Protocol: Document 12/29/21 15:25 DCW (Rec: 12/29/21 17:06 DCW [id number]) Hip Strength Hip Manual Muscle Testing Right Flexion (L2) 4 Good Abduction 4 Good Adduction 4 Good External Rotation 4 Good Internal Rotation 4 Good PT-OP-Q Treatments Start: 12/29/21 16:43 Freq: Status: Active Protocol: Document 01/13/22 14:32 DCW (Rec: 01/13/22 15:16 DCW [id number]) Gym Equipment Therapeutic Ball 1 Exercise Details LTR Ball Size/Color Red - 55 cm Body Position Supine Therapeutic Exercises Supine Exercises 2 Supine Exercise Name Hamstring stretch Side bilateral 1 Supine Exercise Name Piriformis stretch Side bilateral Comments knee to opposite shoulder Manual Therapy Treatment Soft Tissue Mobilization 1 Body Location QL, Piriformis bilateral Mobilization Type Strumming,Sustained Pressure Intensity/Depth Deep Body Position Sidelying PT-OP-T Assessment and Plan Start: 12/29/21 16:43 Freq: Status: Active Protocol: Document 01/13/22 14:32 DCW (Rec: 01/13/22 15:16 DCW [id number]) Physical Therapy Assessment Impairments Impairments Functional Activities, Functional Mobility,Pain,Soft Tissue Mobility,Strength Goals Two Impairment Pt unable to ambulate more than 300 feet without back pain Fpc Goal (LTG) Pt to demonstrate ability to ambulate at least 800 feet during a 6 MWT without increased low back or leg pain LTG Duration 02/26/22 One Impairment Pt does not have an appropriate home exercise program Short Term Goal (STG) Pt to be independent and compliant with an appropriate HEP STG Duration 01/26/22 Assessment Summary Assessment Pt still experiencing significant pain with palpation of low back, but reports he is feeling much better. Pt would like to finish scheduled appts next week, and then discharge, but admits he'll probably be back in a month or two, I just want to see how I do with PT for a while. Physical Therapy Plan Frequency and Duration Frequency of Treatment 2x/Week Duration of Treatment Two months Plan of Care Start Date 12/29/21 Plan of Care End Date 02/26/22 Therapeutic Interventions Therapeutic Interventions Aquatic Therapy,Home Exercise Program,Manual Therapy, Neuromuscular Re-education, Patient/Caregiver Education, Self-Care/Home Management,Soft Tissue Mobilization, Therapeutic Activities, Therapeutic Exercises Modalities Cold Pack/Ice Massage,Hot Packs Next Visit Focus/Plan Next Note Type Treatment Note Next Visit Plan Hip strengthening, flexibility , STM
--- NOTE | 2022-01-19 15:11 | PT.OTN ---
Current Diagnoses Sciatica, right side (01/19/22) Lumbago with sciatica, right side (01/19/22) Physical Therapy Treatment Note PT-OP-A Visit Information Start: 12/29/21 16:43 Freq: Status: Active Protocol: Document 01/19/22 14:31 DCW (Rec: 01/19/22 15:11 DCW [id number]) Out-Patient Physical Therapy Visit Information Visit Information Visit Type Treatment Note Visit Start Time 14:31 Visit Stop Time 15:15 Total Visit Minutes 44 Visit Number 6 Number of INJECTION MOLDING MACHINE OPERATOR Visits 0 Evaluation Information Evaluation Date 12/29/21 PT-OP-B Current Condition Start: 12/29/21 16:43 Freq: Status: Active Protocol: Document 12/29/21 15:25 DCW (Rec: 12/29/21 17:06 DCW [id number]) Current Condition History of Current Condition Onset Date 12 year history Current Complaints Low back and right leg pain History of Current Condition Pt is an 86 year old male very well known to this clinic reporting a multi-year history of low back and right leg pain. Pt reports that 11-12 years ago, he had a lumbar fusion, he believes he had four vertebrae fused, and ever since that time, he has had fairly consistent pain in his low back and into his right leg. Pt thinks that at the time, he was told that the fusion may have resulted in there not being enough space for his nerves to exit his back. Notes he currently gets back spasmsif he walks more than 100 yards. Standing straight up causes pain, but he feels better with sitting. Has recently undergone bilateral TKAs, which he was seen here for PT after both surgeries. Treatment Goals Patient/Caregiver Goals Decrease radicular right leg pain PT-OP-C Subjective Start: 12/29/21 16:43 Freq: Status: Active Protocol: Document 01/19/22 14:31 DCW (Rec: 01/19/22 15:11 DCW [id number]) OP-PT Subjective Patient Comments Patient Comments The last three days, I had a lot of nerve pain down my right leg. PT-OP-F Manual Assessment Start: 12/29/21 16:43 Freq: Status: Active Protocol: Document 12/29/21 15:25 DCW (Rec: 12/29/21 17:06 DCW [id number]) Manual Assessments Soft Tissue Assessment Soft Tissue Mobility Assessment Moderate tone in right piriformis PT-OP-K Range of Motion Start: 12/29/21 16:43 Freq: Status: Active Protocol: Document 12/29/21 15:25 DCW (Rec: 12/29/21 17:06 DCW [id number]) Hip Goniometric Range of Motion Hip ROM Limitations Hip ROM Limitations Soft Tissue Tightness Comments Right hip PROM limited during SLR and with IR due to sof ttissue tightness PT-OP-L Special Tests Start: 12/29/21 16:43 Freq: Status: Active Protocol: Document 12/29/21 15:25 DCW (Rec: 12/29/21 17:06 DCW [id number]) Special Tests Lumbar Spine Special Tests ELAINE Test Results Negative Straight Leg Raise Test Results Negative Slump Test Results Negative A-P Shearing Test Results Negative Hip Special Tests Piriformis Test Results R stiffness, mild soreness PT-OP-M Strength Start: 12/29/21 16:43 Freq: Status: Active Protocol: Document 12/29/21 15:25 DCW (Rec: 12/29/21 17:06 DCW [id number]) Hip Strength Hip Manual Muscle Testing Right Flexion (L2) 4 Good Abduction 4 Good Adduction 4 Good External Rotation 4 Good Internal Rotation 4 Good PT-OP-Q Treatments Start: 12/29/21 16:43 Freq: Status: Active Protocol: Document 01/19/22 14:31 DCW (Rec: 01/19/22 15:11 DCW [id number]) Gym Equipment Therapeutic Ball 1 Exercise Details LTR Ball Size/Color Red - 55 cm Body Position Supine Therapeutic Exercises Supine Exercises 2 Supine Exercise Name Hamstring stretch Side bilateral 1 Supine Exercise Name Piriformis stretch Side bilateral Comments knee to opposite shoulder Manual Therapy Treatment Soft Tissue Mobilization 1 Body Location QL, Piriformis bilateral Mobilization Type Strumming,Sustained Pressure Intensity/Depth Deep Body Position Sidelying PT-OP-T Assessment and Plan Start: 12/29/21 16:43 Freq: Status: Active Protocol: Document 01/19/22 14:31 DCW (Rec: 01/19/22 15:11 DCW [id number]) Physical Therapy Assessment Impairments Impairments Functional Activities, Functional Mobility,Pain,Soft Tissue Mobility,Strength Goals Two Impairment Pt unable to ambulate more than 300 feet without back pain Multi Disciplined Language Analyst Goal (LTG) Pt to demonstrate ability to ambulate at least 800 feet during a 6 MWT without increased low back or leg pain LTG Duration 02/26/22 One Impairment Pt does not have an appropriate home exercise program Short Term Goal (STG) Pt to be independent and compliant with an appropriate HEP STG Duration 01/26/22 Assessment Summary Assessment Pt still leaning toward discharge following his last scheduled visit, I just have a pretty full calender right now. Physical Therapy Plan Frequency and Duration Frequency of Treatment 2x/Week Duration of Treatment Two months Plan of Care Start Date 12/29/21 Plan of Care End Date 02/26/22 Therapeutic Interventions Therapeutic Interventions Aquatic Therapy,Home Exercise Program,Manual Therapy, Neuromuscular Re-education, Patient/Caregiver Education, Self-Care/Home Management,Soft Tissue Mobilization, Therapeutic Activities, Therapeutic Exercises Modalities Cold Pack/Ice Massage,Hot Packs Next Visit Focus/Plan Next Note Type Treatment Note Next Visit Plan Hip strengthening, flexibility , STM
--- NOTE | 2022-01-20 14:59 | PT.OPDS ---
Current Diagnoses Sciatica, right side (01/20/22) Lumbago with sciatica, right side (01/20/22) Visit Care Team Role Provider Type Oscar Tompkins MD Attending Provider Physician Family Provider Primary Care Provider Referring Provider Specialty: Family Practice Address: [facility] [place], [address] Email: [email or web address] Visit Number Visit Number 7 Discharge Summary PT-OP-B Current Condition Start: 12/29/21 16:43 Freq: Status: Active Protocol: Document 12/29/21 15:25 DCW (Rec: 12/29/21 17:06 DCW [id number]) Current Condition History of Current Condition Onset Date 12 year history Current Complaints Low back and right leg pain History of Current Condition Pt is an 86 year old male very well known to this clinic reporting a multi-year history of low back and right leg pain. Pt reports that 11-12 years ago, he had a lumbar fusion, he believes he had four vertebrae fused, and ever since that time, he has had fairly consistent pain in his low back and into his right leg. Pt thinks that at the time, he was told that the fusion may have resulted in there not being enough space for his nerves to exit his back. Notes he currently gets back spasmsif he walks more than 100 yards. Standing straight up causes pain, but he feels better with sitting. Has recently undergone bilateral TKAs, which he was seen here for PT after both surgeries. Treatment Goals Patient/Caregiver Goals Decrease radicular right leg pain PT-OP-C Subjective Start: 12/29/21 16:43 Freq: Status: Active Protocol: Document 01/20/22 14:30 DCW (Rec: 01/20/22 14:57 DCW [id number]) OP-PT Subjective Patient Comments Patient Comments I woke up at about 3:30, coiuldn't get back to sleep, so I'm not too alert right now . PT-OP-F Manual Assessment Start: 12/29/21 16:43 Freq: Status: Active Protocol: Document 12/29/21 15:25 DCW (Rec: 12/29/21 17:06 DCW [id number]) Manual Assessments Soft Tissue Assessment Soft Tissue Mobility Assessment Moderate tone in right piriformis PT-OP-K Range of Motion Start: 12/29/21 16:43 Freq: Status: Active Protocol: Document 12/29/21 15:25 DCW (Rec: 12/29/21 17:06 DCW [id number]) Hip Goniometric Range of Motion Hip ROM Limitations Hip ROM Limitations Soft Tissue Tightness Comments Right hip PROM limited during SLR and with IR due to sof ttissue tightness PT-OP-L Special Tests Start: 12/29/21 16:43 Freq: Status: Active Protocol: Document 12/29/21 15:25 DCW (Rec: 12/29/21 17:06 DCW [id number]) Special Tests Lumbar Spine Special Tests ELAINE Test Results Negative Straight Leg Raise Test Results Negative Slump Test Results Negative A-P Shearing Test Results Negative Hip Special Tests Piriformis Test Results R stiffness, mild soreness PT-OP-M Strength Start: 12/29/21 16:43 Freq: Status: Active Protocol: Document 12/29/21 15:25 DCW (Rec: 12/29/21 17:06 DCW [id number]) Hip Strength Hip Manual Muscle Testing Right Flexion (L2) 4 Good Abduction 4 Good Adduction 4 Good External Rotation 4 Good Internal Rotation 4 Good PT-OP-T Assessment and Plan Start: 12/29/21 16:43 Freq: Status: Active Protocol: Document 01/20/22 14:30 DCW (Rec: 01/20/22 14:57 DCW [id number]) Physical Therapy Assessment Impairments Impairments Functional Activities, Functional Mobility,Pain,Soft Tissue Mobility,Strength Goals Two Impairment Pt unable to ambulate more than 300 feet without back pain Floodplain Manager Goal (LTG) Pt to demonstrate ability to ambulate at least 800 feet during a 6 MWT without increased low back or leg pain LTG Duration 02/26/22 One Impairment Pt does not have an appropriate home exercise program Short Term Goal (STG) Pt to be independent and compliant with an appropriate HEP STG Duration 01/26/22 Assessment Summary Assessment Pt comfortable with discharge at this time. He does feel better overall, and is just too busy to continue therapy. Understands he will nees a new referral in order to return Physical Therapy Plan Frequency and Duration Frequency of Treatment 2x/Week Duration of Treatment Two months Plan of Care Start Date 12/29/21 Plan of Care End Date 02/26/22 Therapeutic Interventions Therapeutic Interventions Aquatic Therapy,Home Exercise Program,Manual Therapy, Neuromuscular Re-education, Patient/Caregiver Education, Self-Care/Home Management,Soft Tissue Mobilization, Therapeutic Activities, Therapeutic Exercises Modalities Cold Pack/Ice Massage,Hot Packs Discharge Physical Therapy Discharge Reasons Patient Request Next Visit Focus/Plan Next Note Type Discharge Summary
== END 2022-01-24 13:14 ==
LOC: PHYS 14:30
PROVIDERS: Family Provider Family Medicine; PCP Family Medicine; Referring Provider Family Medicine; Visit Provider Family Medicine
DX: M54.31 Sciatica, right side (principal); M54.41 Lumbago with sciatica, right side
CPT/HCPCS: 97110; 97140; 97162

== ENCOUNTER → 2022-02-22 09:35 | Outpatient (CLI) | payer MEDICARE, OTHER, SELFPAY ==
[2022-02-22 11:20] LABS: COVID-19 CEPHEID PCR (VTM/NP) Negative (Negative)
== END ==
PROVIDERS: Family Provider Family Medicine; PCP Family Medicine; Visit Provider Family Medicine Sleep Medicine
DX: Z20.822 Contact with and (suspected) exposure to COVID-19 (principal)
CPT/HCPCS: C9803; U0003; U0005

== ENCOUNTER → 2022-02-22 15:05 | Outpatient (CLI) | payer MEDICARE, OTHER, SELFPAY ==
--- NOTE | 2022-02-22 15:09 | DI.CT.S_ITS ---
PROCEDURE: CT LUMBAR SPINE WO CON INDICATIONS: Spinal stenosis, lumbar region TECHNIQUE: Noncontrast 3 mm thick sections acquired from the T12 level to the sacrum. Sagittal and coronal reformats were constructed. For radiation dose reduction, the following was used: automated exposure control. COMPARISON: None. FINDINGS: Image quality: Excellent. Bones: Vertebral body height and alignment is maintained. There has been a L3, L4 and L5 decompressive laminectomy and posterolateral fusion supported by posterior cha and screw instrumentation extending from L3-L5. Incidental partial sacralization of the L5 vertebral body T12-L1: Disc space narrowing with circumferential disc bulge and vacuum disc phenomena without central or foraminal stenosis L1-L2: Disc space narrowing with degenerative endplate changes, vacuum disc phenomena and circumferential disc bulge present. Mild central stenosis. Moderate bilateral foraminal stenosis. L2-L3: Disc space narrowing with vacuum disc phenomena and posterior disc bulge results in mild central stenosis. Moderate bilateral foraminal stenosis. L3-L4: Discectomy and fusion with posterior decompressive laminectomy. No central stenosis. No foraminal stenosis L4-L5: Discectomy and fusion with posterior disc press of laminotomy. No central stenosis. No foraminal stenosis. L5-S1: Disc space narrowing present. No central or foraminal stenosis. Soft tissues: No retroperitoneal masses or hematomas. Visualized aorta is normal in caliber. IMPRESSION: Discectomy with interbody and posterolateral fusion at L 4 5 and L5-S1 associated with decompressive laminectomies and posterior cha and screw instrumentation. Multilevel degenerative disc disease and arthropathy results in varying degrees of central and foraminal stenosis including bilateral foraminal stenosis at L2-3. Partial sacralization of the L5 vertebral body. Approved by: Milind Henley M.D. on 02/22/2022 at 17:11
== END ==
PROVIDERS: Family Provider Family Medicine; PCP Family Medicine; Referring Provider Family Medicine; Visit Provider Family Medicine
DX: M48.061 Spinal stenosis, lumbar region without neurogenic claudication (principal); M51.16 Intervertebral disc disorders with radiculopathy, lumbar region; M47.26 Other spondylosis with radiculopathy, lumbar region; M43.27 Fusion of spine, lumbosacral region; Z98.1 Arthrodesis status; Z20.822 Contact with and (suspected) exposure to COVID-19
CPT/HCPCS: 72131; C9803; U0003; U0005

== ENCOUNTER → 2022-04-07 07:03 | Outpatient (CLI) | payer MEDICARE, OTHER, SELFPAY ==
[2022-04-07 08:34] LABS: Add Manual Diff / Slide Review NO; Basophils Absolute Auto 0 /uL (0-100); Basophils Percent Auto 0.5 % (0-2); Eosinophils Absolute Auto 300 /uL (0-450); Eosinophils Percent Auto 4.9 % (2-4); Hematocrit 34.4 % (41-53); Hemoglobin 11.9 g/dL (13.5-17.5); Lymphocytes Absolute Auto 2100 /uL (1100-4500); Mean Corpuscular HGB Conc 34.5 % (30-36); Mean Corpuscular Hemoglobin 33.5 PG (26-34); Mean Corpuscular Volume 97.1 fL (80-100); Monocytes Absolute Auto 500 /uL (0-900); Monocytes Percent Auto 8.1 % (3-14); Neutrophils Absolute Auto 3500 /uL (1500-7000); Neutrophils Percent Auto 53.5 % (50-75); Platelet Count 309 X10^3/uL (150-400); Red Blood Cell Count 3.55 X10^6/uL (4.5-5.9); Red Cell Distribution Width 14.1 % (11.6-14.8); White Blood Cell Count 6.5 X10^3/uL (4.5-11.0)
[2022-04-07 09:13] LABS: Alanine Aminotransferase 21 IU/L (<50); Albumin 4.1 g/dL (3.5-5.0); Albumin Globulin Ratio 1.4 (1.0-2.8); Alkaline Phosphatase 61 U/L (38-126); Aspartate Aminotransferase 39 IU/L (17-59); BUN Creatinine Ratio 29.1 (6-22); Bilirubin Total 0.8 mg/dL (0.2-1.3); Blood Urea Nitrogen 32 mg/dL (9-20); Calcium 9.3 mg/dL (8.4-10.2); Carbon Dioxide 27 mmol/L (22-32); Chloride 102 mmol/L (98-107); Cholesterol 165 mg/dL (140-199); Estimated Glomerular Filt Rate > 60 mL/min (>60); Globulin 2.9 g/dL (1.7-4.1); Glucose 76 mg/dL (80-110); HDL Cholesterol 58 mg/dL (40-60); HEMOLYSIS < 15 (0-50); LDL Cholesterol Calculated 82 mg/dL (<100); Potassium 5.1 mmol/L (3.4-5.1); Sodium 135 mmol/L (137-145); Triglycerides 123 mg/dL (35-150)
[2022-04-07 09:42] LABS: TSH w/ Reflex to FT4 0.06 uIU/mL (0.47-4.68)
== END ==
PROVIDERS: Family Provider Family Medicine; PCP Family Medicine; Referring Provider Internal Medicine Cardiovascular Disease; Visit Provider Internal Medicine Cardiovascular Disease
DX: E78.5 Hyperlipidemia, unspecified (principal); I10 Essential (primary) hypertension; I42.9 Cardiomyopathy, unspecified; C73 Malignant neoplasm of thyroid gland
CPT/HCPCS: 36415; 80053; 80061; 84443; 85025

== ENCOUNTER → 2022-10-03 07:25 | Outpatient (CLI) | payer MEDICARE, OTHER, SELFPAY ==
[2022-10-03 09:26] LABS: Add Manual Diff / Slide Review NO; Basophils Absolute Auto 0 /uL (0-100); Basophils Percent Auto 0.4 % (0-2); Eosinophils Absolute Auto 200 /uL (0-450); Eosinophils Percent Auto 3.7 % (2-4); Hematocrit 34.4 % (41-53); Hemoglobin 11.6 g/dL (13.5-17.5); Lymphocytes Absolute Auto 1400 /uL (1100-4500); Lymphocytes Percent Auto 28.8 % (25-40); Mean Corpuscular HGB Conc 33.8 % (30-36); Mean Corpuscular Volume 97.5 fL (80-100); Monocytes Absolute Auto 400 /uL (0-900); Monocytes Percent Auto 8.6 % (3-14); Neutrophils Absolute Auto 2900 /uL (1500-7000); Neutrophils Percent Auto 58.5 % (50-75); Platelet Count 311 X10^3/uL (150-400); Red Blood Cell Count 3.52 X10^6/uL (4.5-5.9); Red Cell Distribution Width 14.9 % (11.6-14.8)
[2022-10-03 09:59] LABS: Alanine Aminotransferase 20 IU/L (<50); Albumin 3.9 g/dL (3.5-5.0); Albumin Globulin Ratio 1.3 (1.0-2.8); Alkaline Phosphatase 60 U/L (38-126); Aspartate Aminotransferase 30 IU/L (17-59); Bilirubin Total 0.7 mg/dL (0.2-1.3); Blood Urea Nitrogen 28 mg/dL (9-20); Calcium 9.4 mg/dL (8.4-10.2); Carbon Dioxide 27 mmol/L (22-32); Chloride 103 mmol/L (98-107); Cholesterol 251 mg/dL (140-199); Estimated Glomerular Filt Rate > 60 mL/min (>60); Glucose 78 mg/dL (80-110); HDL Cholesterol 46 mg/dL (40-60); HEMOLYSIS < 15 (0-50); LDL Cholesterol Calculated 165 mg/dL (<100); Potassium 4.9 mmol/L (3.4-5.1); Sodium 137 mmol/L (137-145); Total Protein 6.9 g/dL (6.3-8.2); Triglycerides 202 mg/dL (35-150)
[2022-10-03 10:15] LABS: TSH w/ Reflex to FT4 0.08 uIU/mL (0.47-4.68)
[2022-10-03 10:42] LABS: Free T4, Direct Thyroxine 1.47 ng/dL (0.78-2.19)
== END ==
PROVIDERS: Family Provider Family Medicine; PCP Family Medicine; Referring Provider Internal Medicine Cardiovascular Disease; Visit Provider Internal Medicine Cardiovascular Disease
DX: I10 Essential (primary) hypertension (principal); E78.5 Hyperlipidemia, unspecified; I42.9 Cardiomyopathy, unspecified; C73 Malignant neoplasm of thyroid gland
CPT/HCPCS: 36415; 80053; 80061; 84439; 84443; 85025

== ENCOUNTER → 2023-02-08 08:58 | Outpatient (CLI) | payer MEDICARE, OTHER, SELFPAY ==
[2023-02-08 10:01] LABS: Alanine Aminotransferase 20 IU/L (<50); Albumin 3.9 g/dL (3.5-5.0); Albumin Globulin Ratio 1.3 (1.0-2.8); Alkaline Phosphatase 71 U/L (38-126); Aspartate Aminotransferase 31 IU/L (17-59); Bilirubin Total 0.7 mg/dL (0.2-1.3); Bilirubin Unconjugated 0.3 mg/dL (0.0-1.1); Cholesterol 176 mg/dL (140-199); HDL Cholesterol 73 mg/dL (40-60); HEMOLYSIS < 15 (0-50); LDL Cholesterol Calculated 82 mg/dL (<100); Total Protein 6.9 g/dL (6.3-8.2); Triglycerides 103 mg/dL (35-150)
== END ==
PROVIDERS: Family Provider Family Medicine; PCP Family Medicine; Referring Provider Internal Medicine Cardiovascular Disease; Visit Provider Internal Medicine Cardiovascular Disease
DX: E78.5 Hyperlipidemia, unspecified (principal); I10 Essential (primary) hypertension
CPT/HCPCS: 36415; 80061; 80076

== ENCOUNTER 2023-02-13 15:15 | Outpatient (RCR) | payer MEDICARE, OTHER, SELFPAY ==
--- NOTE | 2023-01-04 12:00 | PT.OIE ---
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 [place], [facility] Email: [email or web address] Physical Therapy Initial Evaluation PT-OP-A Visit Information Start: 01/04/23 16:42 Freq: Status: Active Protocol: Document 01/04/23 11:15 DCW (Rec: 01/04/23 17:40 DCW [id number]) Out-Patient Physical Therapy Visit Information Visit Information Visit Type Initial Evaluation Visit Start Time 11:15 Visit Stop Time 12:00 Total Visit Minutes 45 Visit Number 1 Number of MICROSOFT ACCESS DEVELOPER Visits 0 Evaluation Information Evaluation Date 01/04/23 PT-OP-B Current Condition Start: 01/04/23 16:42 Freq: Status: Active Protocol: Document 01/04/23 11:15 DCW (Rec: 01/04/23 17:56 DCW [id number]) Current Condition History of Current Condition Onset Date 08/20/23 Current Complaints Right shoulder pain and loss of mobility History of Current Condition Pt is an 87 year old male well known to this clinic presenting with a 4.5 month history of right shoulder pain and stiffness. Pt reports he had a small hole next to his sidewalk, and stepped in it, resulting in a fall, which caused him to significantly injure his shoulder. Pt received a cortisone injection three days later, which helped for a bot, but then he just did a simple reach to grab a broom handle, and he had severe pain which took me to my knees, and has been in significant pain ever since. Reports he is not able to reach up into his cupboards. Treatment Goals Patient/Caregiver Goals I need to reach up into my cupboards. That's where I keep my bourbon. PT-OP-C Subjective Start: 01/04/23 16:42 Freq: Status: Active Protocol: Document 01/04/23 11:15 DCW (Rec: 01/04/23 17:56 DCW [id number]) OP-PT Subjective Patient Comments Patient Comments Pt notes that his left arm is in general not much more mobile, but at least it doesn' t hurt as much as his right, so it doesn't really bother him too much. OP-PT Pain Assessment Location Right Shoulder Intensity 5 Scale Used Numeric (0 - 10) Description Aching,Sharp,Shooting,Stabbing Frequency Constant PT-OP-E Functional Tests Start: 01/04/23 16:42 Freq: Status: Active Protocol: Document 01/04/23 11:15 DCW (Rec: 01/04/23 17:56 DCW [id number]) Functional Tests Apley's Scratch Test Action 2- Left C4 Action 2- Right Occiput Action 3- Left T7 Action 3- Right T11 PT-OP-K Range of Motion Start: 01/04/23 16:42 Freq: Status: Active Protocol: Document 01/04/23 11:15 DCW (Rec: 01/04/23 17:56 DCW [id number]) Shoulder Goniometric Range of Motion Shoulder Right Active Shoulder ROM WFL No Testing Position Sitting Flexion 65 Abduction 53 External Rotation at 0 degrees Abduction 40 Internal Rotation Behind Back (text) T11 Left Active Shoulder ROM WFL No Testing Position Sitting Flexion 150 Abduction 100 External Rotation at 0 degrees Abduction 48 Internal Rotation Behind Back (text) T7 PT-OP-L Special Tests Start: 01/04/23 16:42 Freq: Status: Active Protocol: Document 01/04/23 11:15 DCW (Rec: 01/04/23 17:56 DCW [id number]) Special Tests Shoulder Special Tests Speed's Biceps Test Results Positive R Passive ER Rotator Cuff Test Results Negative Painful Arc Test Results Positive R Lift-Off Rotator Cuff Test Results Positive R Reina Eugene Impingement Test Results Positive R Grind Labrum Test Results Positive R Empty Can Test Results Negative Drop Arm Rotator Cuff Test Results Positive R Clunk Test Test Results Positive R Belly Press Test Results Negative Apprehension Test Test Results Negative AC Joint Compression Test Results Negative PT-OP-M Strength Start: 01/04/23 16:42 Freq: Status: Active Protocol: Document 01/04/23 11:15 DCW (Rec: 01/04/23 17:56 DCW [id number]) Shoulder Strength Shoulder Manual Muscle Testing Right Flexion 2 Poor Abduction (C5) 2 Poor External Rotation 4- Good- Internal Rotation 4+ Good+ Left Flexion 3 Fair Abduction (C5) 3 Fair External Rotation 4- Good- Internal Rotation 4+ Good+ PT-OP-Q Treatments Start: 01/04/23 16:42 Freq: Status: Active Protocol: Document 01/04/23 11:15 DCW (Rec: 01/04/23 17:40 DCW [id number]) Therapeutic Exercises Standing Exercises ER/IR Standing Exercise Name ER/IR Side bilateral Resistance Lv 1 Rows Standing Exercise Name Rows Side bilateral Resistance Lv 1 PT-OP-T Assessment and Plan Start: 01/04/23 16:42 Freq: Status: Active Protocol: Document 01/04/23 11:15 DCW (Rec: 01/05/23 09:37 DCW [id number]) Physical Therapy Assessment Rehab Potential Rehabilitation Potential Fair Evaluation Complexity Number of Personal Factors/Comorbidities 3 or More Number of Body Systems Impaired 3 Clinical Presentation at Evaluation Evolving Impairments Impairments Activity Tolerance,Functional Activities,Functional Mobility ,Pain,Posture,ROM,Soft Tissue Mobility,Strength Goals Two Impairment Pt significantly limited with bilateral shoulder ROM, R worse than L Mica Plate Layer Goal (LTG) Pt to show improved flexion and abduction of at least 120? bilaterally in both planes in order to demonstrate ability to get items out of his kitchen cabinets. LTG Duration 04/04/23 One Impairment Pt does not have an appropriate home exercise program Short Term Goal (STG) Pt to be independent and compliant with an appropriate HEP STG Duration 02/01/23 Assessment Summary Assessment Pt presents with signs and symptoms consistent with significant right shoulder dysfunction. Pt substantially limited with ROM, showing flexion of 65? and abduction of 53? in his right shoulder, with poor overall strength and positive special testing ( painful arc, drop arm, lift- off, clunk) that may be suggestive of rotator cuff involvement, likely supraspinatus, as well as potential long head biceps tendon injury. Pt unable to perform any overhead activity, and pain is limiting his ability to sleep at night. If pt does not progress as expected with therapy, further advanced imaging, like a CT scan, may be beneficial for improved diagnosis. Skilled therapeutic intervention should be focused on improving strength and ROM, as well as functional movements like reaching across body for seatbelt buckling and donning/ doffing clothing. Physical Therapy Plan Frequency and Duration Frequency of Treatment 2x/Week Plan of Care Start Date 01/04/23 Plan of Care End Date 04/04/23 Therapeutic Interventions Therapeutic Interventions Home Exercise Program,Joint Mobilizations,Manual Therapy, Neuromuscular Re-education, Patient/Caregiver Education, Self-Care/Home Management,Soft Tissue Mobilization, Therapeutic Activities, Therapeutic Exercises Modalities Cold Pack/Ice Massage,Hot Packs Next Visit Focus/Plan Next Note Type Treatment Note Next Visit Plan UE strengthening, STM, joint mobilizations
--- NOTE | 2023-01-04 12:00 | PT.OPPOC ---
Physical, Occupational & Speech Therapy At [facility] Current Diagnoses Primary osteoarthritis, right shoulder (01/04/23) Pain in right shoulder (01/04/23) Stiffness of right shoulder, not elsewhere classified (01/04/23) Visit Care Team Role Provider Type Oscar Tompkins MD Attending Provider Physician Family Provider Primary Care Provider Referring Provider Specialty: [facility] Address: [facility] [place], [place], [facility] Email: [email or web address] Plan Of Care PT-OP-T Assessment and Plan Start: 01/04/23 16:42 Freq: Status: Active Protocol: Document 01/04/23 11:15 DCW (Rec: 01/05/23 09:37 DCW [id number]) Physical Therapy Assessment Rehab Potential Rehabilitation Potential Fair Evaluation Complexity Number of Personal Factors/Comorbidities 3 or More Number of Body Systems Impaired 3 Clinical Presentation at Evaluation Evolving Impairments Impairments Activity Tolerance,Functional Activities,Functional Mobility ,Pain,Posture,ROM,Soft Tissue Mobility,Strength Goals Two Impairment Pt significantly limited with bilateral shoulder ROM, R worse than L Floor Representative Goal (LTG) Pt to show improved flexion and abduction of at least 120? bilaterally in both planes in order to demonstrate ability to get items out of his kitchen cabinets. LTG Duration 04/04/23 One Impairment Pt does not have an appropriate home exercise program Short Term Goal (STG) Pt to be independent and compliant with an appropriate HEP STG Duration 02/01/23 Assessment Summary Assessment Pt presents with signs and symptoms consistent with significant right shoulder dysfunction. Pt substantially limited with ROM, showing flexion of 65? and abduction of 53? in his right shoulder, with poor overall strength and positive special testing ( painful arc, drop arm, lift- off, clunk) that may be suggestive of rotator cuff involvement, likely supraspinatus, as well as potential long head biceps tendon injury. Pt unable to perform any overhead activity, and pain is limiting his ability to sleep at night. If pt does not progress as expected with therapy, further advanced imaging, like a CT scan, may be beneficial for improved diagnosis. Skilled therapeutic intervention should be focused on improving strength and ROM, as well as functional movements like reaching across body for seatbelt buckling and donning/ doffing clothing. Physical Therapy Plan Frequency and Duration Frequency of Treatment 2x/Week Plan of Care Start Date 01/04/23 Plan of Care End Date 04/04/23 Therapeutic Interventions Therapeutic Interventions Home Exercise Program,Joint Mobilizations,Manual Therapy, Neuromuscular Re-education, Patient/Caregiver Education, Self-Care/Home Management,Soft Tissue Mobilization, Therapeutic Activities, Therapeutic Exercises Modalities Cold Pack/Ice Massage,Hot Packs Next Visit Focus/Plan Next Note Type Treatment Note Next Visit Plan UE strengthening, STM, joint mobilizations Plan of Care Dates Plan of Care Start Date 01/04/23 Plan of Care End Date 04/04/23 Electronically Signed by: Kahlil Patel, PT 01/05/23 0938 If you are in agreement with this Plan of Care, please return a signed and dated copy. I have reviewed this Plan of Care and certify that the skilled therapy services above are required to meet the patient?s needs. Physician Signature Date Printed Name and Credentials Clinical Instructor Signature Printed Name and Credentials
--- NOTE | 2023-01-13 12:27 | PT.OTN ---
Current Diagnoses Primary osteoarthritis, right shoulder (01/13/23) Pain in right shoulder (01/13/23) Stiffness of right shoulder, not elsewhere classified (01/13/23) Physical Therapy Treatment Note PT-OP-A Visit Information Start: 01/04/23 16:42 Freq: Status: Active Protocol: Document 01/13/23 11:42 NBM (Rec: 01/13/23 12:26 NBM [id number]) Out-Patient Physical Therapy Visit Information Visit Information Visit Type Initial Evaluation Visit Start Time 11:37 Visit Stop Time 12:20 Total Visit Minutes 43 Visit Number 2 Number of LATHE SET UP OPERATOR Visits 1 PT-OP-B Current Condition Start: 01/04/23 16:42 Freq: Status: Active Protocol: Document 01/04/23 11:15 DCW (Rec: 01/04/23 17:56 DCW [id number]) Current Condition History of Current Condition Onset Date 08/20/23 Current Complaints Right shoulder pain and loss of mobility History of Current Condition Pt is an 87 year old male well known to this clinic presenting with a 4.5 month history of right shoulder pain and stiffness. Pt reports he had a small hole next to his sidewalk, and stepped in it, resulting in a fall, which caused him to significantly injure his shoulder. Pt received a cortisone injection three days later, which helped for a bot, but then he just did a simple reach to grab a broom handle, and he had severe pain which took me to my knees, and has been in significant pain ever since. Reports he is not able to reach up into his cupboards. Treatment Goals Patient/Caregiver Goals I need to reach up into my cupboards. That's where I keep my bourbon. PT-OP-C Subjective Start: 01/04/23 16:42 Freq: Status: Active Protocol: Document 01/13/23 11:42 NBM (Rec: 01/13/23 12:26 NBM [id number]) OP-PT Subjective Patient Comments Patient Comments Pt states his shoulder is doing much better since starting PT. He broke the blue theraband he was given. PT-OP-E Functional Tests Start: 01/04/23 16:42 Freq: Status: Active Protocol: Document 01/04/23 11:15 DCW (Rec: 01/04/23 17:56 DCW [id number]) Functional Tests Apley's Scratch Test Action 2- Left C4 Action 2- Right Occiput Action 3- Left T7 Action 3- Right T11 PT-OP-K Range of Motion Start: 01/04/23 16:42 Freq: Status: Active Protocol: Document 01/04/23 11:15 DCW (Rec: 01/04/23 17:56 DCW [id number]) Shoulder Goniometric Range of Motion Shoulder Right Active Shoulder ROM WFL No Testing Position Sitting Flexion 65 Abduction 53 External Rotation at 0 degrees Abduction 40 Internal Rotation Behind Back (text) T11 Left Active Shoulder ROM WFL No Testing Position Sitting Flexion 150 Abduction 100 External Rotation at 0 degrees Abduction 48 Internal Rotation Behind Back (text) T7 PT-OP-L Special Tests Start: 01/04/23 16:42 Freq: Status: Active Protocol: Document 01/04/23 11:15 DCW (Rec: 01/04/23 17:56 DCW [id number]) Special Tests Shoulder Special Tests Speed's Biceps Test Results Positive R Passive ER Rotator Cuff Test Results Negative Painful Arc Test Results Positive R Lift-Off Rotator Cuff Test Results Positive R Reina Eugene Impingement Test Results Positive R Grind Labrum Test Results Positive R Empty Can Test Results Negative Drop Arm Rotator Cuff Test Results Positive R Clunk Test Test Results Positive R Belly Press Test Results Negative Apprehension Test Test Results Negative AC Joint Compression Test Results Negative PT-OP-M Strength Start: 01/04/23 16:42 Freq: Status: Active Protocol: Document 01/04/23 11:15 DCW (Rec: 01/04/23 17:56 DCW [id number]) Shoulder Strength Shoulder Manual Muscle Testing Right Flexion 2 Poor Abduction (C5) 2 Poor External Rotation 4- Good- Internal Rotation 4+ Good+ Left Flexion 3 Fair Abduction (C5) 3 Fair External Rotation 4- Good- Internal Rotation 4+ Good+ PT-OP-Q Treatments Start: 01/04/23 16:42 Freq: Status: Active Protocol: Document 01/13/23 11:42 NBM (Rec: 01/13/23 12:26 NBM [id number]) Therapeutic Exercises Supine Exercises scapular retraction Supine Exercise Name hooklying, elbows bent to 90deg, press elbows gently into table Reps/Minutes 10x5s Standing Exercises scapular retraction Standing Exercise Name scap squeeze Reps/Minutes x10 Comments tactile cues ER/IR Standing Exercise Name ER/IR Side bilateral Resistance Lv 1 Comments cues for scapular setting, pain-free range Rows Standing Exercise Name Rows Side bilateral Resistance Lv 1 Reps/Minutes x10 Comments cues for scap setting first Manual Therapy Treatment Soft Tissue Mobilization R shoulder Body Location R pec, bicep, deltoid, supraspinatus, UT, LS Mobilization Type Cross-Friction,Rolling, Strumming,Sustained Pressure Intensity/Depth Moderate Body Position Hooklying Comments focus on UT manual cervical tx x30s manual pin and stretch to R UT w/ good feedback response; to R LS produced discomfort. PT-OP-T Assessment and Plan Start: 01/04/23 16:42 Freq: Status: Active Protocol: Document 01/13/23 11:42 [facility] (Rec: 01/13/23 12:26 [facility] [id number]) Physical Therapy Assessment Goals Two Impairment Pt significantly limited with bilateral shoulder ROM, R worse than L Induction Coordination Power Engineer Goal (LTG) Pt to show improved flexion and abduction of at least 120? bilaterally in both planes in order to demonstrate ability to get items out of his kitchen cabinets. LTG Duration 04/04/23 One Impairment Pt does not have an appropriate home exercise program Short Term Goal (STG) Pt to be independent and compliant with an appropriate HEP STG Duration 02/01/23 Assessment Summary Assessment Pt requires initial tactile cues for scapular setting with resisted upper extremity ex's but demonstrates improved self-awareness with repetition and cueing. Palpable tightness to R UT and LS improves with manual therapy. Added to HEP: rows, IR/ER, supine scapular retractions - HO and new Lvl 1 Tb given. Physical Therapy Plan Frequency and Duration Frequency of Treatment 2x/Week Plan of Care Start Date 01/04/23 Plan of Care End Date 04/04/23 Therapeutic Interventions Therapeutic Interventions Home Exercise Program,Joint Mobilizations,Manual Therapy, Neuromuscular Re-education, Patient/Caregiver Education, Self-Care/Home Management,Soft Tissue Mobilization, Therapeutic Activities, Therapeutic Exercises Modalities Cold Pack/Ice Massage,Hot Packs Next Visit Focus/Plan Next Note Type Treatment Note Next Visit Plan stretches for UT/LS, scalenes UE strengthening, STM, joint mobilizations
--- NOTE | 2023-01-17 12:03 | PT.OTN ---
Current Diagnoses Primary osteoarthritis, right shoulder (01/17/23) Pain in right shoulder (01/17/23) Stiffness of right shoulder, not elsewhere classified (01/17/23) Physical Therapy Treatment Note PT-OP-A Visit Information Start: 01/04/23 16:42 Freq: Status: Active Protocol: Document 01/17/23 11:28 DCW (Rec: 01/17/23 12:03 DCW [id number]) Out-Patient Physical Therapy Visit Information Visit Information Visit Type Treatment Note Visit Note Pt arrived 13 minutes late Visit Start Time 11:28 Visit Stop Time 12:00 Total Visit Minutes 32 Visit Number 3 Number of PLASTICS SUPERVISOR Visits 0 Evaluation Information Evaluation Date 01/04/23 PT-OP-B Current Condition Start: 01/04/23 16:42 Freq: Status: Active Protocol: Document 01/04/23 11:15 DCW (Rec: 01/04/23 17:56 DCW [id number]) Current Condition History of Current Condition Onset Date 08/20/23 Current Complaints Right shoulder pain and loss of mobility History of Current Condition Pt is an 87 year old male well known to this clinic presenting with a 4.5 month history of right shoulder pain and stiffness. Pt reports he had a small hole next to his sidewalk, and stepped in it, resulting in a fall, which caused him to significantly injure his shoulder. Pt received a cortisone injection three days later, which helped for a bot, but then he just did a simple reach to grab a broom handle, and he had severe pain which took me to my knees, and has been in significant pain ever since. Reports he is not able to reach up into his cupboards. Treatment Goals Patient/Caregiver Goals I need to reach up into my cupboards. That's where I keep my bourbon. PT-OP-C Subjective Start: 01/04/23 16:42 Freq: Status: Active Protocol: Document 01/17/23 11:28 DCW (Rec: 01/17/23 12:03 DCW [id number]) OP-PT Subjective Patient Comments Patient Comments Almost perfect, my shoulder is the only thing holding me back. PT-OP-E Functional Tests Start: 01/04/23 16:42 Freq: Status: Active Protocol: Document 01/04/23 11:15 DCW (Rec: 01/04/23 17:56 DCW [id number]) Functional Tests Apley's Scratch Test Action 2- Left C4 Action 2- Right Occiput Action 3- Left T7 Action 3- Right T11 PT-OP-K Range of Motion Start: 01/04/23 16:42 Freq: Status: Active Protocol: Document 01/04/23 11:15 DCW (Rec: 01/04/23 17:56 DCW [id number]) Shoulder Goniometric Range of Motion Shoulder Right Active Shoulder ROM WFL No Testing Position Sitting Flexion 65 Abduction 53 External Rotation at 0 degrees Abduction 40 Internal Rotation Behind Back (text) T11 Left Active Shoulder ROM WFL No Testing Position Sitting Flexion 150 Abduction 100 External Rotation at 0 degrees Abduction 48 Internal Rotation Behind Back (text) T7 PT-OP-L Special Tests Start: 01/04/23 16:42 Freq: Status: Active Protocol: Document 01/04/23 11:15 DCW (Rec: 01/04/23 17:56 DCW [id number]) Special Tests Shoulder Special Tests Speed's Biceps Test Results Positive R Passive ER Rotator Cuff Test Results Negative Painful Arc Test Results Positive R Lift-Off Rotator Cuff Test Results Positive R Reina Eugene Impingement Test Results Positive R Grind Labrum Test Results Positive R Empty Can Test Results Negative Drop Arm Rotator Cuff Test Results Positive R Clunk Test Test Results Positive R Belly Press Test Results Negative Apprehension Test Test Results Negative AC Joint Compression Test Results Negative PT-OP-M Strength Start: 01/04/23 16:42 Freq: Status: Active Protocol: Document 01/04/23 11:15 DCW (Rec: 01/04/23 17:56 DCW [id number]) Shoulder Strength Shoulder Manual Muscle Testing Right Flexion 2 Poor Abduction (C5) 2 Poor External Rotation 4- Good- Internal Rotation 4+ Good+ Left Flexion 3 Fair Abduction (C5) 3 Fair External Rotation 4- Good- Internal Rotation 4+ Good+ PT-OP-Q Treatments Start: 01/04/23 16:42 Freq: Status: Active Protocol: Document 01/17/23 11:28 DCW (Rec: 01/17/23 12:03 DCW [id number]) Cardio Equipment Upper Body Ergometer (UBE) Duration (Minutes) 5 RPM 60 Seat Position 11 Height 3 Therapeutic Exercises Other Exercises Resisted ambulation Other Exercise Name Resisted UE side-stepping Resistance Yellow Manual Therapy Treatment Soft Tissue Mobilization R shoulder Body Location R pec, bicep, deltoid, supraspinatus, UT, LS Mobilization Type Cross-Friction,Rolling, Strumming,Sustained Pressure Intensity/Depth Moderate Body Position Hooklying Comments focus on UT manual cervical tx x30s manual pin and stretch to R UT w/ good feedback response PT-OP-R Modalities Start: 01/13/23 13:29 Freq: Status: Active Protocol: Document 01/13/23 11:42 NBM (Rec: 01/13/23 13:31 NBM [id number]) Hot Pack/Cold Pack Treatment Cold Pack Location R shoulder Patient Position Hooklying Treatment Duration (minutes) 9 Patient Tolerance Fair Comments Pt reports tingling about 9 min PT-OP-T Assessment and Plan Start: 01/04/23 16:42 Freq: Status: Active Protocol: Document 01/17/23 11:28 DCW (Rec: 01/17/23 12:03 DCW [id number]) Physical Therapy Assessment Goals Two Impairment Pt significantly limited with bilateral shoulder ROM, R worse than L Bobtail Driver Goal (LTG) Pt to show improved flexion and abduction of at least 120? bilaterally in both planes in order to demonstrate ability to get items out of his kitchen cabinets. LTG Duration 04/04/23 One Impairment Pt does not have an appropriate home exercise program Short Term Goal (STG) Pt to be independent and compliant with an appropriate HEP STG Duration 02/01/23 Assessment Summary Assessment Pt showing some slightly improved ROM, particularly with R abduction at 64?, increased from 53?. Still increased tenderness along entire shoulder girdle, especially supra/infraspinatus and rhomboids. Tolerates UT STM very well. Physical Therapy Plan Frequency and Duration Frequency of Treatment 2x/Week Plan of Care Start Date 01/04/23 Plan of Care End Date 04/04/23 Therapeutic Interventions Therapeutic Interventions Home Exercise Program,Joint Mobilizations,Manual Therapy, Neuromuscular Re-education, Patient/Caregiver Education, Self-Care/Home Management,Soft Tissue Mobilization, Therapeutic Activities, Therapeutic Exercises Modalities Cold Pack/Ice Massage,Hot Packs Next Visit Focus/Plan Next Note Type Treatment Note Next Visit Plan stretches for UT/LS, scalenes UE strengthening, STM, joint mobilizations
--- NOTE | 2023-01-20 12:31 | PT.OTN ---
Current Diagnoses Primary osteoarthritis, right shoulder (01/20/23) Pain in right shoulder (01/20/23) Stiffness of right shoulder, not elsewhere classified (01/20/23) Physical Therapy Treatment Note PT-OP-A Visit Information Start: 01/04/23 16:42 Freq: Status: Active Protocol: Document 01/20/23 11:36 NBM (Rec: 01/20/23 12:30 NBM [id number]) Out-Patient Physical Therapy Visit Information Visit Information Visit Type Treatment Note Visit Start Time 11:35 Visit Stop Time 12:20 Total Visit Minutes 45 Visit Number 4 Number of SENIOR OFFICE ASSISTANT Visits 1 PT-OP-B Current Condition Start: 01/04/23 16:42 Freq: Status: Active Protocol: Document 01/04/23 11:15 DCW (Rec: 01/04/23 17:56 DCW [id number]) Current Condition History of Current Condition Onset Date 08/20/23 Current Complaints Right shoulder pain and loss of mobility History of Current Condition Pt is an 87 year old male well known to this clinic presenting with a 4.5 month history of right shoulder pain and stiffness. Pt reports he had a small hole next to his sidewalk, and stepped in it, resulting in a fall, which caused him to significantly injure his shoulder. Pt received a cortisone injection three days later, which helped for a bot, but then he just did a simple reach to grab a broom handle, and he had severe pain which took me to my knees, and has been in significant pain ever since. Reports he is not able to reach up into his cupboards. Treatment Goals Patient/Caregiver Goals I need to reach up into my cupboards. That's where I keep my bourbon. PT-OP-C Subjective Start: 01/04/23 16:42 Freq: Status: Active Protocol: Document 01/20/23 11:36 NBM (Rec: 01/20/23 12:30 NBM [id number]) OP-PT Subjective Patient Comments Patient Comments Pt reports PT fixed something in my neck last session and was really sore in a different way like someone hit me in the back of the neck, it was a good hurt I could look up for the first time in two years without hanging on to anything. Pt states his back gets really tired really quick with cooking and dishes when he forgets to squeeze his shoulder blades and stand up tall. PT-OP-E Functional Tests Start: 01/04/23 16:42 Freq: Status: Active Protocol: Document 01/04/23 11:15 DCW (Rec: 01/04/23 17:56 DCW [id number]) Functional Tests Apley's Scratch Test Action 2- Left C4 Action 2- Right Occiput Action 3- Left T7 Action 3- Right T11 PT-OP-K Range of Motion Start: 01/04/23 16:42 Freq: Status: Active Protocol: Document 01/04/23 11:15 DCW (Rec: 01/04/23 17:56 DCW [id number]) Shoulder Goniometric Range of Motion Shoulder Right Active Shoulder ROM WFL No Testing Position Sitting Flexion 65 Abduction 53 External Rotation at 0 degrees Abduction 40 Internal Rotation Behind Back (text) T11 Left Active Shoulder ROM WFL No Testing Position Sitting Flexion 150 Abduction 100 External Rotation at 0 degrees Abduction 48 Internal Rotation Behind Back (text) T7 PT-OP-L Special Tests Start: 01/04/23 16:42 Freq: Status: Active Protocol: Document 01/04/23 11:15 DCW (Rec: 01/04/23 17:56 DCW [id number]) Special Tests Shoulder Special Tests Speed's Biceps Test Results Positive R Passive ER Rotator Cuff Test Results Negative Painful Arc Test Results Positive R Lift-Off Rotator Cuff Test Results Positive R Reina Eugene Impingement Test Results Positive R Grind Labrum Test Results Positive R Empty Can Test Results Negative Drop Arm Rotator Cuff Test Results Positive R Clunk Test Test Results Positive R Belly Press Test Results Negative Apprehension Test Test Results Negative AC Joint Compression Test Results Negative PT-OP-M Strength Start: 01/04/23 16:42 Freq: Status: Active Protocol: Document 01/04/23 11:15 DCW (Rec: 01/04/23 17:56 DCW [id number]) Shoulder Strength Shoulder Manual Muscle Testing Right Flexion 2 Poor Abduction (C5) 2 Poor External Rotation 4- Good- Internal Rotation 4+ Good+ Left Flexion 3 Fair Abduction (C5) 3 Fair External Rotation 4- Good- Internal Rotation 4+ Good+ PT-OP-Q Treatments Start: 01/04/23 16:42 Freq: Status: Active Protocol: Document 01/20/23 11:36 NBM (Rec: 01/20/23 12:30 [facility] [id number]) Cardio Equipment Upper Body Ergometer (UBE) Duration (Minutes) 5 RPM 60 Seat Position 11 Height 3 Therapeutic Exercises Supine Exercises scapular retraction Supine Exercise Name hooklying, elbows bent to 90deg, press elbows gently into table Reps/Minutes 10x5s Standing Exercises scapular retraction Standing Exercise Name scap squeeze Reps/Minutes 10x2 SH Comments tactile cues ER/IR Standing Exercise Name ER/IR Side bilateral Resistance Lv 1 Comments cues for scapular setting, pain-free range Rows Standing Exercise Name Rows Side bilateral Resistance Lv 1 Reps/Minutes x10 Comments cues for scap setting first Other Exercises Resisted ambulation Other Exercise Name Resisted UE side-stepping Resistance Yellow Self-Care/Home Management Treatment Education Patient Education Home Exercise Program Other Education Added stretches to HEP: cervical extension stretch, LS , UT - HO given. PT-OP-R Modalities Start: 01/13/23 13:29 Freq: Status: Active Protocol: Document 01/13/23 11:42 [facility] (Rec: 01/13/23 13:31 [facility] [id number]) Hot Pack/Cold Pack Treatment Cold Pack Location R shoulder Patient Position Hooklying Treatment Duration (minutes) 9 Patient Tolerance Fair Comments Pt reports tingling about 9 min PT-OP-T Assessment and Plan Start: 01/04/23 16:42 Freq: Status: Active Protocol: Document 01/20/23 11:36 NB (Rec: 01/20/23 12:30 [facility] [id number]) Physical Therapy Assessment Impairments Impairments Activity Tolerance,Functional Activities,Functional Mobility ,Pain,Posture,ROM,Soft Tissue Mobility,Strength Goals Two Impairment Pt significantly limited with bilateral shoulder ROM, R worse than L Director Digital Advertising Goal (LTG) Pt to show improved flexion and abduction of at least 120? bilaterally in both planes in order to demonstrate ability to get items out of his kitchen cabinets. LTG Duration 04/04/23 One Impairment Pt does not have an appropriate home exercise program Short Term Goal (STG) Pt to be independent and compliant with an appropriate HEP STG Duration 02/01/23 Assessment Summary Assessment Pt's posture improves with tactile or visual cues but pt needs these cues with each exercise and when approaching fatigue with exericise. Pt needs cues for chin tuck with ex's and stretches - L LS stretch elicits nerve pain in L shoulder but improves when cued for chin tuck and gentle pain-free ROM. Pt has decreased palpable tightness to L UT with manual therapy. Added stretches to HEP: cervical extension stretch, LS , UT - HO given. Pt to r/s cancelled appts with front office manager. Physical Therapy Plan Frequency and Duration Frequency of Treatment 2x/Week Plan of Care Start Date 01/04/23 Plan of Care End Date 04/04/23 Therapeutic Interventions Therapeutic Interventions Home Exercise Program,Joint Mobilizations,Manual Therapy, Neuromuscular Re-education, Patient/Caregiver Education, Self-Care/Home Management,Soft Tissue Mobilization, Therapeutic Activities, Therapeutic Exercises Modalities Cold Pack/Ice Massage,Hot Packs Next Visit Focus/Plan Next Note Type Treatment Note Next Visit Plan stretches for UT/LS, scalenes UE strengthening, STM, joint mobilizations
--- NOTE | 2023-01-23 11:57 | PT.OTN ---
Current Diagnoses Primary osteoarthritis, right shoulder (01/23/23) Pain in right shoulder (01/23/23) Stiffness of right shoulder, not elsewhere classified (01/23/23) Physical Therapy Treatment Note PT-OP-A Visit Information Start: 01/04/23 16:42 Freq: Status: Active Protocol: Document 01/23/23 11:15 DCW (Rec: 01/23/23 11:57 DCW [id number]) Out-Patient Physical Therapy Visit Information Visit Information Visit Type Treatment Note Visit Start Time 11:15 Visit Stop Time 12:00 Total Visit Minutes 45 Visit Number 5 Number of DINKEY SKINNER Visits 0 Evaluation Information Evaluation Date 01/04/23 PT-OP-B Current Condition Start: 01/04/23 16:42 Freq: Status: Active Protocol: Document 01/04/23 11:15 DCW (Rec: 01/04/23 17:56 DCW [id number]) Current Condition History of Current Condition Onset Date 08/20/23 Current Complaints Right shoulder pain and loss of mobility History of Current Condition Pt is an 87 year old male well known to this clinic presenting with a 4.5 month history of right shoulder pain and stiffness. Pt reports he had a small hole next to his sidewalk, and stepped in it, resulting in a fall, which caused him to significantly injure his shoulder. Pt received a cortisone injection three days later, which helped for a bot, but then he just did a simple reach to grab a broom handle, and he had severe pain which took me to my knees, and has been in significant pain ever since. Reports he is not able to reach up into his cupboards. Treatment Goals Patient/Caregiver Goals I need to reach up into my cupboards. That's where I keep my bourbon. PT-OP-C Subjective Start: 01/04/23 16:42 Freq: Status: Active Protocol: Document 01/23/23 11:15 DCW (Rec: 01/23/23 11:57 DCW [id number]) OP-PT Subjective Patient Comments Patient Comments There's a light-pull in my closet that I haven't been able ot reach in a few years, but I reached up and pulled it yesterday, so we're making some good progress. PT-OP-E Functional Tests Start: 01/04/23 16:42 Freq: Status: Active Protocol: Document 01/04/23 11:15 DCW (Rec: 01/04/23 17:56 DCW [id number]) Functional Tests Apley's Scratch Test Action 2- Left C4 Action 2- Right Occiput Action 3- Left T7 Action 3- Right T11 PT-OP-K Range of Motion Start: 01/04/23 16:42 Freq: Status: Active Protocol: Document 01/04/23 11:15 DCW (Rec: 01/04/23 17:56 DCW [id number]) Shoulder Goniometric Range of Motion Shoulder Right Active Shoulder ROM WFL No Testing Position Sitting Flexion 65 Abduction 53 External Rotation at 0 degrees Abduction 40 Internal Rotation Behind Back (text) T11 Left Active Shoulder ROM WFL No Testing Position Sitting Flexion 150 Abduction 100 External Rotation at 0 degrees Abduction 48 Internal Rotation Behind Back (text) T7 PT-OP-L Special Tests Start: 01/04/23 16:42 Freq: Status: Active Protocol: Document 01/04/23 11:15 DCW (Rec: 01/04/23 17:56 DCW [id number]) Special Tests Shoulder Special Tests Speed's Biceps Test Results Positive R Passive ER Rotator Cuff Test Results Negative Painful Arc Test Results Positive R Lift-Off Rotator Cuff Test Results Positive R Reina Eugene Impingement Test Results Positive R Grind Labrum Test Results Positive R Empty Can Test Results Negative Drop Arm Rotator Cuff Test Results Positive R Clunk Test Test Results Positive R Belly Press Test Results Negative Apprehension Test Test Results Negative AC Joint Compression Test Results Negative PT-OP-M Strength Start: 01/04/23 16:42 Freq: Status: Active Protocol: Document 01/04/23 11:15 DCW (Rec: 01/04/23 17:56 DCW [id number]) Shoulder Strength Shoulder Manual Muscle Testing Right Flexion 2 Poor Abduction (C5) 2 Poor External Rotation 4- Good- Internal Rotation 4+ Good+ Left Flexion 3 Fair Abduction (C5) 3 Fair External Rotation 4- Good- Internal Rotation 4+ Good+ PT-OP-Q Treatments Start: 01/04/23 16:42 Freq: Status: Active Protocol: Document 01/23/23 11:15 DCW (Rec: 01/23/23 11:57 DCW [id number]) Cardio Equipment Upper Body Ergometer (UBE) Duration (Minutes) 5 RPM 60 Seat Position 11 Height 3 Therapeutic Exercises Supine Exercises scapular retraction Supine Exercise Name hooklying, elbows bent to 90deg, press elbows gently into table Reps/Minutes 10x5s Standing Exercises ER/IR Standing Exercise Name ER/IR Side bilateral Resistance Lv 1 ER, Lv 2 IR Comments cues for scapular setting, pain-free range Rows Standing Exercise Name Rows Side bilateral Resistance Lv 2 Reps/Minutes x15 Comments cues for scap setting first Other Exercises Resisted ambulation Other Exercise Name Resisted UE side-stepping Resistance Yellow Manual Therapy Treatment Soft Tissue Mobilization R shoulder Body Location B pec, bicep, deltoid, supraspinatus, UT, LS Mobilization Type Cross-Friction,Rolling, Strumming,Sustained Pressure Intensity/Depth Moderate Body Position Hooklying Comments focus on UT PT-OP-R Modalities Start: 01/13/23 13:29 Freq: Status: Active Protocol: Document 01/13/23 11:42 NBM (Rec: 01/13/23 13:31 NBM [id number]) Hot Pack/Cold Pack Treatment Cold Pack Location R shoulder Patient Position Hooklying Treatment Duration (minutes) 9 Patient Tolerance Fair Comments Pt reports tingling about 9 min PT-OP-T Assessment and Plan Start: 01/04/23 16:42 Freq: Status: Active Protocol: Document 01/23/23 11:15 DCW (Rec: 01/23/23 11:57 DCW [id number]) Physical Therapy Assessment Impairments Impairments Activity Tolerance,Functional Activities,Functional Mobility ,Pain,Posture,ROM,Soft Tissue Mobility,Strength Goals Two Impairment Pt significantly limited with bilateral shoulder ROM, R worse than L Usp Goal (LTG) Pt to show improved flexion and abduction of at least 120? bilaterally in both planes in order to demonstrate ability to get items out of his kitchen cabinets. LTG Duration 04/04/23 One Impairment Pt does not have an appropriate home exercise program Short Term Goal (STG) Pt to be independent and compliant with an appropriate HEP STG Duration 02/01/23 Assessment Summary Assessment Pt has been fairly compliant with his HEP, showing fairly good improvement with functional mobility, improved ability to reach overhead. Physical Therapy Plan Frequency and Duration Frequency of Treatment 2x/Week Plan of Care Start Date 01/04/23 Plan of Care End Date 04/04/23 Therapeutic Interventions Therapeutic Interventions Home Exercise Program,Joint Mobilizations,Manual Therapy, Neuromuscular Re-education, Patient/Caregiver Education, Self-Care/Home Management,Soft Tissue Mobilization, Therapeutic Activities, Therapeutic Exercises Modalities Cold Pack/Ice Massage,Hot Packs Next Visit Focus/Plan Next Note Type Treatment Note Next Visit Plan stretches for UT/LS, scalenes UE strengthening, STM, joint mobilizations
--- NOTE | 2023-01-25 11:58 | PT.OTN ---
Current Diagnoses Primary osteoarthritis, right shoulder (01/25/23) Pain in right shoulder (01/25/23) Stiffness of right shoulder, not elsewhere classified (01/25/23) Physical Therapy Treatment Note PT-OP-A Visit Information Start: 01/04/23 16:42 Freq: Status: Active Protocol: Document 01/25/23 11:15 DCW (Rec: 01/25/23 11:58 DCW [id number]) Out-Patient Physical Therapy Visit Information Visit Information Visit Type Treatment Note Visit Start Time 11:15 Visit Stop Time 12:00 Total Visit Minutes 45 Visit Number 6 Number of DRAIN CLEANER PLUMBER Visits 0 Evaluation Information Evaluation Date 01/04/23 PT-OP-B Current Condition Start: 01/04/23 16:42 Freq: Status: Active Protocol: Document 01/04/23 11:15 DCW (Rec: 01/04/23 17:56 DCW [id number]) Current Condition History of Current Condition Onset Date 08/20/23 Current Complaints Right shoulder pain and loss of mobility History of Current Condition Pt is an 87 year old male well known to this clinic presenting with a 4.5 month history of right shoulder pain and stiffness. Pt reports he had a small hole next to his sidewalk, and stepped in it, resulting in a fall, which caused him to significantly injure his shoulder. Pt received a cortisone injection three days later, which helped for a bot, but then he just did a simple reach to grab a broom handle, and he had severe pain which took me to my knees, and has been in significant pain ever since. Reports he is not able to reach up into his cupboards. Treatment Goals Patient/Caregiver Goals I need to reach up into my cupboards. That's where I keep my bourbon. PT-OP-C Subjective Start: 01/04/23 16:42 Freq: Status: Active Protocol: Document 01/25/23 11:15 DCW (Rec: 01/25/23 11:58 DCW [id number]) OP-PT Subjective Patient Comments Patient Comments It was feeling so good, but I had a friend give me a big bucket of horse manure for my tomatoes. It was in the back of my truck, and I reached over the tailgate and tried to lift it up, really strained my right arm. PT-OP-E Functional Tests Start: 01/04/23 16:42 Freq: Status: Active Protocol: Document 01/04/23 11:15 DCW (Rec: 01/04/23 17:56 DCW [id number]) Functional Tests Apley's Scratch Test Action 2- Left C4 Action 2- Right Occiput Action 3- Left T7 Action 3- Right T11 PT-OP-K Range of Motion Start: 01/04/23 16:42 Freq: Status: Active Protocol: Document 01/04/23 11:15 DCW (Rec: 01/04/23 17:56 DCW [id number]) Shoulder Goniometric Range of Motion Shoulder Right Active Shoulder ROM WFL No Testing Position Sitting Flexion 65 Abduction 53 External Rotation at 0 degrees Abduction 40 Internal Rotation Behind Back (text) T11 Left Active Shoulder ROM WFL No Testing Position Sitting Flexion 150 Abduction 100 External Rotation at 0 degrees Abduction 48 Internal Rotation Behind Back (text) T7 PT-OP-L Special Tests Start: 01/04/23 16:42 Freq: Status: Active Protocol: Document 01/04/23 11:15 DCW (Rec: 01/04/23 17:56 DCW [id number]) Special Tests Shoulder Special Tests Speed's Biceps Test Results Positive R Passive ER Rotator Cuff Test Results Negative Painful Arc Test Results Positive R Lift-Off Rotator Cuff Test Results Positive R Reina Eugene Impingement Test Results Positive R Grind Labrum Test Results Positive R Empty Can Test Results Negative Drop Arm Rotator Cuff Test Results Positive R Clunk Test Test Results Positive R Belly Press Test Results Negative Apprehension Test Test Results Negative AC Joint Compression Test Results Negative PT-OP-M Strength Start: 01/04/23 16:42 Freq: Status: Active Protocol: Document 01/04/23 11:15 DCW (Rec: 01/04/23 17:56 DCW [id number]) Shoulder Strength Shoulder Manual Muscle Testing Right Flexion 2 Poor Abduction (C5) 2 Poor External Rotation 4- Good- Internal Rotation 4+ Good+ Left Flexion 3 Fair Abduction (C5) 3 Fair External Rotation 4- Good- Internal Rotation 4+ Good+ PT-OP-Q Treatments Start: 01/04/23 16:42 Freq: Status: Active Protocol: Document 01/25/23 11:15 DCW (Rec: 01/25/23 11:58 DCW [id number]) Cardio Equipment Upper Body Ergometer (UBE) Duration (Minutes) 6 RPM 60 Seat Position 11 Height 3 Therapeutic Exercises Standing Exercises Flexion Standing Exercise Name Shoulder Flexion Side bilateral Resistance 2# Abduction Standing Exercise Name Shoulder Abduction Side bilateral Resistance 2# Extension Standing Exercise Name Shoulder extension Side bilateral Resistance Lv 3 ER/IR Standing Exercise Name ER/IR Side bilateral Resistance Lv 1 ER, Lv 2 IR Comments cues for scapular setting, pain-free range Rows Standing Exercise Name Rows Side bilateral Resistance Lv 3 Reps/Minutes x15 Comments cues for scap setting first Other Exercises Resisted ambulation Other Exercise Name Resisted UE side-stepping Resistance Yellow Manual Therapy Treatment Soft Tissue Mobilization R shoulder Body Location B pec, bicep, deltoid, supraspinatus, UT, LS Mobilization Type Cross-Friction,Rolling, Strumming,Sustained Pressure Intensity/Depth Moderate Body Position Hooklying Comments focus on UT PT-OP-R Modalities Start: 01/13/23 13:29 Freq: Status: Active Protocol: Document 01/13/23 11:42 NBM (Rec: 01/13/23 13:31 NBM [id number]) Hot Pack/Cold Pack Treatment Cold Pack Location R shoulder Patient Position Hooklying Treatment Duration (minutes) 9 Patient Tolerance Fair Comments Pt reports tingling about 9 min PT-OP-T Assessment and Plan Start: 01/04/23 16:42 Freq: Status: Active Protocol: Document 01/25/23 11:15 DCW (Rec: 01/25/23 11:58 DCW [id number]) Physical Therapy Assessment Impairments Impairments Activity Tolerance,Functional Activities,Functional Mobility ,Pain,Posture,ROM,Soft Tissue Mobility,Strength Goals Two Impairment Pt significantly limited with bilateral shoulder ROM, R worse than L Industrial Order Clerk Goal (LTG) Pt to show improved flexion and abduction of at least 120? bilaterally in both planes in order to demonstrate ability to get items out of his kitchen cabinets. LTG Duration 04/04/23 One Impairment Pt does not have an appropriate home exercise program Short Term Goal (STG) Pt to be independent and compliant with an appropriate HEP STG Duration 02/01/23 Assessment Summary Assessment Pt obviously displaying increased pain response today, appears to mainly be located at R bicipital groove, added abduction and flexion exercises, significant difficulty with right arm moving through more than 45? in either plane. Physical Therapy Plan Frequency and Duration Frequency of Treatment 2x/Week Plan of Care Start Date 01/04/23 Plan of Care End Date 04/04/23 Therapeutic Interventions Therapeutic Interventions Home Exercise Program,Joint Mobilizations,Manual Therapy, Neuromuscular Re-education, Patient/Caregiver Education, Self-Care/Home Management,Soft Tissue Mobilization, Therapeutic Activities, Therapeutic Exercises Modalities Cold Pack/Ice Massage,Hot Packs Next Visit Focus/Plan Next Note Type Treatment Note Next Visit Plan stretches for UT/LS, scalenes UE strengthening, STM, joint mobilizations
--- NOTE | 2023-02-10 10:48 | PT.OTN ---
Current Diagnoses Primary osteoarthritis, right shoulder (02/10/23) Pain in right shoulder (02/10/23) Stiffness of right shoulder, not elsewhere classified (02/10/23) Physical Therapy Treatment Note PT-OP-A Visit Information Start: 01/04/23 16:42 Freq: Status: Active Protocol: Document 02/10/23 09:59 NBM (Rec: 02/10/23 10:47 NBM [id number]) Out-Patient Physical Therapy Visit Information Visit Information Visit Type Treatment Note Visit Start Time 10:00 Visit Stop Time 10:42 Total Visit Minutes 40 Visit Number 7 Number of TRAVEL NURSE Visits 1 PT-OP-B Current Condition Start: 01/04/23 16:42 Freq: Status: Active Protocol: Document 01/04/23 11:15 DCW (Rec: 01/04/23 17:56 DCW [id number]) Current Condition History of Current Condition Onset Date 08/20/23 Current Complaints Right shoulder pain and loss of mobility History of Current Condition Pt is an 87 year old male well known to this clinic presenting with a 4.5 month history of right shoulder pain and stiffness. Pt reports he had a small hole next to his sidewalk, and stepped in it, resulting in a fall, which caused him to significantly injure his shoulder. Pt received a cortisone injection three days later, which helped for a bot, but then he just did a simple reach to grab a broom handle, and he had severe pain which took me to my knees, and has been in significant pain ever since. Reports he is not able to reach up into his cupboards. Treatment Goals Patient/Caregiver Goals I need to reach up into my cupboards. That's where I keep my bourbon. PT-OP-C Subjective Start: 01/04/23 16:42 Freq: Status: Active Protocol: Document 02/10/23 09:59 NBM (Rec: 02/10/23 10:47 NBM [id number]) OP-PT Subjective Patient Comments Patient Comments Pt states he is doing much better. His daughter had shoulder rehab and he took her advice to do shoulder pendulums and write ABCs as high as he can - he gets to C before having to quit because of fatigue. Pt can reach even higher than pull-down light now. PT-OP-E Functional Tests Start: 01/04/23 16:42 Freq: Status: Active Protocol: Document 01/04/23 11:15 DCW (Rec: 01/04/23 17:56 DCW [id number]) Functional Tests Apley's Scratch Test Action 2- Left C4 Action 2- Right Occiput Action 3- Left T7 Action 3- Right T11 PT-OP-K Range of Motion Start: 01/04/23 16:42 Freq: Status: Active Protocol: Document 01/04/23 11:15 DCW (Rec: 01/04/23 17:56 DCW [id number]) Shoulder Goniometric Range of Motion Shoulder Right Active Shoulder ROM WFL No Testing Position Sitting Flexion 65 Abduction 53 External Rotation at 0 degrees Abduction 40 Internal Rotation Behind Back (text) T11 Left Active Shoulder ROM WFL No Testing Position Sitting Flexion 150 Abduction 100 External Rotation at 0 degrees Abduction 48 Internal Rotation Behind Back (text) T7 PT-OP-L Special Tests Start: 01/04/23 16:42 Freq: Status: Active Protocol: Document 01/04/23 11:15 DCW (Rec: 01/04/23 17:56 DCW [id number]) Special Tests Shoulder Special Tests Speed's Biceps Test Results Positive R Passive ER Rotator Cuff Test Results Negative Painful Arc Test Results Positive R Lift-Off Rotator Cuff Test Results Positive R Reina Eugene Impingement Test Results Positive R Grind Labrum Test Results Positive R Empty Can Test Results Negative Drop Arm Rotator Cuff Test Results Positive R Clunk Test Test Results Positive R Belly Press Test Results Negative Apprehension Test Test Results Negative AC Joint Compression Test Results Negative PT-OP-M Strength Start: 01/04/23 16:42 Freq: Status: Active Protocol: Document 01/04/23 11:15 DCW (Rec: 01/04/23 17:56 DCW [id number]) Shoulder Strength Shoulder Manual Muscle Testing Right Flexion 2 Poor Abduction (C5) 2 Poor External Rotation 4- Good- Internal Rotation 4+ Good+ Left Flexion 3 Fair Abduction (C5) 3 Fair External Rotation 4- Good- Internal Rotation 4+ Good+ PT-OP-Q Treatments Start: 01/04/23 16:42 Freq: Status: Active Protocol: Document 02/10/23 09:59 NBM (Rec: 02/10/23 10:47 NBM [id number]) Cardio Equipment Upper Body Ergometer (UBE) Duration (Minutes) 6 RPM 60 Seat Position 11 Height 3 Other 5' fwd, 1' bwd, initial cue for scapular setting Therapeutic Exercises Standing Exercises ABCs Side right Equipment Used wall Comments tactile cues for R UT overactivation Pendulums Side right Equipment Used hi-lo table Reps/Minutes x10 ea CW/CCW Comments visual cue for PROM not AROM Flexion Standing Exercise Name Shoulder Flexion Side bilateral Resistance 2# Abduction Standing Exercise Name Shoulder Abduction Side bilateral Resistance 2# Extension Standing Exercise Name Shoulder extension Side bilateral Resistance Lv 3 Comments cues for posture, scap setting , straight arms ER/IR Standing Exercise Name ER/IR Side bilateral Resistance Lv 2>1 ER, Lv 2 IR Comments cues for scapular setting, control eccentric Rows Standing Exercise Name Rows Side bilateral Resistance Lv 3 Reps/Minutes x15 Comments cues for scap setting first and upright posture Manual Therapy Treatment Soft Tissue Mobilization R shoulder Body Location B pec, bicep, deltoid, supraspinatus, UT, LS Mobilization Type Cross-Friction,Rolling, Strumming,Sustained Pressure Intensity/Depth Moderate Body Position Sidelying Comments w/ pillow support under RUE and between knees/ankles. focus on R UT and supraspinatus - + feedback response PT-OP-R Modalities Start: 01/13/23 13:29 Freq: Status: Active Protocol: Document 02/10/23 09:59 NBM (Rec: 02/10/23 10:47 [facility] [id number]) Hot Pack/Cold Pack Treatment Cold Pack Location R shoulder Patient Position Hooklying Treatment Duration (minutes) 8 Patient Tolerance Fair PT-OP-T Assessment and Plan Start: 01/04/23 16:42 Freq: Status: Active Protocol: Document 02/10/23 09:59 NBM (Rec: 02/10/23 10:47 [facility] [id number]) Physical Therapy Assessment Impairments Impairments Activity Tolerance,Functional Activities,Functional Mobility ,Pain,Posture,ROM,Soft Tissue Mobility,Strength Goals Two Impairment Pt significantly limited with bilateral shoulder ROM, R worse than L Correction Goal (LTG) Pt to show improved flexion and abduction of at least 120? bilaterally in both planes in order to demonstrate ability to get items out of his kitchen cabinets. LTG Duration 04/04/23 One Impairment Pt does not have an appropriate home exercise program Short Term Goal (STG) Pt to be independent and compliant with an appropriate HEP STG Duration 02/01/23 Assessment Summary Assessment Pt to schedule one more visit w/ PT for possible d/c. Pt demonstrates improving functional mobility with decreased pain but continues to require cues for upright posture and R UT overactivation w/ UE overhead reaching. Pinpoint soreness to R UT improves with manual therapy. Pt fatigues quickly w / ABCs ex at wall. Physical Therapy Plan Frequency and Duration Frequency of Treatment 2x/Week Plan of Care Start Date 01/04/23 Plan of Care End Date 04/04/23 Therapeutic Interventions Therapeutic Interventions Home Exercise Program,Joint Mobilizations,Manual Therapy, Neuromuscular Re-education, Patient/Caregiver Education, Self-Care/Home Management,Soft Tissue Mobilization, Therapeutic Activities, Therapeutic Exercises Modalities Cold Pack/Ice Massage,Hot Packs Next Visit Focus/Plan Next Note Type Treatment Note Next Visit Plan Assess for d/c. Review stretches for UT/LS, scalenes POC: UE strengthening, STM, joint mobilizations
--- NOTE | 2023-02-13 15:34 | PT.OTN ---
Current Diagnoses Primary osteoarthritis, right shoulder (02/13/23) Pain in right shoulder (02/13/23) Stiffness of right shoulder, not elsewhere classified (02/13/23) Physical Therapy Treatment Note PT-OP-A Visit Information Start: 01/04/23 16:42 Freq: Status: Active Protocol: Document 02/13/23 15:15 DCW (Rec: 02/13/23 15:34 DCW [id number]) Out-Patient Physical Therapy Visit Information Visit Information Visit Type Discharge Summary Visit Note Discharge, and requested leaving early due to pt scheduling conflict Visit Start Time 15:15 Visit Stop Time 15:30 Total Visit Minutes 15 Visit Number 8 Number of WOUND CARE PHYSICIAN Visits 0 Evaluation Information Evaluation Date 01/04/23 PT-OP-B Current Condition Start: 01/04/23 16:42 Freq: Status: Active Protocol: Document 01/04/23 11:15 DCW (Rec: 01/04/23 17:56 DCW [id number]) Current Condition History of Current Condition Onset Date 08/20/23 Current Complaints Right shoulder pain and loss of mobility History of Current Condition Pt is an 87 year old male well known to this clinic presenting with a 4.5 month history of right shoulder pain and stiffness. Pt reports he had a small hole next to his sidewalk, and stepped in it, resulting in a fall, which caused him to significantly injure his shoulder. Pt received a cortisone injection three days later, which helped for a bot, but then he just did a simple reach to grab a broom handle, and he had severe pain which took me to my knees, and has been in significant pain ever since. Reports he is not able to reach up into his cupboards. Treatment Goals Patient/Caregiver Goals I need to reach up into my cupboards. That's where I keep my bourbon. PT-OP-C Subjective Start: 01/04/23 16:42 Freq: Status: Active Protocol: Document 02/13/23 15:15 DCW (Rec: 02/13/23 15:34 DCW [id number]) OP-PT Subjective Patient Comments Patient Comments My exercises at home are getting pretty easy, I feel pretty much perfect. Patient Reported Progress Improving PT-OP-E Functional Tests Start: 01/04/23 16:42 Freq: Status: Active Protocol: Document 02/13/23 15:15 DCW (Rec: 02/13/23 15:23 DCW [id number]) Functional Tests Apley's Scratch Test Action 2- Left T4 Action 2- Right T2 Action 3- Left T6 Action 3- Right T6 PT-OP-K Range of Motion Start: 01/04/23 16:42 Freq: Status: Active Protocol: Document 02/13/23 15:15 DCW (Rec: 02/13/23 15:23 DCW [id number]) Shoulder Goniometric Range of Motion Shoulder Right Active Flexion 113 Abduction 71 External Rotation at 0 degrees Abduction 53 Internal Rotation Behind Back (text) T6 Left Active Shoulder ROM WFL No Testing Position Sitting Flexion 150 Abduction 106 External Rotation at 0 degrees Abduction 52 Internal Rotation Behind Back (text) T6 PT-OP-L Special Tests Start: 01/04/23 16:42 Freq: Status: Active Protocol: Document 02/13/23 15:15 DCW (Rec: 02/13/23 15:23 DCW [id number]) Special Tests Shoulder Special Tests Speed's Biceps Test Results Negative Passive ER Rotator Cuff Test Results Negative Painful Arc Test Results Negative Lift-Off Rotator Cuff Test Results Negative Reina Eugene Impingement Test Results Negative Empty Can Test Results Negative Drop Arm Rotator Cuff Test Results Negative Belly Press Test Results Negative Apprehension Test Test Results Negative AC Joint Compression Test Results Negative PT-OP-M Strength Start: 01/04/23 16:42 Freq: Status: Active Protocol: Document 02/13/23 15:15 DCW (Rec: 02/13/23 15:23 DCW [id number]) Shoulder Strength Shoulder Manual Muscle Testing Right Flexion 2+ Poor+ Abduction (C5) 2+ Poor+ External Rotation 4- Good- Internal Rotation 4+ Good+ Left Flexion 3 Fair Abduction (C5) 3 Fair External Rotation 4- Good- Internal Rotation 4+ Good+ PT-OP-Q Treatments Start: 01/04/23 16:42 Freq: Status: Active Protocol: Document 02/13/23 15:15 DCW (Rec: 02/13/23 15:34 DCW [id number]) Therapeutic Exercises Standing Exercises Flexion Standing Exercise Name Shoulder Flexion Side bilateral Resistance Yellow Abduction Standing Exercise Name Shoulder Abduction Side bilateral Resistance Yellow PT-OP-R Modalities Start: 01/13/23 13:29 Freq: Status: Active Protocol: Document 02/10/23 09:59 NBM (Rec: 02/10/23 10:47 [facility] [id number]) Hot Pack/Cold Pack Treatment Cold Pack Location R shoulder Patient Position Hooklying Treatment Duration (minutes) 8 Patient Tolerance Fair PT-OP-T Assessment and Plan Start: 01/04/23 16:42 Freq: Status: Active Protocol: Document 02/13/23 15:15 DCW (Rec: 02/13/23 15:34 DCW [id number]) Physical Therapy Assessment Impairments Impairments Activity Tolerance,Functional Activities,Functional Mobility ,Pain,Posture,ROM,Soft Tissue Mobility,Strength Goals Two Impairment Pt significantly limited with bilateral shoulder ROM, R worse than L Correction Goal (LTG) Pt to show improved flexion and abduction of at least 120? bilaterally in both planes in order to demonstrate ability to get items out of his kitchen cabinets. LTG Duration Improving One Impairment Pt does not have an appropriate home exercise program Short Term Goal (STG) Pt to be independent and compliant with an appropriate HEP STG Duration Met Progress Towards Goals Progress Towards Goals Progressing Toward Goals Assessment Summary Assessment Pt making good improvements overall, very happy with his current level of function, no complaints of any pain or day- to-day difficulty. Pt happy with plan to discharge to independent [facility] at this time. Physical Therapy Plan Frequency and Duration Frequency of Treatment 2x/Week Plan of Care Start Date 01/04/23 Plan of Care End Date 04/04/23 Therapeutic Interventions Therapeutic Interventions Home Exercise Program,Joint Mobilizations,Manual Therapy, Neuromuscular Re-education, Patient/Caregiver Education, Self-Care/Home Management,Soft Tissue Mobilization, Therapeutic Activities, Therapeutic Exercises Modalities Cold Pack/Ice Massage,Hot Packs Discharge Physical Therapy Discharge Reasons Patient Request Next Visit Focus/Plan Next Note Type Discharge Summary
== END 2023-02-14 11:27 | disposition home or self-care (01) ==
LOC: PHYS 15:15
PROVIDERS: Family Provider Family Medicine; PCP Family Medicine; Referring Provider Family Medicine; Visit Provider Family Medicine
DX: M19.011 Primary osteoarthritis, right shoulder (principal); M25.511 Pain in right shoulder; M25.611 Stiffness of right shoulder, not elsewhere classified
CPT/HCPCS: 97110; 97140; 97162

== ENCOUNTER → 2023-08-02 07:48 | Outpatient (CLI) | payer MEDICARE, OTHER, SELFPAY ==
[2023-08-02 10:10] LABS: Add Manual Diff / Slide Review NO; Basophils Absolute Auto 0 /uL (0-100); Basophils Percent Auto 0.4 % (0-2); Eosinophils Absolute Auto 300 /uL (0-450); Hematocrit 33.9 % (41-53); Hemoglobin 11.7 g/dL (13.5-17.5); Lymphocytes Absolute Auto 2300 /uL (1100-4500); Lymphocytes Percent Auto 28.1 % (25-40); Mean Corpuscular HGB Conc 34.7 % (30-36); Mean Corpuscular Hemoglobin 32.6 PG (26-34); Mean Corpuscular Volume 93.9 fL (80-100); Monocytes Absolute Auto 600 /uL (0-900); Monocytes Percent Auto 7.8 % (3-14); Neutrophils Absolute Auto 4800 /uL (1500-7000); Neutrophils Percent Auto 59.7 % (50-75); Platelet Count 351 X10^3/uL (150-400); Red Blood Cell Count 3.61 X10^6/uL (4.5-5.9); Red Cell Distribution Width 13.7 % (11.6-14.8)
[2023-08-02 10:44] LABS: Alanine Aminotransferase 22 IU/L (<50); Albumin 3.9 g/dL (3.5-5.0); Albumin Globulin Ratio 1.3 (1.0-2.8); Alkaline Phosphatase 69 U/L (38-126); Aspartate Aminotransferase 32 IU/L (17-59); BUN Creatinine Ratio 29.5 (6-22); Bilirubin Total 0.7 mg/dL (0.2-1.3); Blood Urea Nitrogen 39 mg/dL (9-20); Calcium 9.7 mg/dL (8.4-10.2); Carbon Dioxide 26 mmol/L (22-32); Chloride 99 mmol/L (98-107); Cholesterol 159 mg/dL (140-199); Estimated Glomerular Filt Rate 52 mL/min (>60); Globulin 2.9 g/dL (1.7-4.1); Glucose 82 mg/dL (80-110); HDL Cholesterol 39 mg/dL (40-60); HEMOLYSIS < 15 (0-50); LDL Cholesterol Calculated 84 mg/dL (<100); Potassium 5.5 mmol/L (3.4-5.1); Sodium 133 mmol/L (137-145); Total Protein 6.8 g/dL (6.3-8.2); Triglycerides 180 mg/dL (35-150)
[2023-08-02 11:13] LABS: TSH w/ Reflex to FT4 0.02 uIU/mL (0.47-4.68)
[2023-08-02 11:38] LABS: Free T4, Direct Thyroxine 1.53 ng/dL (0.78-2.19)
== END ==
PROVIDERS: Family Provider Family Medicine; PCP Family Medicine; Referring Provider Internal Medicine Cardiovascular Disease; Visit Provider Internal Medicine Cardiovascular Disease
DX: I10 Essential (primary) hypertension (principal); E78.5 Hyperlipidemia, unspecified; E03.9 Hypothyroidism, unspecified
CPT/HCPCS: 36415; 80053; 80061; 84439; 84443; 85025

== ENCOUNTER → 2024-01-24 06:55 | Outpatient (CLI) | payer MEDICARE, OTHER, SELFPAY ==
[2024-01-24 08:10] LABS: Add Manual Diff / Slide Review NO; Basophils Absolute Auto 0 /uL (0-100); Basophils Percent Auto 0.3 % (0-2); Eosinophils Absolute Auto 500 /uL (0-450); Eosinophils Percent Auto 5.6 % (2-4); Hematocrit 34.2 % (41-53); Hemoglobin 11.8 g/dL (13.5-17.5); Lymphocytes Absolute Auto 1600 /uL (1100-4500); Lymphocytes Percent Auto 17.7 % (25-40); Mean Corpuscular HGB Conc 34.4 % (30-36); Mean Corpuscular Hemoglobin 33.3 PG (26-34); Mean Corpuscular Volume 96.7 fL (80-100); Monocytes Absolute Auto 900 /uL (0-900); Monocytes Percent Auto 9.9 % (3-14); Neutrophils Absolute Auto 5900 /uL (1500-7000); Neutrophils Percent Auto 66.5 % (50-75); Platelet Count 316 X10^3/uL (150-400); Red Blood Cell Count 3.54 X10^6/uL (4.5-5.9); Red Cell Distribution Width 13.7 % (11.6-14.8); White Blood Cell Count 8.8 X10^3/uL (4.5-11.0)
[2024-01-24 08:41] LABS: Alanine Aminotransferase 17 IU/L (<50); Albumin Globulin Ratio 1.2 (1.0-2.8); Alkaline Phosphatase 72 U/L (38-126); Aspartate Aminotransferase 30 IU/L (17-59); BUN Creatinine Ratio 26.9 (6-22); Bilirubin Total 0.7 mg/dL (0.2-1.3); Blood Urea Nitrogen 28 mg/dL (9-20); Calcium 9.3 mg/dL (8.4-10.2); Carbon Dioxide 29 mmol/L (22-32); Chloride 107 mmol/L (98-107); Cholesterol 176 mg/dL (140-199); Estimated Glomerular Filt Rate > 60 mL/min (>60); Globulin 3.4 g/dL (1.7-4.1); Glucose 80 mg/dL (80-110); HDL Cholesterol 42 mg/dL (40-60); HEMOLYSIS < 15 (0-50); LDL Cholesterol Calculated 96 mg/dL (<100); Sodium 140 mmol/L (137-145); Total Protein 7.4 g/dL (6.3-8.2); Triglycerides 190 mg/dL (35-150)
[2024-01-24 09:02] LABS: TSH w/ Reflex to FT4 < 0.02 uIU/mL (0.47-4.68)
== END ==
PROVIDERS: Family Provider Family Medicine; PCP Family Medicine; Referring Provider Internal Medicine Cardiovascular Disease; Visit Provider Internal Medicine Cardiovascular Disease
DX: I10 Essential (primary) hypertension (principal); E78.5 Hyperlipidemia, unspecified; E03.9 Hypothyroidism, unspecified
CPT/HCPCS: 36415; 80053; 80061; 84439; 84443; 85025

== ENCOUNTER → 2024-07-25 07:03 | Outpatient (CLI) | payer MEDICARE, OTHER, SELFPAY ==
[2024-07-25 08:05] LABS: Add Manual Diff / Slide Review NO; Basophils Absolute Auto 0 /uL (0-100); Basophils Percent Auto 0.7 % (0-2); Eosinophils Absolute Auto 400 /uL (0-450); Eosinophils Percent Auto 6.3 % (2-4); Hemoglobin 12.2 g/dL (13.5-17.5); Lymphocytes Absolute Auto 2200 /uL (1100-4500); Lymphocytes Percent Auto 31.9 % (25-40); Mean Corpuscular HGB Conc 33.7 % (30-36); Mean Corpuscular Hemoglobin 33.5 PG (26-34); Mean Corpuscular Volume 99.3 fL (80-100); Monocytes Absolute Auto 500 /uL (0-900); Monocytes Percent Auto 6.9 % (3-14); Neutrophils Absolute Auto 3700 /uL (1500-7000); Neutrophils Percent Auto 54.2 % (50-75); Platelet Count 328 X10^3/uL (150-400); Red Blood Cell Count 3.63 X10^6/uL (4.5-5.9); Red Cell Distribution Width 14.1 % (11.6-14.8); White Blood Cell Count 6.9 X10^3/uL (4.5-11.0)
[2024-07-25 08:32] LABS: Alanine Aminotransferase 17 IU/L (<50); Albumin 4.2 g/dL (3.5-5.0); Albumin Globulin Ratio 1.6 (1.0-2.8); Alkaline Phosphatase 60 U/L (38-126); Aspartate Aminotransferase 38 IU/L (17-59); BUN Creatinine Ratio 26.4 (6-22); Bilirubin Total 0.7 mg/dL (0.2-1.3); Blood Urea Nitrogen 28 mg/dL (9-20); Calcium 9.4 mg/dL (8.4-10.2); Carbon Dioxide 27 mmol/L (22-32); Chloride 103 mmol/L (98-107); Cholesterol 257 mg/dL (140-199); Estimated Glomerular Filt Rate > 60 mL/min (>60); Globulin 2.6 g/dL (1.7-4.1); Glucose 69 mg/dL (80-110); HDL Cholesterol 56 mg/dL (40-60); HEMOLYSIS < 15 (0-50); LDL Cholesterol Calculated 153 mg/dL (<100); Potassium 5.3 mmol/L (3.4-5.1); Sodium 136 mmol/L (137-145); Total Protein 6.8 g/dL (6.3-8.2); Triglycerides 238 mg/dL (35-150)
[2024-07-25 13:39] LABS: Free T4, Direct Thyroxine 0.46 ng/dL (0.78-2.19)
== END ==
PROVIDERS: Family Provider Family Medicine; PCP Family Medicine; Referring Provider Internal Medicine; Visit Provider Internal Medicine
DX: E78.5 Hyperlipidemia, unspecified (principal); I10 Essential (primary) hypertension
CPT/HCPCS: 36415; 80053; 80061; 84439; 84443; 85025

== ENCOUNTER → 2025-01-30 15:18 | Outpatient (ROUT) | payer MEDICARE, OTHER, SELFPAY ==
[2025-01-30 16:05] LABS: Influenza A - CEPHEID Flu A NEGATIVE (NEGATIVE); Influenza B - CEPHEID Flu B NEGATIVE (NEGATIVE); Respiratory Syncytial Virus Negative (Negative)
[2025-01-30 16:06] LABS: COVID-19 CEPHEID 4-PLEX PCR Negative (Negative)
== END ==
LOC: LAB 15:18
PROVIDERS: Family Provider Family Medicine; PCP Family Medicine; Visit Provider Family Medicine
DX: R05.1 Acute cough (principal); Z20.822 Contact with and (suspected) exposure to COVID-19
CPT/HCPCS: 0241U